=== PATIENT | female | born 1945 | race Caucasian/White ===

== ENCOUNTER → 2020-03-01 10:33 | Outpatient (ROUT) | payer OTHER, SELFPAY ==
[2020-03-04 12:12] LABS: COVID19 Sendout Not Detected (Not Detected)
== END ==
PROVIDERS: Visit Provider Internal Medicine
DX: Z11.59 Encounter for screening for other viral diseases (principal)
CPT/HCPCS: 87635

== ENCOUNTER → 2020-03-25 14:56 | Outpatient (CLI) | payer OTHER, SELFPAY ==
--- NOTE | 2020-03-25 | DI.RAD.S_ITS ---
PROCEDURE: XR FEMUR RT MIN 2V INDICATIONS: Other fracture of lower end of right femur TECHNIQUE: 4 views of the femur were acquired. COMPARISON: None. FINDINGS: Bones: No acute fractures or dislocations. No suspicious bony lesions. Note is made of extensive fracture fixation procedures with a left total hip arthroplasty, a large lateral fixation plate crossing from the subtrochanteric level inferiorly to the lateral femoral condyle, and also a medullary dino from below involving the distal femur. No evidence of device loosening or disruption. No definite osteomyelitis is found. No comparison images. Soft tissues: No suspicious soft tissue calcifications or masses. IMPRESSION: Extensive prior fracture fixation at the right femur, no comparison images are available for review and therefore the study is appreciably limited. This current study shows normal alignment and no evidence of fracture fixation device disruption. Dictated by: Romaine Peters M.D. on 03/25/2020 at 16:18 Approved by: Romaine Peters M.D. on 03/25/2020 at 16:20
== END ==
PROVIDERS: Referring Provider Registered Nurse; Visit Provider Registered Nurse
DX: S72.491D Other fracture of lower end of right femur, subsequent encounter for closed fracture with routine healing (principal); X58.XXXD Exposure to other specified factors, subsequent encounter
CPT/HCPCS: 73552

== ENCOUNTER → 2020-03-27 12:08 | Outpatient (ROUT) | payer OTHER, SELFPAY ==
[2020-03-29 18:39] LABS: COVID19 Sendout Not Detected (Not Detected)
== END ==
PROVIDERS: Visit Provider Internal Medicine
DX: Z11.59 Encounter for screening for other viral diseases (principal)
CPT/HCPCS: 87635

== ENCOUNTER → 2020-04-03 08:43 | Outpatient (ROUT) | payer OTHER, SELFPAY ==
[2020-04-03 09:07] LABS: Add Manual Diff / Slide Review NO; Basophils Absolute Auto 0 /uL (0-100); Basophils Percent Auto 0.4 % (0-2); Eosinophils Absolute Auto 200 /uL (0-450); Eosinophils Percent Auto 3.5 % (2-4); Hematocrit 31.4 % (36-46); Hemoglobin 10.1 g/dL (12.0-16.0); Lymphocytes Absolute Auto 1100 /uL (1100-4500); Lymphocytes Percent Auto 17.1 % (25-40); Mean Corpuscular HGB Conc 32.1 % (30-36); Mean Corpuscular Hemoglobin 28.5 PG (26-34); Mean Corpuscular Volume 88.9 fL (80-100); Monocytes Absolute Auto 700 /uL (0-900); Monocytes Percent Auto 10.5 % (3-14); Neutrophils Absolute Auto 4400 /uL (1500-7000); Neutrophils Percent Auto 68.5 % (50-75); Platelet Count 295 X10^3/uL (150-400); Red Blood Cell Count 3.53 X10^6/uL (4.0-5.2); Red Cell Distribution Width 16.7 % (11.6-14.8); White Blood Cell Count 6.5 X10^3/uL (4.5-11.0)
[2020-04-03 09:12] LABS: Alanine Aminotransferase 10 IU/L (<35); Albumin 3.4 g/dL (3.5-5.0); Albumin Globulin Ratio 1.4 (1.0-2.8); Alkaline Phosphatase 90 U/L (38-126); Aspartate Aminotransferase 22 IU/L (14-36); BUN Creatinine Ratio 23.2 (6-22); Bilirubin Total 0.7 mg/dL (0.2-1.3); Blood Urea Nitrogen 16 mg/dL (7-17); Calcium 9.5 mg/dL (8.4-10.2); Carbon Dioxide 29 mmol/L (22-32); Chloride 101 mmol/L (98-107); Cholesterol 134 mg/dL (140-199); Estimated Glomerular Filt Rate > 60.0 mL/min (>60); Globulin 2.4 g/dL (1.7-4.1); Glucose 82 mg/dL (80-110); HDL Cholesterol 56 mg/dL (40-60); HEMOLYSIS < 15 (0-50); LDL Cholesterol Calculated 52 mg/dL (<100); Magnesium 2.1 mg/dL (1.6-2.3); Potassium 4.8 mmol/L (3.4-5.1); Sodium 135 mmol/L (137-145); Total Protein 5.8 g/dL (6.3-8.2); Triglycerides 130 mg/dL (35-150)
[2020-04-03 09:42] LABS: Thyroid Stimulating Hormone 2.47 uIU/mL (0.47-4.68)
[2020-04-03 10:03] LABS: Vitamin B12 240 pg/mL (239-931)
== END ==
PROVIDERS: Visit Provider Nurse Practitioner Family
DX: Z98.890 Other specified postprocedural states (principal); R41.89 Other symptoms and signs involving cognitive functions and awareness; R73.9 Hyperglycemia, unspecified
CPT/HCPCS: 80053; 80061; 82607; 83036; 83735; 84443; 85025

== ENCOUNTER → 2020-04-13 06:51 | Outpatient (ROUT) | payer OTHER, SELFPAY ==
[2020-04-13 07:46] LABS: BUN Creatinine Ratio 26.4 (6-22); Blood Urea Nitrogen 19 mg/dL (7-17); Calcium 9.3 mg/dL (8.4-10.2); Carbon Dioxide 29 mmol/L (22-32); Chloride 102 mmol/L (98-107); Estimated Glomerular Filt Rate > 60.0 mL/min (>60); Glucose 94 mg/dL (80-110); HEMOLYSIS < 15 (0-50); Sodium 136 mmol/L (137-145)
== END ==
PROVIDERS: Visit Provider Registered Nurse
DX: R60.9 Edema, unspecified (principal); Z79.899 Other long term (current) drug therapy
CPT/HCPCS: 36415; 80048

== ENCOUNTER → 2020-05-08 08:09 | Outpatient (ROUT) | payer OTHER, SELFPAY ==
[2020-05-08 09:09] LABS: BUN Creatinine Ratio 21.4 (6-22); Blood Urea Nitrogen 18 mg/dL (7-17); Calcium 9.7 mg/dL (8.4-10.2); Carbon Dioxide 32 mmol/L (22-32); Chloride 96 mmol/L (98-107); Estimated Glomerular Filt Rate > 60.0 mL/min (>60); Glucose 85 mg/dL (80-110); HEMOLYSIS < 15 (0-50); Potassium 4.5 mmol/L (3.4-5.1); Sodium 136 mmol/L (137-145)
== END ==
PROVIDERS: PCP Nurse Practitioner Family; Visit Provider Nurse Practitioner Family
DX: R60.9 Edema, unspecified (principal)
CPT/HCPCS: 36415; 80048

== ENCOUNTER → 2020-07-10 08:30 | Outpatient (ROUT) | payer MEDICARE, SELFPAY ==
[2020-07-10 08:57] LABS: Add Manual Diff / Slide Review NO; Basophils Absolute Auto 0 /uL (0-100); Basophils Percent Auto 0.5 % (0-2); Eosinophils Absolute Auto 200 /uL (0-450); Eosinophils Percent Auto 4.2 % (2-4); Hematocrit 27.4 % (36-46); Lymphocytes Absolute Auto 1000 /uL (1100-4500); Mean Corpuscular HGB Conc 32.9 % (30-36); Mean Corpuscular Hemoglobin 29.9 PG (26-34); Mean Corpuscular Volume 90.9 fL (80-100); Monocytes Absolute Auto 700 /uL (0-900); Monocytes Percent Auto 13.6 % (3-14); Neutrophils Absolute Auto 3500 /uL (1500-7000); Neutrophils Percent Auto 63.7 % (50-75); Platelet Count 286 X10^3/uL (150-400); Red Blood Cell Count 3.01 X10^6/uL (4.0-5.2); Red Cell Distribution Width 14.6 % (11.6-14.8); White Blood Cell Count 5.5 X10^3/uL (4.5-11.0)
[2020-07-10 09:20] LABS: BUN Creatinine Ratio 28.4 (6-22); Blood Urea Nitrogen 21 mg/dL (7-17); Calcium 9.2 mg/dL (8.4-10.2); Carbon Dioxide 30 mmol/L (22-32); Chloride 101 mmol/L (98-107); Estimated Glomerular Filt Rate > 60.0 mL/min (>60); Glucose 84 mg/dL (80-110); HEMOLYSIS < 15 (0-50); Potassium 4.1 mmol/L (3.4-5.1); Sodium 135 mmol/L (137-145)
[2020-07-10 09:51] LABS: Thyroid Stimulating Hormone 2.91 uIU/mL (0.47-4.68)
[2020-07-10 10:08] LABS: Vitamin B12 380 pg/mL (239-931)
== END ==
PROVIDERS: PCP Nurse Practitioner Family; Visit Provider Nurse Practitioner Family
DX: R60.9 Edema, unspecified (principal); F32.9 Major depressive disorder, single episode, unspecified; Z79.899 Other long term (current) drug therapy
CPT/HCPCS: 36415; 80048; 82607; 84443; 85025

== ENCOUNTER → 2020-07-14 12:41 | Outpatient (ROUT) | payer MEDICARE, SELFPAY ==
[2020-07-14 13:49] LABS: HEMOLYSIS < 15 (0-50); Iron 80 ug/dL (37-170)
[2020-07-14 14:00] LABS: Percent Iron Saturation 22 % (15-50); Total Iron Binding Capacity 366 ug/dL (265-497); Transferrin 283 mg/dL (206-381)
[2020-07-14 15:53] LABS: Ferritin 31 ng/mL (11-264)
[2020-07-14 16:24] LABS: Folate > 20.0 ng/mL (2.76-20.0)
== END ==
PROVIDERS: PCP Nurse Practitioner Family; Visit Provider Nurse Practitioner Family
DX: D64.9 Anemia, unspecified (principal)
CPT/HCPCS: 36415; 82728; 82746; 83540; 83550

== ENCOUNTER → 2020-08-12 13:24 | Outpatient (CLI) | payer MEDICARE, SELFPAY ==
[2020-08-12 14:58] LABS: Add Manual Diff / Slide Review NO; Basophils Absolute Auto 0 /uL (0-100); Basophils Percent Auto 0.4 % (0-2); Eosinophils Absolute Auto 200 /uL (0-450); Eosinophils Percent Auto 3.3 % (2-4); Hematocrit 31.9 % (36-46); Hemoglobin 10.4 g/dL (12.0-16.0); Lymphocytes Absolute Auto 1100 /uL (1100-4500); Lymphocytes Percent Auto 19.5 % (25-40); Mean Corpuscular HGB Conc 32.6 % (30-36); Mean Corpuscular Hemoglobin 29.6 PG (26-34); Mean Corpuscular Volume 90.9 fL (80-100); Monocytes Absolute Auto 600 /uL (0-900); Monocytes Percent Auto 10.6 % (3-14); Neutrophils Absolute Auto 3800 /uL (1500-7000); Neutrophils Percent Auto 66.2 % (50-75); Platelet Count 287 X10^3/uL (150-400); Red Blood Cell Count 3.51 X10^6/uL (4.0-5.2); Red Cell Distribution Width 14.5 % (11.6-14.8); White Blood Cell Count 5.8 X10^3/uL (4.5-11.0)
[2020-08-12 15:54] LABS: BUN Creatinine Ratio 25.3 (6-22); Blood Urea Nitrogen 21 mg/dL (7-17); Calcium 9.4 mg/dL (8.4-10.2); Carbon Dioxide 31 mmol/L (22-32); Chloride 96 mmol/L (98-107); Estimated Glomerular Filt Rate > 60.0 mL/min (>60); Glucose 103 mg/dL (80-110); HEMOLYSIS < 15 (0-50); Potassium 4.7 mmol/L (3.4-5.1); Sodium 134 mmol/L (137-145)
== END ==
PROVIDERS: PCP Nurse Practitioner Family; Referring Provider Nurse Practitioner Family; Visit Provider Nurse Practitioner Family
DX: D64.9 Anemia, unspecified (principal); R60.9 Edema, unspecified
CPT/HCPCS: 36415; 80048; 85025

== ENCOUNTER → 2020-08-26 08:27 | Outpatient (ROUT) | payer MEDICARE, SELFPAY ==
[2020-08-26 09:24] LABS: BUN Creatinine Ratio 24.7 (6-22); Blood Urea Nitrogen 23 mg/dL (7-17); Calcium 9.2 mg/dL (8.4-10.2); Carbon Dioxide 34 mmol/L (22-32); Chloride 98 mmol/L (98-107); Estimated Glomerular Filt Rate 58.6 mL/min (>60); Glucose 76 mg/dL (80-110); HEMOLYSIS < 15 (0-50); Potassium 4.2 mmol/L (3.4-5.1); Sodium 133 mmol/L (137-145)
== END ==
PROVIDERS: PCP Nurse Practitioner Family; Visit Provider Nurse Practitioner Family
DX: R60.9 Edema, unspecified (principal)
CPT/HCPCS: 36415; 80048

== ENCOUNTER → 2020-09-30 07:29 | Outpatient (ROUT) | payer MEDICARE, SELFPAY ==
[2020-09-30 08:22] LABS: Add Manual Diff / Slide Review NO; Basophils Absolute Auto 0 /uL (0-100); Basophils Percent Auto 0.4 % (0-2); Eosinophils Absolute Auto 200 /uL (0-450); Eosinophils Percent Auto 4.4 % (2-4); Hematocrit 30.9 % (36-46); Hemoglobin 10.1 g/dL (12.0-16.0); Lymphocytes Absolute Auto 1000 /uL (1100-4500); Lymphocytes Percent Auto 18.1 % (25-40); Mean Corpuscular HGB Conc 32.7 % (30-36); Mean Corpuscular Volume 91.6 fL (80-100); Monocytes Absolute Auto 800 /uL (0-900); Monocytes Percent Auto 13.4 % (3-14); Neutrophils Absolute Auto 3600 /uL (1500-7000); Neutrophils Percent Auto 63.7 % (50-75); Platelet Count 255 X10^3/uL (150-400); Red Blood Cell Count 3.38 X10^6/uL (4.0-5.2); Red Cell Distribution Width 14.7 % (11.6-14.8); White Blood Cell Count 5.6 X10^3/uL (4.5-11.0)
[2020-09-30 08:51] LABS: BUN Creatinine Ratio 32.7 (6-22); Blood Urea Nitrogen 33 mg/dL (7-17); Calcium 9.1 mg/dL (8.4-10.2); Carbon Dioxide 31 mmol/L (22-32); Chloride 98 mmol/L (98-107); Estimated Glomerular Filt Rate 53.3 mL/min (>60); Glucose 87 mg/dL (80-110); HEMOLYSIS < 15 (0-50); Potassium 4.1 mmol/L (3.4-5.1); Sodium 134 mmol/L (137-145)
== END ==
PROVIDERS: PCP Nurse Practitioner Family; Visit Provider Nurse Practitioner Family
DX: R05 Cough (principal); R60.9 Edema, unspecified; Z79.899 Other long term (current) drug therapy
CPT/HCPCS: 36415; 80048; 85025

== ENCOUNTER → 2020-10-21 07:23 | Outpatient (ROUT) | payer MEDICARE, SELFPAY ==
[2020-10-21 08:38] LABS: BUN Creatinine Ratio 28.3 (6-22); Blood Urea Nitrogen 32 mg/dL (7-17); Calcium 9.5 mg/dL (8.4-10.2); Carbon Dioxide 30 mmol/L (22-32); Chloride 99 mmol/L (98-107); Estimated Glomerular Filt Rate 46.8 mL/min (>60); Glucose 91 mg/dL (80-110); HEMOLYSIS < 15 (0-50); Sodium 135 mmol/L (137-145)
== END ==
PROVIDERS: PCP Nurse Practitioner Family; Visit Provider Nurse Practitioner Family
DX: R60.9 Edema, unspecified (principal); Z79.899 Other long term (current) drug therapy
CPT/HCPCS: 36415; 80048

== ENCOUNTER → 2020-10-26 15:53 | Outpatient (CLI) | payer MEDICARE, SELFPAY ==
--- NOTE | 2020-10-26 15:54 | DI.ECHO.S_ITS ---
[facility]+ [facility] +---------+ : : [address] : [place] : : : : [id number] : : : : Phone: [phone]+ Echocardiogram Report + + :Name: FLORENTIN DILLON Study Date: 10/26/2020 Height: 62 in : :[facility] ReadingLocation: Weight: 265 lb : : Gender: Female BSA: 2.2 m2 : :: 1945 Age: 75 yrs BP: 121/77 mmHg: :Reason For Study: LE SWELLING AND A-FIB : :Ordering Physician: CAS- : :JAGDEEP LUGO Performed By: Monisha De Santiago : :Referring: JAGDEEP ASTUDILLO : + + Interpretation Summary Patient scanned supine in wheelchair due to severe pain when putting weight on feet. The study quality was technically difficult. The left ventricle is normal in size and wall thickness. The ejection fraction is estimated to be 60-65%. The right ventricle is normal in size and function. All the valves were not well visualized however no significant gross abnormalities seen. The IVC is of normal diameter and collapses greater than 50% with a sniff. This suggests a low right atrial pressure of 3 mm Hg. Procedure: A two-dimensional transthoracic echocardiogram with color flow and Doppler was performed. The study quality was technically difficult. There is no prior echocardiogram noted for this patient. The patient was in sinus rhythm with heart rates between 70-86 bpm during the exam. Left Ventricle: The left ventricle is normal in size and wall thickness. There is no thrombus. The ejection fraction is estimated to be 60-65%. There are no obvious focal wall motion abnormalities noted but poor endocardial definition reduces the sensitivity for the detection of such. Diastolic parameters suggest a relaxation abnormality of the left ventricle, consistent with probable normal filling pressures. Right Ventricle: The right ventricle is normal in size and function. Atria: The left atrium is borderline dilated. Right atrial size is normal. There is no Doppler evidence for an interatrial shunt. Mitral Valve: The mitral valve leaflets appear mildly thickened, but open well. There is mild mitral annular calcification. There is trace mitral regurgitation. Aortic Valve: There is mild aortic valve sclerosis. The aortic valve is not well visualized. The aortic valve is mildly calcified. There is no hemodynamically significant valvular aortic stenosis. No aortic regurgitation is present. Tricuspid Valve: The tricuspid valve is not well visualized, but is grossly normal. There is trace tricuspid regurgitation. The right ventricular systolic pressure is estimated to be at least 29 mmHg based on an estimated right atrial pressure of 3 mm Hg. Pulmonic Valve: The pulmonic valve is not well visualized. Great Vessels: The aortic root is normal size. The ascending aorta could not be visualized. The IVC is of normal diameter and collapses greater than 50% with a sniff. This suggests a low right atrial pressure of 3 mm Hg. Pericardium/ Pleura There is no pericardial effusion. There is no pleural effusion. MMode/2D Measurements & Calculations LVIDd: 5.0 cm LVOT diam: 2.0 cm LVIDs: 3.7 cm Ao root diam: 3.4 cm FS: 26.6 % EPSS: 0.88 cm IVSd: 1.0 cm LVPWd: 0.88 cm LV peoples. diameter/BSA (cm/m^2): 2.3 LV sys. diameter/BSA (cm/m^2): 1.7 LA A2 area: 21.5 cm2 RA long axis: 5.2 cm LA A4 area: 18.2 cm2 RA area: 18.8 cm2 LA length (vol): 4.6 cm RA vol: 58.6 ml LA vol: 71.6 ml RA : 27.2 ml/m2 LA vol index: 33.2 ml/m2 IVC diam: 1.4 cm RVD1 (basal): 3.6 cm TAPSE: 2.4 cm Doppler Measurements & Calculations Ao V2 max: 184.7 cm/sec LVOT Max Hammad: 103.9 cm/sec Ao V2 mean: 136.2 cm/sec LV V1 max P.3 mmHg Ao max P.6 mmHg LV V1 VTI: 22.8 cm Ao mean P.3 mmHg ANGEL(I,D): 1.7 cm2 Ao V2 VTI: 40.5 cm ANGEL(V,D): 1.7 cm2 sev ratio: 0.56 ANGEL indexed to BSA (cm^2/m^2): 0.81 MV E max hammad: 65.9 cm/sec TR max hammad: 254.0 cm/sec MV A max hammad: 77.0 cm/sec TR max P.8 mmHg MV E/A: 0.86 Med Peak E' Hammad: 6.1 cm/sec E/E' med: 10.8 Lat Peak E' Hammad: 10.0 cm/sec E/E' lat: 6.6 E/e' average: 8.7 MV dec time: 0.19 sec SV(LVOT): 70.4 ml Reading Physician:06:05 PM
== END ==
PROVIDERS: PCP Nurse Practitioner Family; Referring Provider Nurse Practitioner Family; Visit Provider Nurse Practitioner Family
DX: I48.91 Unspecified atrial fibrillation (principal); M79.89 Other specified soft tissue disorders
CPT/HCPCS: 93306

== ENCOUNTER → 2020-11-11 07:37 | Outpatient (ROUT) | payer MEDICARE, SELFPAY ==
[2020-11-11 08:23] LABS: Blood Urea Nitrogen 25 mg/dL (7-17); Calcium 9.7 mg/dL (8.4-10.2); Carbon Dioxide 32 mmol/L (22-32); Chloride 96 mmol/L (98-107); Estimated Glomerular Filt Rate 51.5 mL/min (>60); Glucose 80 mg/dL (80-110); HEMOLYSIS < 15 (0-50); Potassium 3.7 mmol/L (3.4-5.1); Sodium 134 mmol/L (137-145)
== END ==
PROVIDERS: PCP Nurse Practitioner Family; Visit Provider Nurse Practitioner Family
DX: N17.9 Acute kidney failure, unspecified (principal)
CPT/HCPCS: 36415; 80048

== ENCOUNTER → 2020-12-02 08:05 | Outpatient (ROUT) | payer MEDICARE, SELFPAY ==
[2020-12-02 08:58] LABS: BUN Creatinine Ratio 25.9 (6-22); Blood Urea Nitrogen 22 mg/dL (9-20); Calcium 9.9 mg/dL (8.4-10.2); Carbon Dioxide 29 mmol/L (22-32); Chloride 97 mmol/L (98-107); Estimated Glomerular Filt Rate > 60.0 mL/min (>60); Glucose 96 mg/dL (80-110); HEMOLYSIS < 15 (0-50); Potassium 3.5 mmol/L (3.4-5.1); Sodium 137 mmol/L (137-145)
== END ==
PROVIDERS: Visit Provider Nurse Practitioner Family
DX: R60.9 Edema, unspecified (principal); Z79.899 Other long term (current) drug therapy
CPT/HCPCS: 36415; 80048

== ENCOUNTER → 2020-12-09 07:34 | Outpatient (ROUT) | payer MEDICARE, SELFPAY ==
[2020-12-09 08:51] LABS: Add Manual Diff / Slide Review NO; Basophils Absolute Auto 0 /uL (0-100); Basophils Percent Auto 0.5 % (0-2); Eosinophils Absolute Auto 200 /uL (0-450); Eosinophils Percent Auto 3.3 % (2-4); Hematocrit 30.3 % (36-46); Hemoglobin 10.2 g/dL (12.0-16.0); Lymphocytes Absolute Auto 800 /uL (1100-4500); Lymphocytes Percent Auto 14.5 % (25-40); Mean Corpuscular HGB Conc 33.6 % (30-36); Mean Corpuscular Hemoglobin 30.9 PG (26-34); Mean Corpuscular Volume 92.1 fL (80-100); Monocytes Absolute Auto 700 /uL (0-900); Monocytes Percent Auto 13.6 % (3-14); Neutrophils Absolute Auto 3600 /uL (1500-7000); Neutrophils Percent Auto 68.1 % (50-75); Platelet Count 298 X10^3/uL (150-400); Red Cell Distribution Width 13.7 % (11.6-14.8); White Blood Cell Count 5.3 X10^3/uL (4.5-11.0)
[2020-12-09 09:06] LABS: Alanine Aminotransferase 13 IU/L (<35); Albumin 3.7 g/dL (3.5-5.0); Albumin Globulin Ratio 1.4 (1.0-2.8); Alkaline Phosphatase 57 U/L (38-126); Aspartate Aminotransferase 20 IU/L (14-36); BUN Creatinine Ratio 24.7 (6-22); Bilirubin Total 0.2 mg/dL (0.2-1.3); Blood Urea Nitrogen 22 mg/dL (7-17); Calcium 9.7 mg/dL (8.4-10.2); Carbon Dioxide 30 mmol/L (22-32); Chloride 100 mmol/L (98-107); Estimated Glomerular Filt Rate > 60.0 mL/min (>60); Globulin 2.6 g/dL (1.7-4.1); Glucose 105 mg/dL (80-110); HEMOLYSIS < 15 (0-50); Magnesium 2.1 mg/dL (1.6-2.3); Potassium 3.6 mmol/L (3.4-5.1); Sodium 138 mmol/L (137-145); Total Protein 6.3 g/dL (6.3-8.2)
[2020-12-09 09:11] LABS: Erythrocyte Sedimentation Rate 45 MM/HR (0-20)
[2020-12-11 23:21] LABS: CCP Antibodies IgG/IgA 2 units (0-19)
== END ==
PROVIDERS: PCP Nurse Practitioner Family; Visit Provider Nurse Practitioner Family
DX: R25.2 Cramp and spasm (principal); R52 Pain, unspecified; N18.9 Chronic kidney disease, unspecified
CPT/HCPCS: 36415; 80053; 83735; 85025; 85651; 86140; 86200

== ENCOUNTER → 2020-12-16 07:49 | Outpatient (ROUT) | payer MEDICARE, SELFPAY ==
[2020-12-16 09:38] LABS: Cortisol AM (Before 10AM) 16.2 ug/dL (4.46-22.7)
[2020-12-16 10:03] LABS: Thyroid Stimulating Hormone 3.67 uIU/mL (0.47-4.68)
[2020-12-18 00:07] LABS: Aldolase 4.4 U/L (3.3-10.3)
== END ==
PROVIDERS: PCP Nurse Practitioner Family; Visit Provider Internal Medicine
DX: R63.5 Abnormal weight gain (principal); Z72.9 Problem related to lifestyle, unspecified
CPT/HCPCS: 36415; 82085; 82533; 84443

== ENCOUNTER 2020-12-16 22:51 | Emergency (ER) | payer MEDICARE, SELFPAY ==
[2020-12-16 23:13] VITALS: BP 137/89; PULSE 93; RESP 20; TEMP 36.7; O2SAT 96
--- NOTE | 2020-12-17 00:48 | ED.EXTPRO ---
HPI - Extremity Problem General Chief complaint: Extremity Problem,Nontraumatic Stated complaint: bilateral lower leg pain Time Seen by Provider: 12/17/20 00:47 Source: patient Mode of arrival: Ambulatory History of Present Illness HPI Narrative: Patient is a 75-year-old female who has chronic ongoing bilateral lower leg pain. She has chronic lymphedema and has severe arthritis. She says her pain has progressively gotten worse over time and now she has actually severe anxiety every time the thought of moving happened. She was started on 0.5 mg of lorazepam about 9 days ago. She says is not really helping. She says if she does not move she does not have severe pain. She currently is not having severe pain she feels of her anxiety was taken care of the it would help her pain. She denies any fever or chills MD Complaint: extremity pain and extremity swelling Related Data Allergies Allergy/AdvReac Type Severity Reaction Status Date / Time codeine Allergy Verified 12/17/20 01:17 diphenhydramine Allergy Verified 12/17/20 01:16 [From Benadryl Allergy] Penicillins Allergy Verified 12/17/20 01:17 Review of Systems Review of Systems Narrative: GENERAL: Denies chills,fever HEENT: Denies throat pain RESPIRATORY: Denies dyspnea, cough, wheezing CARDIOVASCULAR: Denies chest pain, palpitations GASTROINTESTINAL: Denies nausea, vomiting MUSCULOSKELETAL: See HPI SKIN: No rash, no laceration, no pruritus NEUROLOGIC: Denies weakness, dizziness, headache, numbness PSYCH: Anxious 8 point review of systems is negative except for those stated above and HPI Patient History Medical History Arthritis Lymphedema Exam Initial Vital Signs Initial Vital Signs: Vital Signs Temperature 98.0 F 12/16/20 23:13 Pulse Rate 93 H 12/16/20 23:13 Respiratory Rate 20 12/16/20 23:13 Blood Pressure 137/89 12/16/20 23:13 Pulse Oximetry 96 12/16/20 23:13 GENERAL: Pleasant 75-year-old female sitting in wheelchair CARDIOVASCULAR: peripheral pulses in tact, cap refill <2 sec RESPIRATORY: No respiratory distress, speaks in full sentences without difficulty EXTREMITIES: Lower extremities are bilateral lymphedema no erythema need are nontender NEUROLOGICAL: Cranial nerves II through XII grossly intact. Normal gait and speech. SKIN: Warm, dry, no petechiae, no rashes or lesions. Course Orders Ordered: Discontinued Medications Lorazepam (Lorazepam 0.5 Mg Tablet) 1 mg PO NOW ONE Stop: 12/17/20 01:04 Last Admin: 12/17/20 01:15 Dose: 1 mg Documented by: LACEY Vital Signs Vital signs: Vital Signs - 8 hr 12/16/20 23:13 12/17/20 01:30 Temperature 98.0 F Pulse Rate 93 H 88 Respiratory Rate 20 20 Blood Pressure 137/89 130/80 Pulse Oximetry 96 97 MDM - Extremity (Nontraumatic) MDM Narrative Medical decision making narrative: Patient is having acute on chronic pain ongoing anxiety. She has chronic lymphedema and chronic osteoarthritis pain seems to be controlled when she is not moving or doing anything however when she starts the pain gets quite severe in she is quite anxious about it. I discussed with her if she needs something for pain in the emergency department or more something for anxiety to help her cope with the pain. At this time she is requesting something for anxiety. Records reveal that she has been getting 0.5 mg of lorazepam which she states is not working will try 1 mg this evening to see if it helps. She does need to follow up with primary care provider in regards to chronic ongoing pain management Discharge Plan Departure Patient Disposition: Home Clinical Impression: Lymphedema, Chronic pain, Anxiety Instructions: DI for Anxiety -- Adult Activity Restrictions/Additional Instructions: *You have been diagnosed with chronic pain and anxiety *What to do: I believe we are having some anxiety about her chronic pain. Unfortunately please discuss medications and options with her primary care provider you may also need to revisit orthopedics *Continue to take medications as directed You were given Ativan/lorazepam 1 mg instead of 0.5 mg this evening if this is helpful please talk to your primary care provider *Follow up with your primary care provider in 2-3 days *Return to ER if you should have fever chills worsening pain worsening anxiety or any new, worsening or concerning symptoms Referrals: Inés Whitley ARNP [Primary Care Provider] -
[2020-12-17] MEDS: LORazepam 0.5 MG TABLET 1 MG PO (01:15)
[2020-12-17 01:30] VITALS: BP 130/80; PULSE 88; RESP 20; O2SAT 97
== END 2020-12-17 01:40 | disposition home or self-care (01) ==
PROVIDERS: Emergency Provider Emergency Medicine; PCP Nurse Practitioner Family
DX: I89.0 Lymphedema, not elsewhere classified (principal); G89.29 Other chronic pain; F41.9 Anxiety disorder, unspecified
CPT/HCPCS: 99283

== ENCOUNTER → 2021-01-23 11:30 | Outpatient (ROUT) | payer MEDICARE, SELFPAY ==
[2021-01-23 11:35] LABS: RBC Urine None Seen (0-5/HPF)
[2021-01-23 11:49] LABS: Bilirubin Urine UA NEGATIVE (NEGATIVE); Color Urine UA YELLOW; Glucose Urine UA NEGATIVE (Negative); Ketones Urine UA NEGATIVE (NEGATIVE); Leukocyte Esterase Urine UA 2+ (NEGATIVE); Nitrite Urine UA POSITIVE (Negative); Occult Blood Urine UA NEGATIVE (Negative); Protein Urine UA NEGATIVE (Negative); Urobilinogen Urine UA 0.2 E.U./dL (0.2)
[2021-01-23 11:50] LABS: Appearance Urine UA CLOUDY
[2021-01-23 12:00] LABS: Amorphous Sediment Urine 2+; Bacteria Urine Many (>30); Squamous Epithelial Cell Urine 5-10 /HPF (0-5/HPF); WBC Urine 10-30/HPF (0-5/HPF)
[2021-01-23 12:01] LABS: Mucus Urine 2+ (Negative)
== END ==
PROVIDERS: PCP Nurse Practitioner Family; Visit Provider Nurse Practitioner Family
DX: R35.0 Frequency of micturition (principal)
CPT/HCPCS: 81001; 87077; 87086; 87186

== ENCOUNTER → 2021-03-10 15:41 | Outpatient (ROUT) | payer MEDICARE, SELFPAY ==
[2021-03-10 15:43] LABS: RBC Urine None Seen (0-5/HPF); WBC Urine None Seen (0-5/HPF)
[2021-03-10 15:47] LABS: Appearance Urine UA CLEAR; Bilirubin Urine UA NEGATIVE (NEGATIVE); Color Urine UA YELLOW; Glucose Urine UA NEGATIVE (Negative); Ketones Urine UA NEGATIVE (NEGATIVE); Leukocyte Esterase Urine UA TRACE (NEGATIVE); Nitrite Urine UA NEGATIVE (Negative); Occult Blood Urine UA NEGATIVE (Negative); Protein Urine UA NEGATIVE (Negative)
[2021-03-10 16:02] LABS: pH Urine UA 6.5 (4.5-8.0)
[2021-03-10 16:05] LABS: Bacteria Urine Many (>30); Culture Indicated Urine Specimen Cultured; Squamous Epithelial Cell Urine 0-1 /HPF (0-5/HPF)
== END ==
PROVIDERS: PCP Nurse Practitioner Family; Visit Provider Nurse Practitioner Family
DX: R30.0 Dysuria (principal)
CPT/HCPCS: 81001; 87077; 87086

== ENCOUNTER → 2021-03-31 08:42 | Outpatient (ROUT) | payer MEDICARE, SELFPAY ==
[2021-03-31 09:32] LABS: Add Manual Diff / Slide Review NO; Basophils Absolute Auto 0 /uL (0-100); Basophils Percent Auto 0.2 % (0-2); Eosinophils Absolute Auto 100 /uL (0-450); Eosinophils Percent Auto 1.9 % (2-4); Hematocrit 31.8 % (36-46); Hemoglobin 10.3 g/dL (12.0-16.0); Lymphocytes Absolute Auto 1500 /uL (1100-4500); Lymphocytes Percent Auto 24.1 % (25-40); Mean Corpuscular HGB Conc 32.6 % (30-36); Mean Corpuscular Hemoglobin 29.5 PG (26-34); Mean Corpuscular Volume 90.5 fL (80-100); Monocytes Absolute Auto 800 /uL (0-900); Neutrophils Absolute Auto 3700 /uL (1500-7000); Neutrophils Percent Auto 60.8 % (50-75); Platelet Count 279 X10^3/uL (150-400); Red Blood Cell Count 3.51 X10^6/uL (4.0-5.2); Red Cell Distribution Width 15.6 % (11.6-14.8); White Blood Cell Count 6.1 X10^3/uL (4.5-11.0)
[2021-03-31 09:59] LABS: Alanine Aminotransferase 12 IU/L (<35); Albumin 3.7 g/dL (3.5-5.0); Albumin Globulin Ratio 1.3 (1.0-2.8); Alkaline Phosphatase 69 U/L (38-126); Aspartate Aminotransferase 21 IU/L (14-36); Blood Urea Nitrogen 13 mg/dL (7-17); Calcium 9.6 mg/dL (8.4-10.2); Carbon Dioxide 31 mmol/L (22-32); Chloride 100 mmol/L (98-107); Estimated Glomerular Filt Rate > 60.0 mL/min (>60); Globulin 2.8 g/dL (1.7-4.1); Glucose 91 mg/dL (80-110); HEMOLYSIS < 15 (0-50); Potassium 3.5 mmol/L (3.4-5.1); Sodium 139 mmol/L (137-145); Total Protein 6.5 g/dL (6.3-8.2)
[2021-03-31 10:08] LABS: NT-proBNP (BNP-Adult 18+) 197 pg/mL (<450)
[2021-03-31 10:47] LABS: Vitamin B12 738 pg/mL (239-931)
== END ==
PROVIDERS: PCP Nurse Practitioner Family; Visit Provider Nurse Practitioner Family
DX: F32.9 Major depressive disorder, single episode, unspecified (principal); R60.9 Edema, unspecified
CPT/HCPCS: 36415; 80053; 82607; 83880; 85025

== ENCOUNTER 2021-04-02 14:07 | Observation (INO) | payer MEDICARE, SELFPAY ==
[2021-04-02 14:18] VITALS: BP 120/56; PULSE 81; RESP 18; TEMP 37.4; O2SAT 96; BMI 50.1
--- NOTE | 2021-04-02 14:22 | DI.CT.S_ITS ---
PROCEDURE: CT HEAD/BRAIN WO CON INDICATIONS: altered mental status, word finding problems. unknown onset TECHNIQUE: Noncontrast 4.5 mm thick angled axial sections acquired from the foramen magnum to the vertex, with coronal and sagittal reformats. For radiation dose reduction, the following was used: automated exposure control, adjustment of mA and/or kV according to patient size. COMPARISON: None. FINDINGS: Image quality: Excellent. CSF spaces: Basal cisterns are patent. No extra-axial fluid collections. The ventricles are symmetric in size and shape. Brain: No intracranial bleeds or masses. There is cerebral volume loss for age, with resultant ventricular and sulcal prominence. There are periventricular and deep white matter chronic small vessel ischemic changes. There is intracranial internal carotid artery atherosclerosis. Skull and face: Calvarium and visualized facial bones appear intact, without suspicious lesions. Sinuses: Visualized sinuses and mastoids are clear. IMPRESSION: 1. Age related volume loss and small vessel ischemic change. 2. No evidence acute stroke, hemorrhage, or mass. Dictated by: Franklin Mckeon M.D. on 04/02/2021 at 14:54 Approved by: Franklin Mckeon M.D. on 04/02/2021 at 14:55
--- NOTE | 2021-04-02 14:23 | DI.CT.S_ITS ---
PROCEDURE: CT ANGIO HEAD AND NECK INDICATIONS: stroke TECHNIQUE: After the administration of intravenous contrast, 1 mm thick sections acquired from the aortic arch through the [place]. Post-contrast 4.5 mm thick sections then re-acquired from the foramen magnum to the vertex. 3-dimensional dcjvpmk-iocxkigly-cazmikdojl (MIP) and/or volume rendering reformats were acquired of the central intracranial vasculature and neck separately. COMPARISON: [facility], CT, CT HEAD/BRAIN WO CON, 04/02/2021, 14:29. FINDINGS: Image quality: Excellent. BRAIN: CSF spaces: Ventricles are normal in size and shape. Basal cisterns are patent. No extra-axial fluid collections. Brain: No midline shift. No intracranial bleeds or masses. [place]-white matter interface appears intact. Age-related volume loss and small vessel ischemic change. Skull and face: Calvarium and facial bones appear intact, without suspicious lesions. Orbits appear normal. Sinuses: Sinuses and mastoids are clear. HEAD CT ANGIOGRAPHY: Anterior circulation: Intracranial internal carotid arteries are normal in size and flow. The flow within the paired anterior cerebral arteries is normal and symmetric. The flow within the middle cerebral arteries is normal and symmetric. The anterior communicating artery is seen. No aneurysms are seen. Posterior circulation: The distal right vertebral artery is dominant. The distal left vertebral artery is diminutive, the V4 segment. They join to form a normal appearing basilar artery. Flow within the posterior cerebral arteries is normal and symmetric. No aneurysms are seen. NECK CT ANGIOGRAPHY: Carotid system: The great vessels demonstrate a conventional anatomy as they arise from the aortic arch. The origins of the common carotid arteries appear patent. The common carotid arteries demonstrate normal caliber and courses. The bifurcation regions are both widely patent. Right internal carotid artery is widely patent. Mild proximal left internal carotid artery disease, without flow-limiting stenosis.. Posterior circulation: The origins of the vertebral arteries both appear widely patent. The more superior extracranial portions of both vertebral arteries also demonstrate normal courses and calibers. They join to form a normal appearing basilar artery. Soft tissues: Visualized neck soft tissues demonstrate no suspicious abnormalities. Bones: No suspicious bony lesions. Visualized cervical spine appears normally aligned. IMPRESSION: 1. Age-related volume loss and small vessel ischemic change. 2. No evidence acute stroke, hemorrhage, or mass. 3. Diminutive distal left vertebral artery, likely variant anatomy. CTA head otherwise unremarkable without stenosis, aneurysm, occlusion, or focal filling defect. 4. Mild proximal left internal carotid artery disease. Otherwise unremarkable CTA neck. Comment: Findings were discussed with Dr. Singh on 04/02/2021 at 1507 hours Any quantitative measurements of stenosis were performed using NASCET criteria. Dictated by: Franklin Mckeon M.D. on 04/02/2021 at 15:00 Approved by: Franklin Mckeon M.D. on 04/02/2021 at 15:08
[2021-04-02 14:33] LABS: Add Manual Diff / Slide Review NO; Basophils Absolute Auto 100 /uL (0-100); Basophils Percent Auto 0.7 % (0-2); Eosinophils Absolute Auto 200 /uL (0-450); Eosinophils Percent Auto 2.5 % (2-4); Hematocrit 31.4 % (36-46); Hemoglobin 10.1 g/dL (12.0-16.0); Lymphocytes Absolute Auto 1000 /uL (1100-4500); Lymphocytes Percent Auto 13.4 % (25-40); Mean Corpuscular HGB Conc 32.3 % (30-36); Mean Corpuscular Hemoglobin 29.3 PG (26-34); Mean Corpuscular Volume 90.9 fL (80-100); Monocytes Absolute Auto 800 /uL (0-900); Monocytes Percent Auto 11.2 % (3-14); Neutrophils Absolute Auto 5300 /uL (1500-7000); Neutrophils Percent Auto 72.2 % (50-75); Platelet Count 268 X10^3/uL (150-400); Red Blood Cell Count 3.45 X10^6/uL (4.0-5.2); Red Cell Distribution Width 15.2 % (11.6-14.8); White Blood Cell Count 7.4 X10^3/uL (4.5-11.0)
[2021-04-02 14:44] LABS: INR 1.7 (0.9-1.3); Prothrombin Time 18.9 SECONDS (10.1-12.7)
[2021-04-02 14:47] LABS: PTT Partial Thromboplastin Tim 43 SECONDS (26.4-36.2)
[2021-04-02 14:49] LABS: BUN Creatinine Ratio 22.1 (6-22); Blood Urea Nitrogen 17 mg/dL (7-17); Calcium 9.3 mg/dL (8.4-10.2); Carbon Dioxide 30 mmol/L (22-32); Chloride 98 mmol/L (98-107); Creatine Kinase 58 U/L (30-135); Estimated Glomerular Filt Rate > 60.0 mL/min (>60); Glucose 116 mg/dL (80-110); Potassium 4.7 mmol/L (3.4-5.1); Sodium 136 mmol/L (137-145)
[2021-04-02 14:50] LABS: HEMOLYSIS 119 (0-50)
[2021-04-02 15:01] LABS: Troponin I < 0.012 ng/mL (0.01-0.034)
--- NOTE | 2021-04-02 15:06 | ED.NEUROSD ---
HPI - Neuro Symptoms/Deficit General Chief Complaint: Neuro Symptoms/Deficit Stated Complaint: Aletred mental status Time Seen by Provider: 04/02/21 14:12 Source: patient and EMS Mode of arrival: Family Vehicle Limitations: altered mental status History of Present Illness HPI Narrative: 75-year-old female comes emergency department with altered mental status patient was sent from [facility]. I spoke with Inés Bhagat. Unknown onset patient's speech is dysarthric today. They are unable to ascertain if it was acute onset this morning or if she woke up with these symptoms but there is a marked change. Patient is on Eliquis for atrial fibrillation, she has a history of hypertension, morbid obesity, osteoarthritis with known major depressive disorder and patient is typically immobile or wheelchair bound and unable to ambulate safely. Patient cannot give me an exact timeline she thinks her symptoms started in the last 1-2 days. She denies any headache. She denies any vision changes. She is able to speak but does have some difficulty and is able to express that she is having some expressive aphasia. She denies any chest pain or new shortness of breath she denies any new numbness, tingling of her extremities. On exam she appreciates her right leg seems weaker. She has difficulty tell me of her upper extremities are weak and she has quite a bit of pain chronically in her shoulders and has difficulty with the NIH exam. Patient but denies any diarrhea, constipation or new GI issues. She denies any new urinary issues. She does note that her extremities have been more swollen they are probably a little bit better and she notes that they have been red for a while. She does have a small wound on the left hodges which has been treated and they are currently watching. On Anticoagulants: Yes Related Data Home Medications Medication Instructions Recorded Confirmed albuterol sulfate 90 mcg/actuation 2 inh INHALATION Q4HR PRN 04/02/21 04/02/21 aerosol inhaler apixaban 5 mg tablet (Eliquis) 5 mg PO BID 04/02/21 04/02/21 bisacodyl 10 mg rectal suppository 10 mg [place] DAILY 04/02/21 04/02/21 bisacodyl 5 mg tablet 10 mg PO DAILY PRN 04/02/21 04/02/21 cholecalciferol (vitamin D3) 25 25 mcg PO DAILY 04/02/21 04/02/21 mcg (1,000 unit) tablet (Vitamin D3) citalopram 20 mg tablet 20 mg PO DAILY 04/02/21 04/02/21 cyanocobalamin (vitamin B-12) 1,000 mcg PO DAILY 04/02/21 04/02/21 1,000 mcg tablet (Vitamin B-12) diclofenac sodium 1 % topical gel 4 g TOPICAL BID 04/02/21 04/02/21 fexofenadine 60 mg tablet 60 mg PO BID PRN 04/02/21 04/02/21 fluticasone furoate 200 1 inh INHALATION DAILY 04/02/21 04/02/21 mcg/actuation blister powder for inhalation (Arnuity Ellipta) furosemide 80 mg tablet 80 mg PO DAILY 04/02/21 04/02/21 hydrocodone 5 mg-acetaminophen 325 1 tab PO Q4H PRN 04/02/21 04/02/21 mg tablet hydrocodone 5 mg-acetaminophen 325 2 tab PO BEDTIME 04/02/21 04/02/21 mg tablet hydrocortisone 1 % topical cream 1 applic TOPICAL Q6H PRN 04/02/21 04/02/21 lorazepam 0.5 mg tablet 0.5 - 1 mg Q6H PRN 04/02/21 04/02/21 magnesium hydroxide 400 mg/5 mL 400 mg PO DAILY PRN 04/02/21 04/02/21 oral suspension (Milk of Magnesia) magnesium oxide 400 mg PO BID 04/02/21 04/02/21 melatonin 3 mg tablet 6 mg PO BEDTIME 04/02/21 04/02/21 metoprolol succinate 25 mg 25 mg PO DAILY 04/02/21 04/02/21 tablet,extended release 24 hr montelukast 10 mg tablet 10 mg PO BEDTIME 04/02/21 04/02/21 nystatin 100,000 unit/gram topical 1 applic TOPICAL Q6H PRN 04/02/21 04/02/21 powder omeprazole 40 mg capsule,delayed 40 mg PO DAILY 04/02/21 04/02/21 release polyethylene glycol 3350 17 gram 17 g PO DAILY PRN 04/02/21 04/02/21 oral powder packet potassium chloride 20 mEq 20 meq PO DAILY 04/02/21 04/02/21 tablet,extended release(part/cryst) vit no.95-ferrous 1 tab PO DAILY 04/02/21 04/02/21 fumarate 28 mg-folic acid 800 mcg tablet () sennosides 8.6 mg tablet (senna) 8.6 mg PO DAILY PRN 04/02/21 04/02/21 Allergies Allergy/AdvReac Type Severity Reaction Status Date / Time codeine Allergy Verified 04/02/21 14:18 diphenhydramine Allergy Verified 04/02/21 14:18 [From Benadryl Allergy] Penicillins Allergy Verified 04/02/21 14:18 Review of Systems Review of Systems ROS Unobtainable: All systems reviewed & are unremarkable except as noted in HPI and below Hematologic/Lymphatic On Anticoagulants: Yes Patient History Medical History Arthritis Asthma Atrial fibrillation Essential hypertension Frequent falls GERD (gastroesophageal reflux disease) Insomnia Iron deficiency anemia Lymphedema Major depressive disorder, recurrent episode with anxious distress Morbid obesity with BMI of 45.0-49.9, adult Osteoarthritis Unstable gait Social History Smoking Status: Former smoker Smoking Status: Former smoker alcohol intake frequency: 0-2 drinks per day Substance Use Type: does not use Exam Narrative Exam Narrative: GEN: Female with a BMI of 49, alert and oriented x 3, patient appears to be in mild distress. HEENT: Atraumatic, pupils are equal round reactive to light, extraocular movements are intact, nares are clear, TMs are clear with no fluid, there is no conjunctival pallor. Throat is clear without any exudates, erythema, tonsillar enlargement or uvular deviation, HEART: Regular rate and rhythm without murmur, clicks, rubs. LUNGS:Lungs clear to auscultation, no wheezes, rales, crackles, chest moves symmetrically, no tachypnea or accessory muscle use. ABD:bowel sounds normal, soft, non-tender, no guarding, rebound, rigidity, no masses noted, no hepatosplenomegaly :No CVA tenderness MSCL: Non-tender, no muscle atrophy, patient has quite a bit difficulty with bilateral upper extremities being straight causes significant pain in both shoulders. She has not had recent trauma and states this is chronic. She does not have a obvious weakness with push, pull or pastry wrapper bilaterally. She is able to perform straight leg raise with bilateral lower extremities and there does appear to be some weakness on the right with mild drift in comparison to the left. Patient has bilateral lower extremity edema. She has warmth and erythema of both lower extremities with a superficial abrasion over the left anterior hodges approximately 2 cm in size. NEURO:CN 2-12 intact, sensation normal, reflexes 2/4 upper and lower extremities. Unable to perform full NIH exam secondary to patient's chronic medical debility. Patient does have expressive aphasia on exam and some mild dysarthria. Visual lynn appear to be intact. Initial Vital Signs Initial Vital Signs: Vital Signs Temperature 99.3 F 04/02/21 14:18 Pulse Rate 81 04/02/21 14:18 Respiratory Rate 18 04/02/21 14:18 Blood Pressure 120/56 L 04/02/21 14:18 Pulse Oximetry 96 04/02/21 14:18 Course Orders Ordered: ED Orders 04/02/21 14:22 CT head/brain wo con Stat Basic Metabolic Panel Stat Complete Blood Count AUTO DIFF Stat NT-proBNP (BNP-Adult 18+) Stat Partial Thromboplastin Time Stat Procalcitonin Stat Prothrombin Time INR Stat Troponin & CK Cardiac Panel Stat 04/02/21 14:23 CT angio head and neck Stat 04/02/21 15:11 Urine Drug Screen, Rapid Stat 04/02/21 15:55 COVID19 - 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 (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/PCR) Stat 04/02/21 16:09 EKG-12 Lead Stat Acetaminophen (Acetaminophen 325 Mg Tablet) 650 mg PO Q6HR PRN PRN Reason: Fever/Mild Pain (1-3) Last Admin: 04/02/21 21:56 Dose: 650 mg Documented by: WILFRED Hydrocodone Bitart/Acetaminophen (Hydrocodone/Acet 5/325 Tablet) 1 tab PO Q4H PRN PRN Reason: Pain (Scale Score 1-3) Hydrocodone Bitart/Acetaminophen (Hydrocodone/Acet 5/325 Tablet) 2 tab PO BEDTIME WARD Last Admin: 04/02/21 21:00 Dose: 2 tab Documented by: CTRANGUS Al Hydrox/Mg Hydrox/Simethicone (Mag Hydrox/Alum/Simeth 30 Ml Udc) 30 ml PO Q6HR PRN PRN Reason: Dyspepsia Last Admin: 04/02/21 21:01 Dose: 30 ml Documented by: CTRANGUS Albuterol (Albuterol Hfa Mdi 60 Puff/8 Gm Inhaler) 2 puff INH Q4HR PRN PRN Reason: Shortness Of Breath Apixaban (Apixaban 5 Mg Tablet) 5 mg PO BID [facility] Last Admin: 04/02/21 20:59 Dose: 5 mg Documented by: SUKHI Aspirin (Aspirin Ec 325 Mg Tablet) 325 mg PO DAILY [facility] Atorvastatin Calcium (Atorvastatin 20 Mg Tablet) 80 mg PO BEDTIME [facility] Last Admin: 04/02/21 20:59 Dose: 80 mg Documented by: SUKHI Citalopram Hydrobromide (Citalopram 10 Mg Tablet) 20 mg PO DAILY [facility] Diclofenac Sodium (Diclofenac 1% Gel 100 Gm) 4 applic TOP BID [facility] Last Admin: 04/02/21 21:13 Dose: Not Given Documented by: SUKHI Furosemide (Furosemide 40 Mg Tablet) 80 mg PO DAILY [facility] Sodium Chloride (Normal Saline 0.9%) 1,000 mls @ 150 mls/hr IV CONT [facility] Last Infusion: 04/02/21 18:17 Dose: 0 mls/hr Documented by: Admin: 04/02/21 15:31 Dose: 150 mls/hr Documented by: LEYDA Lorazepam (Lorazepam 0.5 Mg Tablet) 1 mg PO Q6H PRN PRN Reason: Anxiety Magnesium Hydroxide (Magnesium Hydroxide 30 Ml Udc) 30 ml PO DAILY PRN PRN Reason: Constipation Magnesium Hydroxide (Magnesium Hydroxide 30 Ml Udc) 30 ml PO DAILY PRN PRN Reason: Constipation Magnesium Oxide (Magnesium Oxide 400 Mg Tablet) 400 mg PO BID [facility] Last Admin: 04/02/21 21:12 Dose: 400 mg Documented by: SUKHI Melatonin (Melatonin 3 Mg Tablet) 6 mg PO BEDTIME [facility] Last Admin: 04/02/21 21:00 Dose: 6 mg Documented by: SUKHI Metoprolol Succinate (Metoprolol Er 25 Mg Tablet) 25 mg PO DAILY [facility] Naloxone HCl (Naloxone 0.4 Mg/Ml Vial) 0.2 mg IV Q2MIN PRN PRN Reason: Opiate Reversal Nystatin (Nystatin Powder 15gm) 1 applic TOP Q6H PRN PRN Reason: Rash Ondansetron HCl (Ondansetron 4 Mg/2 Ml Inj) 4 mg IV Q8HR PRN PRN Reason: Nausea And Vomiting Last Admin: 04/02/21 21:01 Dose: 4 mg Documented by: SUKHI Pantoprazole Sodium (Pantoprazole Dr 40 Mg Tablet) 40 mg PO 0600 WARD Potassium Chloride (Potassium Chloride 20 Meq Tab) 20 meq PO DAILY [facility]ARD Sennosides (Sennosides 8.6 Mg Tablet) 17.2 mg PO BEDTIME WARD Last Admin: 04/02/21 21:00 Dose: 17.2 mg Documented by: SUKHI Discontinued Medications Aspirin (Aspirin 81 Mg Chew Tab) 324 mg PO NOW ONE Stop: 04/02/21 16:18 Last Admin: 04/02/21 16:35 Dose: 324 mg Documented by: LEYDA Consultations Consultation #1: Dr. Delgado accepts for admission. After discussion head CT and CT angiography do not show acute changes. Patient is far outside the window for intervention. She is on Eliquis daily for atrial fibrillation and after discussion was felt appropriate to come as if she is positive for stroke and has failed on Eliquis will need to have her medications changed. We had did discuss that patient had body habitus will preclude her from being able to obtain an MRI. Patient does not have any acute labs that would cause her symptoms today. Patient is covid negative. Vital Signs Vital signs: Vital Signs - 8 hr 04/02/21 14:18 04/02/21 16:01 04/02/21 16:30 Temperature 99.3 F Pulse Rate 81 80 75 Respiratory Rate 18 Blood Pressure 120/56 L 141/79 H Pulse Oximetry 96 94 93 04/02/21 16:31 Temperature Pulse Rate 79 Respiratory Rate Blood Pressure 131/60 Pulse Oximetry 95 MDM - Neuro Symptoms/Deficit Lab Data Result diagrams: 04/02/21 14:22 04/02/21 14:22 Labs: Lab Results 04/02/21 04/02/21 04/02/21 Range/Units 14:22 14:22 14:22 WBC 7.4 (4.5-11.0) X10^3/uL RBC 3.45 L (4.0-5.2) X10^6/uL Hgb 10.1 L (12.0-16.0) g/dL Hct 31.4 L (36-46) % MCV 90.9 (80-100) fL MCH 29.3 (26-34) PG MCHC 32.3 (30-36) % RDW 15.2 H (11.6-14.8) % Plt Count 268 (150-400) X10^3/uL Neut % (Auto) 72.2 (50-75) % Lymph % (Auto) 13.4 L (25-40) % [place] % (Auto) 11.2 (3-14) % Eos % (Auto) 2.5 (2-4) % Baso % (Auto) 0.7 (0-2) % Neut # (Auto) 5300 (3828-2317) /uL Lymph # (Auto) 1000 L (7271-4997) /uL [place] # (Auto) 800 (0-900) /uL Eos # (Auto) 200 (0-450) /uL Baso # (Auto) 100 (0-100) /uL PT 18.9 H (10.1-12.7) SECONDS INR 1.7 H (0.9-1.3) APTT 43 H (26.4-36.2) SECONDS Sodium (137-145) mmol/L Potassium (3.4-5.1) mmol/L Chloride (98-107) mmol/L Carbon Dioxide (22-32) mmol/L BUN (7-17) mg/dL Creatinine (0.52-1.04) mg/dL Estimated GFR (>60) mL/min BUN/Creatinine Ratio (6-22) Glucose (80-110) mg/dL Calcium (8.4-10.2) mg/dL Magnesium (1.6-2.3) mg/dL Total Creatine Kinase 58 (30-135) U/L CK-MB (CK-2) TNP CK-MB (CK-2) Rel Index TNP Troponin I < 0.012 (0.01-0.034) ng/mL NT-Pro-B Natriuret Pep (<450) pg/mL Procalcitonin (<0.5) ng/mL TSH (0.47-4.68) uIU/mL U Opiates 300ng/mL cut (Negative) Ur Oxycodone Screen (Negative) Urine Methadone Screen (Negative) Ur Barbiturates Screen (Negative) U Tricyclic Antidepress (Negative) Ur Phencyclidine Scrn (Negative) Ur Amphetamines Screen (Negative) U Methamphetamines Scrn (Negative) Ur MDMA Scrn (Ecstasy) (Negative) U Benzodiazepines Scrn (Negative) Urine Cocaine Screen (Negative) U Marijuana (THC) Screen (Negative) SARS-CoV-2 (PCR) (Negative) 04/02/21 04/02/21 04/02/21 Range/Units 14:22 14:22 14:22 WBC (4.5-11.0) X10^3/uL RBC (4.0-5.2) X10^6/uL Hgb (12.0-16.0) g/dL Hct (36-46) % MCV (80-100) fL MCH (26-34) PG MCHC (30-36) % RDW (11.6-14.8) % Plt Count (150-400) X10^3/uL Neut % (Auto) (50-75) % Lymph % (Auto) (25-40) % [place] % (Auto) (3-14) % Eos % (Auto) (2-4) % Baso % (Auto) (0-2) % Neut # (Auto) (0876-6126) /uL Lymph # (Auto) (0371-9645) /uL [place] # (Auto) (0-900) /uL Eos # (Auto) (0-450) /uL Baso # (Auto) (0-100) /uL PT (10.1-12.7) SECONDS INR (0.9-1.3) APTT (26.4-36.2) SECONDS Sodium 136 L (137-145) mmol/L Potassium 4.7 D (3.4-5.1) mmol/L Chloride 98 (98-107) mmol/L Carbon Dioxide 30 (22-32) mmol/L BUN 17 (7-17) mg/dL Creatinine 0.77 (0.52-1.04) mg/dL Estimated GFR > 60.0 (>60) mL/min BUN/Creatinine Ratio 22.1 H (6-22) Glucose 116 H (80-110) mg/dL Calcium 9.3 (8.4-10.2) mg/dL Magnesium 2.2 (1.6-2.3) mg/dL Total Creatine Kinase (30-135) U/L CK-MB (CK-2) CK-MB (CK-2) Rel Index Troponin I (0.01-0.034) ng/mL NT-Pro-B Natriuret Pep 236 (<450) pg/mL Procalcitonin 0.05 (<0.5) ng/mL TSH (0.47-4.68) uIU/mL U Opiates 300ng/mL cut (Negative) Ur Oxycodone Screen (Negative) Urine Methadone Screen (Negative) Ur Barbiturates Screen (Negative) U Tricyclic Antidepress (Negative) Ur Phencyclidine Scrn (Negative) Ur Amphetamines Screen (Negative) U Methamphetamines Scrn (Negative) Ur MDMA Scrn (Ecstasy) (Negative) U Benzodiazepines Scrn (Negative) Urine Cocaine Screen (Negative) U Marijuana (THC) Screen (Negative) SARS-CoV-2 (PCR) (Negative) 04/02/21 04/02/21 04/02/21 Range/Units 14:22 15:11 15:55 WBC (4.5-11.0) X10^3/uL RBC (4.0-5.2) X10^6/uL Hgb (12.0-16.0) g/dL Hct (36-46) % MCV (80-100) fL MCH (26-34) PG MCHC (30-36) % RDW (11.6-14.8) % Plt Count (150-400) X10^3/uL Neut % (Auto) (50-75) % Lymph % (Auto) (25-40) % [place] % (Auto) (3-14) % Eos % (Auto) (2-4) % Baso % (Auto) (0-2) % Neut # (Auto) (1238-3732) /uL Lymph # (Auto) (1264-0523) /uL [place] # (Auto) (0-900) /uL Eos # (Auto) (0-450) /uL Baso # (Auto) (0-100) /uL PT (10.1-12.7) SECONDS INR (0.9-1.3) APTT (26.4-36.2) SECONDS Sodium (137-145) mmol/L Potassium (3.4-5.1) mmol/L Chloride (98-107) mmol/L Carbon Dioxide (22-32) mmol/L BUN (7-17) mg/dL Creatinine (0.52-1.04) mg/dL Estimated GFR (>60) mL/min BUN/Creatinine Ratio (6-22) Glucose (80-110) mg/dL Calcium (8.4-10.2) mg/dL Magnesium (1.6-2.3) mg/dL Total Creatine Kinase (30-135) U/L CK-MB (CK-2) CK-MB (CK-2) Rel Index Troponin I (0.01-0.034) ng/mL NT-Pro-B Natriuret Pep (<450) pg/mL Procalcitonin (<0.5) ng/mL TSH 2.11 (0.47-4.68) uIU/mL U Opiates 300ng/mL cut Positive H (Negative) Ur Oxycodone Screen Negative (Negative) Urine Methadone Screen Negative (Negative) Ur Barbiturates Screen Negative (Negative) U Tricyclic Antidepress Negative (Negative) Ur Phencyclidine Scrn Negative (Negative) Ur Amphetamines Screen Negative (Negative) U Methamphetamines Scrn Negative (Negative) Ur MDMA Scrn (Ecstasy) Negative (Negative) U Benzodiazepines Scrn Positive H (Negative) Urine Cocaine Screen Negative (Negative) U Marijuana (THC) Screen Negative (Negative) SARS-CoV-2 (PCR) Negative (Negative) Urine Dip Bedside Urine Glucose Negative Bedside Urine Bilirubin - Negative Bedside Urine Ketone - Negative Urine Specific [place] 1.015 Bedside Urine Occult Blood - Negative Bedside Urine pH 7 Bedside Urine Protein - Negative Bedside Urine Urobilinogen - Negative Bedside Urine Nitrite - Negative Bedside Urine Leukocytes - Negative Esterase Imaging Data CT scan - head: Radiologist's Impression: Elba Hicks Amanda 75 F [address] [id number] Scan ReportSigned Patient: Elba iHcks LMR#: [id number]: 4Acct:[id number]/Sex: 75 / FDate of Service: 04/02/21Loc: EDAccession Number: [id number] Procedure: CT head/brain wo con Ordering Provider: Celi Singh D.O. PROCEDURE: CT HEAD/BRAIN WO CON INDICATIONS: altered mental status, word finding problems. unknown onset TECHNIQUE: Noncontrast 4.5 mm thick angled axial sections acquired from the foramen magnum to the vertex, with coronal and sagittal reformats. For radiation dose reduction, the following was used: automated exposure control, adjustment of mA and/or kV according to patient size. COMPARISON: None. FINDINGS: Image quality: Excellent. CSF spaces: Basal cisterns are patent. No extra-axial fluid collections. The ventricles are symmetric in size and shape. Brain: No intracranial bleeds or masses. There is cerebral volume loss for age, with resultant ventricular and sulcal prominence. There are periventricular and deep white matter chronic small vessel ischemic changes. There is intracranial internal carotid artery atherosclerosis. Skull and face: Calvarium and visualized facial bones appear intact, without suspicious lesions. Sinuses: Visualized sinuses and mastoids are clear. IMPRESSION: 1. Age related volume loss and small vessel ischemic change. 2. No evidence acute stroke, hemorrhage, or mass. Dictated by: Franklin Mckeon M.D. on 04/02/2021 at 14:54 Approved by: Franklin Mckeon M.D. on 04/02/2021 at 14:55 CTA - brain/neck: Radiologist's Impression: [address] [id number] Scan ReportSigned Patient: Elba Hicks LMR#: [id number]: 4Acct:[id number]/Sex: 75 / FDate of Service: 04/02/21Loc: EDAccession Number: [id number] Procedure: CT angio head and neck Ordering Provider: Celi Singh D.O. PROCEDURE: CT ANGIO HEAD AND NECK INDICATIONS: stroke TECHNIQUE: After the administration of intravenous contrast, 1 mm thick sections acquired from the aortic arch through the [place]. Post-contrast 4.5 mm thick sections then re-acquired from the foramen magnum to the vertex. 3-dimensional nplnhff-gfgplqtjd-pwqsuzpuon (MIP) and/or volume rendering reformats were acquired of the central intracranial vasculature and neck separately. COMPARISON: [facility], CT, CT HEAD/BRAIN WO CON, 04/02/2021, 14:29. FINDINGS: Image quality: Excellent. BRAIN: CSF spaces: Ventricles are normal in size and shape. Basal cisterns are patent. No extra-axial fluid collections. Brain: No midline shift. No intracranial bleeds or masses. [place]-white matter interface appears intact. Age-related volume loss and small vessel ischemic change. Skull and face: Calvarium and facial bones appear intact, without suspicious lesions. Orbits appear normal. Sinuses: Sinuses and mastoids are clear. HEAD CT ANGIOGRAPHY: Anterior circulation: Intracranial internal carotid arteries are normal in size and flow. The flow within the paired anterior cerebral arteries is normal and symmetric. The flow within the middle cerebral arteries is normal and symmetric. The anterior communicating artery is seen. No aneurysms are seen. Posterior circulation: The distal right vertebral artery is dominant. The distal left vertebral artery is diminutive, the V4 segment. They join to form a normal appearing basilar artery. Flow within the posterior cerebral arteries is normal and symmetric. No aneurysms are seen. NECK CT ANGIOGRAPHY: Carotid system: The great vessels demonstrate a conventional anatomy as they arise from the aortic arch. The origins of the common carotid arteries appear patent. The common carotid arteries demonstrate normal caliber and courses. The bifurcation regions are both widely patent. Right internal carotid artery is widely patent. Mild proximal left internal carotid artery disease, without flow-limiting stenosis.. Posterior circulation: The origins of the vertebral arteries both appear widely patent. The more superior extracranial portions of both vertebral arteries also demonstrate normal courses and calibers. They join to form a normal appearing basilar artery. Soft tissues: Visualized neck soft tissues demonstrate no suspicious abnormalities. Bones: No suspicious bony lesions. Visualized cervical spine appears normally aligned. IMPRESSION: 1. Age-related volume loss and small vessel ischemic change. 2. No evidence acute stroke, hemorrhage, or mass. 3. Diminutive distal left vertebral artery, likely variant anatomy. CTA head otherwise unremarkable without stenosis, aneurysm, occlusion, or focal filling defect. 4. Mild proximal left internal carotid artery disease. Otherwise unremarkable CTA neck. Comment: Findings were discussed with Dr. Singh on 04/02/2021 at 1507 hours Any quantitative measurements of stenosis were performed using NASCET criteria. Dictated by: Franklin Mckeon M.D. on 04/02/2021 at 15:00 Approved by: Franklin Mckeon M.D. on 04/02/2021 at 15:08 ECG Data Attestation: I personally reviewed and interpreted this ECG as follows: Interpretation: Sinus rhythm, first-degree AV block. Rate 80 1p are 228, QRS [address]TC [address] No acute [address] changes. MDM Narrative Medical decision making narrative: This is a 75-year-old female with stroke-like symptoms that her approximately 1-2 days all in timeline. Patient does have some expressive aphasia. She does seem to have some right lower extremity weakness. Unable to fully evaluate her with NIH scale secondary to debility from her chronic medical issues. CT and CT angiography are negative for acute change. Patient is far outside the window for tPA or even code IR. There is no clear cause is from a laboratory perspective. COVID is negative. We did attempt to get MRI but patient's habitus did not allow for this. I spoke with our hospitalist who accepts for observation, telemetry, risk factor modification and to evaluate if patient needs to have her anticoagulation changed if she has failed on Eliquis. Stroke Core Measures Exclusion Criteria TPA in CVA: Symptom Onset >3 or 4.5 Hours (1-2 days.) Discharge Plan Departure Patient Disposition: Admitted as Observation Clinical Impression: Cerebrovascular accident Admit Date/Time: 04/02/21 17:10 Admit Provider: Minerva Delgado
[2021-04-02] MEDS: SODIUM CHLORIDE 0.9% 1,000 ML 150 ML IV (15:31)
[2021-04-02 15:34] LABS: UR Morphine/Opiate cutoff 300 Positive (Negative); Ur Creatinine Normal (Normal); Ur Specific Gravity Normal (Normal); Urine Amphetamines Negative (Negative); Urine Barbiturates Negative (Negative); Urine Benzodiazepines Positive (Negative); Urine Cocaine Negative (Negative); Urine MDMA Negative (Negative); Urine Methadone Negative (Negative); Urine Methamphetamines Negative (Negative); Urine Oxycodone Negative (Negative); Urine Phencyclidine Negative (Negative); Urine Tetrahydrocannabinol Negative (Negative); Urine Tricyclic Antidepressant Negative (Negative); Urine pH Normal (Normal)
[2021-04-02 16:01] VITALS: BP 141/79; PULSE 80; O2SAT 94
[2021-04-02 16:06] LABS: NT-proBNP (BNP-Adult 18+) 236 pg/mL (<450)
[2021-04-02 16:14] LABS: Procalcitonin 0.05 ng/mL (<0.5)
[2021-04-02 16:30] VITALS: PULSE 75; O2SAT 93
[2021-04-02 16:31] VITALS: BP 131/60; PULSE 79; O2SAT 95
[2021-04-02] MEDS: ASPIRIN 81 MG CHEW TAB 324 MG PO (16:35)
[2021-04-02 16:57] LABS: COVID19 - ADMIT (NP swab/PCR) Negative (Negative)
--- NOTE | 2021-04-02 18:12 | PC.NURSE ---
unable to get an [facility] on pt.. aware.
[2021-04-02 19:03] VITALS: BP 132/69; PULSE 78; RESP 16; TEMP 36.9; O2SAT 98
[2021-04-02 19:49] LABS: Magnesium 2.2 mg/dL (1.6-2.3)
--- NOTE | 2021-04-02 20:05 | P.HP_ITS ---
History of Present Illness History of Present Illness Date Patient Seen: 04/02/21 Time Patient Seen: 19:13 Chief complaint: Aletred mental status Narrative: Patient is a 75-year-old female Elba Hicks who resides at [facility], and was brought in today via EMS for mental status change, speech difficulties and word-finding that the patient notes started a few days ago. She also experienced increased difficulty and weakness while transferring from her bed to wheelchair, the patient has a skin wound on the left lower leg that she notes developed approximately 1 week ago but is not related to her admit today. The patient reports that she had a nontraumatic slide off the side of her bed onto the floor approximately 1 week ago but did not hit her head or have loss of consciousness. She has suffered from several UTIs over the past several months. The patient is morbidly obese and has profound osteoarthritis in knees and shoulders and hips and is predominantly bed-bound or in a wheelchair. During admit interview patient continues to struggle with word finding, appears slightly dazed with an inability to complete a full thought/full sentence. NIH:1 (best language). Patient did struggle to complete the physical testing of the NIH, she advised that she is physically at her normal baseline, this is supported by her weight and lack of physical activity. Patient denies chest pain, shortness of breath, numbness, weakness, tingling, difficulty swallowing, headache, changes in vision, changes in bowel or bladder, denies urinary symptoms, hematuria, melena, fever, body aches, chills, abdominal pain, nausea, vomiting, diarrhea, recent illness, injury, or trauma. Patient has a history of atrial fibrillation and is on Eliquis, hypertension, asthma, insomnia, major depressive disorder, iron deficiency anemia, abnormal an unstable gait/mobility with frequent falls, lymphedema, hypomagnesia, GERD, morbid obesity, and osteoarthritis. Patient's vitals upon admit slightly febrile temp 99.3?, BP 131/60, HR 79, RR 16, O2 saturation 95% on room air. Patient's CBC demonstrated her chronic iron deficiency anemia HGB stable at 10.1, HCT 31.4. Patient's chemistries were predominantly unremarkable with a sodium of 136, glucose 116, troponin, proBNP, and procalcitonin all within normal limits. NIH score on admit:1. Head neck CTA and head CT were both negative for stroke. Unable to perform MR due to patient's BMI of 49.2. Patient admitted for TIA versus stroke rule out. Patient History Medical History Arthritis Asthma Atrial fibrillation Essential hypertension Frequent falls GERD (gastroesophageal reflux disease) Insomnia Iron deficiency anemia Lymphedema Major depressive disorder, recurrent episode with anxious distress Morbid obesity with BMI of 45.0-49.9, adult Osteoarthritis Unstable gait Surgical History History of adjustable gastric banding History of bilateral hip replacements History of gastric bypass Family & Social History Family History Mother Stroke Dementia Father Autoimmune disease Safety & Behavioral: Feels Safe in Current Yes, patient resides at [facility], patient is predominantly bedbound or wheelchair, and requires assistance with transfers. Environment Been Physically Hurt or No Threatened By a Person Tobacco & Substance use: Smoking Status Former smoker alcohol intake frequency 0-2 drinks per day Substance Use Type does not use Meds Home Medications and Allergies Home Medications Medication Instructions Recorded Confirmed Type albuterol sulfate 90 mcg/actuation 2 inh INHALATION Q4HR PRN 04/02/21 04/02/21 History aerosol inhaler apixaban 5 mg tablet (Eliquis) 5 mg PO BID 04/02/21 04/02/21 History bisacodyl 10 mg rectal suppository 10 mg ND DAILY 04/02/21 04/02/21 History bisacodyl 5 mg tablet 10 mg PO DAILY PRN 04/02/21 04/02/21 History cholecalciferol (vitamin D3) 25 25 mcg PO DAILY 04/02/21 04/02/21 History mcg (1,000 unit) tablet (Vitamin D3) citalopram 20 mg tablet 20 mg PO DAILY 04/02/21 04/02/21 History cyanocobalamin (vitamin B-12) 1,000 mcg PO DAILY 04/02/21 04/02/21 History 1,000 mcg tablet (Vitamin B-12) diclofenac sodium 1 % topical gel 4 g TOPICAL BID 04/02/21 04/02/21 History fexofenadine 60 mg tablet 60 mg PO BID PRN 04/02/21 04/02/21 History fluticasone furoate 200 1 inh INHALATION DAILY 04/02/21 04/02/21 History mcg/actuation blister powder for inhalation (Arnuity Ellipta) furosemide 80 mg tablet 80 mg PO DAILY 04/02/21 04/02/21 History hydrocodone 5 mg-acetaminophen 325 1 tab PO Q4H PRN 04/02/21 04/02/21 History mg tablet hydrocodone 5 mg-acetaminophen 325 2 tab PO BEDTIME 04/02/21 04/02/21 History mg tablet hydrocortisone 1 % topical cream 1 applic TOPICAL Q6H PRN 04/02/21 04/02/21 History lorazepam 0.5 mg tablet 0.5 - 1 mg Q6H PRN 04/02/21 04/02/21 History magnesium hydroxide 400 mg/5 mL 400 mg PO DAILY PRN 04/02/21 04/02/21 History oral suspension (Milk of Magnesia) magnesium oxide 400 mg PO BID 04/02/21 04/02/21 History melatonin 3 mg tablet 6 mg PO BEDTIME 04/02/21 04/02/21 History metoprolol succinate 25 mg 25 mg PO DAILY 04/02/21 04/02/21 History tablet,extended release 24 hr montelukast 10 mg tablet 10 mg PO BEDTIME 04/02/21 04/02/21 History nystatin 100,000 unit/gram topical 1 applic TOPICAL Q6H PRN 04/02/21 04/02/21 History powder omeprazole 40 mg capsule,delayed 40 mg PO DAILY 04/02/21 04/02/21 History release polyethylene glycol 3350 17 gram 17 g PO DAILY PRN 04/02/21 04/02/21 History oral powder packet potassium chloride 20 mEq 20 meq PO DAILY 04/02/21 04/02/21 History tablet,extended release(part/cryst) vit no.95-ferrous 1 tab PO DAILY 04/02/21 04/02/21 History fumarate 28 mg-folic acid 800 mcg tablet () sennosides 8.6 mg tablet (senna) 8.6 mg PO DAILY PRN 04/02/21 04/02/21 History Allergies Allergy/AdvReac Type Severity Reaction Status Date / Time codeine Allergy Verified 04/02/21 14:18 diphenhydramine Allergy Verified 04/02/21 14:18 [From Benadryl Allergy] Penicillins Allergy Verified 04/02/21 14:18 Review of Systems Review of Systems Narrative: All 12 point systems reviewed with the patient and are negative except otherwise documented. Exam Vital Signs (past 8 hours): - 04/02/21 14:18 04/02/21 16:01 04/02/21 16:30 Temperature 99.3 F Pulse Rate 81 80 75 Respiratory Rate 18 Blood Pressure 120/56 L 141/79 H Pulse Oximetry 96 94 93 04/02/21 16:31 04/02/21 19:03 Temperature 98.4 F Pulse Rate 79 78 Respiratory Rate 16 Blood Pressure 131/60 132/69 Pulse Oximetry 95 98 Oxygen Delivery Method Room Air Oxygen Flow Rate 0 Narrative Exam Narrative: General: Patient is a opal morbidly obese female, well-developed, well-nourished in no distress at this time. HEENT: Normocephalic, atraumatic, extraocular muscles intact, oral pharynx is clear and mucous membranes are moist. Neck is supple and symmetric, trachea is midline, no adenopathy, no thyroid enlargement, nontender, no masses palpated. Negative for JVD Chest: Normal AP diameter and contour without kyphoscoliosis, no nasal flaring, retractions, or tachypneic labored Lungs: Auscultation of all lung lynn are clear without adventitious sounds, wheezes, rhonchi, or rales. Cardio: S1 & S2 with regular rate and rhythm without rubs, or gallops, no carotid bruit, no cardiac pulsations present, +3 systolic whooshing murmur heard over right 2nd/3rd intercostal. Abdomen: Soft nontender. Bowel sounds are present in all 4 quadrants without guarding or rebound, no CVA tenderness. Musculoskeletal: Muscle strength and tone are equal below normal, but are base line for the patient, no deformity, crepitus, effusions, cyanosis, or clubbing present. Positive nonpitting equal bilateral edema to lower extremities. Decreased range of motion due to weight and muscle weakness (baseline) intact radial and pedal pulses are normal. Skin: Warm dry and intact, noted superficial skin tear with minimal bloody drainage to the left lower anterior calf, without erythema or tenderness. Neuro: Alert and orientated x3, strength is +5/5 in all extremities, sensation to touch intact, no gross deficits noted of cranial nerves. Psych: Patient has a well-kept appearance, appropriate affect, mental status attitude thought context and judgment are appropriate for age. Objective Labs Result Diagrams: 04/02/21 14:22 04/02/21 14:22 Labs: Laboratory Results - last 24 hr 04/02/21 04/02/21 04/02/21 14:22 14:22 14:22 WBC 7.4 RBC 3.45 L Hgb 10.1 L Hct 31.4 L MCV 90.9 MCH 29.3 MCHC 32.3 RDW 15.2 H Plt Count 268 Neut % (Auto) 72.2 Lymph % (Auto) 13.4 L [place] % (Auto) 11.2 Eos % (Auto) 2.5 Baso % (Auto) 0.7 Neut # (Auto) 5300 Lymph # (Auto) 1000 L [place] # (Auto) 800 Eos # (Auto) 200 Baso # (Auto) 100 PT 18.9 H INR 1.7 H APTT 43 H Sodium Potassium Chloride Carbon Dioxide BUN Creatinine Estimated GFR BUN/Creatinine Ratio Glucose Calcium Magnesium Total Creatine Kinase 58 CK-MB (CK-2) TNP CK-MB (CK-2) Rel Index TNP Troponin I < 0.012 NT-Pro-B Natriuret Pep Procalcitonin U Opiates 300ng/mL cut Ur Oxycodone Screen Urine Methadone Screen Ur Barbiturates Screen U Tricyclic Antidepress Ur Phencyclidine Scrn Ur Amphetamines Screen U Methamphetamines Scrn Ur MDMA Scrn (Ecstasy) U Benzodiazepines Scrn Urine Cocaine Screen U Marijuana (THC) Screen SARS-CoV-2 (PCR) 04/02/21 04/02/21 04/02/21 14:22 14:22 14:22 WBC RBC Hgb Hct MCV MCH MCHC RDW Plt Count Neut % (Auto) Lymph % (Auto) [place] % (Auto) Eos % (Auto) Baso % (Auto) Neut # (Auto) Lymph # (Auto) [place] # (Auto) Eos # (Auto) Baso # (Auto) PT INR APTT Sodium 136 L Potassium 4.7 D Chloride 98 Carbon Dioxide 30 BUN 17 Creatinine 0.77 Estimated GFR > 60.0 BUN/Creatinine Ratio 22.1 H Glucose 116 H Calcium 9.3 Magnesium 2.2 Total Creatine Kinase CK-MB (CK-2) CK-MB (CK-2) Rel Index Troponin I NT-Pro-B Natriuret Pep 236 Procalcitonin 0.05 U Opiates 300ng/mL cut Ur Oxycodone Screen Urine Methadone Screen Ur Barbiturates Screen U Tricyclic Antidepress Ur Phencyclidine Scrn Ur Amphetamines Screen U Methamphetamines Scrn Ur MDMA Scrn (Ecstasy) U Benzodiazepines Scrn Urine Cocaine Screen U Marijuana (THC) Screen SARS-CoV-2 (PCR) 04/02/21 04/02/21 15:11 15:55 WBC RBC Hgb Hct MCV MCH MCHC RDW Plt Count Neut % (Auto) Lymph % (Auto) [place] % (Auto) Eos % (Auto) Baso % (Auto) Neut # (Auto) Lymph # (Auto) [place] # (Auto) Eos # (Auto) Baso # (Auto) PT INR APTT Sodium Potassium Chloride Carbon Dioxide BUN Creatinine Estimated GFR BUN/Creatinine Ratio Glucose Calcium Magnesium Total Creatine Kinase CK-MB (CK-2) CK-MB (CK-2) Rel Index Troponin I NT-Pro-B Natriuret Pep Procalcitonin U Opiates 300ng/mL cut Positive H Ur Oxycodone Screen Negative Urine Methadone Screen Negative Ur Barbiturates Screen Negative U Tricyclic Antidepress Negative Ur Phencyclidine Scrn Negative Ur Amphetamines Screen Negative U Methamphetamines Scrn Negative Ur MDMA Scrn (Ecstasy) Negative U Benzodiazepines Scrn Positive H Urine Cocaine Screen Negative U Marijuana (THC) Screen Negative SARS-CoV-2 (PCR) Negative Assessment & Plan Assessment & Plan narrative: Patient is a 75-year-old female Elba Hicks has been admitted for neurological deficit (altered mental status,word finding difficulties) TIA versus stroke rule out. She has a history of atrial fibrillation and is on Eliquis, hypertension, asthma, insomnia, major depressive disorder, iron deficiency anemia, abnormal an unstable gait/mobility with frequent falls, lymphedema, hypomagnesia, GERD, morbid obesity, and osteoarthritis. 1. Neurological deficit, (altered mental status, word finding difficulties), TIA versus stroke rule out, acute, present on admission -troponin, proBNP, and procalcitonin all within normal limits. NIH score on admit:1. Head neck CTA and head CT were both negative for stroke. Unable to perform MR due to patient's BMI of 49.2. temp 99.3?, BP 131/60, HR 79, RR 16, O2 saturation 95% on room air. EKG: Sinus rhythm, ventricular rate 81 with first-degree AV block. -I found the patient to be more mildly cognitively confused than neurological deficit, and she demonstrated no slurred speech. She has a low-grade fever and recent history of frequent UTIs. While I cannot entirely rule out stroke without an MR, more likely TIA. Head CT was negative. Possible encephalopathy due to UTI? Confounding factor may also be the amount of Crystal the patient takes on a daily basis for her chronic pain. I am holding her Crystal at this time. Monitor patient overnight. U/A ordered, PT evaluation tomorrow. Patient unable to complete MR due to weight incompatibility. -differential diagnosis TIA, ischemic stroke, intracranial hemorrhage, subdural hematoma, epidural hematoma, seizure, brain tumor, migraine, vertigo, hypoglycemia, Mireya Easton syndrome, multiple sclerosis, aortic dissection. -Vital signs q.4 hours, neuro checks q.2 hours for 1st 24 hours then q.4 hours, notify provider for temp greater than 38 C, , heart rate >100 -treat systolic blood pressure>220 or diastolic blood pressure> 120 -activity bed rest until initial physical therapy assessment is performed, then mobilize YVETTE as guided by Physical therapy, strict fall precautions. -supplemental O2 to maintain> 94%, check capillary blood glucose q.6 hours. -Diet NPO until swallow evaluation is done, then heart healthy if cleared -fluids: -Medications: Aspirin 325 mg p.o. q.day within 48 hours, patient already on eliquis, atorvastatin 80 mg q.day. -labs CBC, BNP, PT/PTT/INR, proBNP, TSH, troponins,Lipid panel -ordered straight cath as patient is incontinent, UA with culture 2. Atrial fibrillation, with chronic Eliquis use, essential hypertension, chronic, present on admission -telemed, continue patient's Eliquis, metoprolol 3. Asthma, chronic, present on admission -continue patient's albuterol 4. Major depressive disorder with anxiety, chronic, present on admission -patient denies suicidal ideation, continue patient's Ativan and citalopram 5. Osteoarthritis of the hips, knees, shoulders, chronic, present on admission -Continue Crystal after 24 hr evaluation (r/o oversedation), Voltaren 6. Bilateral lower extremity lymphedema, acute on chronic, present on admission -SCDs continue patient's Lasix, magnesium, potassium 7. GERD, chronic, present on admission -Continue patient's omeprazole 8. Insomnia, chronic, present on admission -Continue patient's melatonin at bedtime 9. Morbid obesity as evidence by BMI 49.2 kg, acute on chronic, present on admission -consideration will be given for dietary counseling Code status: Limited code no intubation, CPR, or cardioversion Surrogate decision maker: Todd WATSON PCR: Negative DVT/VTE prophylaxis: SCDs only, patient on Eliquis Estimated length of stay: Less than 2 midnights I have utilized all available immediate resources to obtain, update, or review the patient's current medications. I confirmed that the patient's advanced care plan is present, Code status is documented and/or surrogate decision maker is listed in the patient's medical record. Scores GCS Gilman coma scale eye opening: Spontaneous Jessi coma scale verbal response: Orientated Gilman coma scale motor response: Obey commands Gilman coma scale total score: 15 NIHSS Level of Conciousness: Alert, keenly responsive Ask month/age: Answers both questions correctly. Open/close eyes, close hand: Performs both tasks correctly Best gaze horizontal: Normal Visual lynn: No visual loss Facial palsy: Normal symetrical movement Left arm drift: No drift for full 10 sec Right arm drift: No drift for full 10 sec Left leg drift: No drift for full 5 sec (pt unable to lift legs off bed,she does make an effort, this is her base line.) Right leg drift: No drift for full 5 sec (see above note) Limb ataxia: Absent Sensory on face/arms/legs: Normal, no sensory loss Best language: Mild to moderate, slurs some words Dysarthria: Normal Extinction or inattention: No abnormality Total NIH Stroke scale score: 1 SOFA PaO2/FIO2: >=400 mmHg Platelets: >= 150 Bilirubin: < 1.2 mg/dL Hypotension: MAP >= 70 mmHg Gilman Coma Scale: 15 Renal: < 1.2 mg/dL SOFA Score: 0 Wells' Criteria for PE Clinical signs and symptoms of DVT: No PE is #1 Dx or equally likely: No Heart rate > 100: No Immobilization at least 3 days or surg in previous 4 weeks: Yes History of PE or DVT: No Hemoptysis: No Malignancy w/Treatment within 6 months or palliative: No Wells' PE Score total: 1.5 Quality Stroke Symptom Onset Unknown: Yes MIPS - Admit I confirm the patient?s Advance Care Plan is present, Code status is documented, Surrogate decision maker is in patient?s record [If Yes, STOP here]: Yes
[2021-04-02 20:19] LABS: Thyroid Stimulating Hormone 2.11 uIU/mL (0.47-4.68)
[2021-04-02] MEDS: APIXABAN 5 MG TABLET PO (20:59)
[2021-04-02] MEDS: ATORVASTATIN 20 MG TABLET 80 MG PO (20:59)
[2021-04-02] MEDS: SENNOSIDES 8.6 MG TABLET 17.2 MG PO (21:00)
[2021-04-02] MEDS: MELATONIN 3 MG TABLET 6 MG PO (21:00)
[2021-04-02] MEDS: HYDROCODONE/ACET 5/325 TABLET 2 TAB PO (21:00)
[2021-04-02] MEDS: ONDANSETRON 4 MG/2 ML INJ IV (21:01)
[2021-04-02] MEDS: MAG HYDROX/ALUM/SIMETH 30 ML UDC PO (21:01)
[2021-04-02] MEDS: MAGNESIUM OXIDE 400 MG TABLET PO (21:12)
[2021-04-02 21:37] VITALS: BMI 49.1
[2021-04-02] MEDS: ACETAMINOPHEN 325 MG TABLET 650 MG PO (21:56)
--- NOTE | 2021-04-02 22:54 | PC.ADMIT ---
[address] Admission Note: Patient arrived to floor at approximately 1845. A&O, VSS, patient back to cognitive baseline. NIH 2, telemetry placed. No neuro changes through out shift. Swallow screen done and passed and eating without issue. Patient was given written information regarding hospital policies, unit procedures and contact persons. Will continue to monitor. Patient's smoking status: Former smoker. Vital Signs - 8 hr 04/02/21 16:01 04/02/21 16:30 04/02/21 16:31 Temperature Pulse Rate 80 75 79 Respiratory Rate Blood Pressure 141/79 H 131/60 Pulse Oximetry 94 93 95 04/02/21 19:03 Temperature 98.4 F Pulse Rate 78 Respiratory Rate 16 Blood Pressure 132/69 Pulse Oximetry 98
[2021-04-02 23:03] VITALS: BP 112/62; PULSE 77; RESP 16; TEMP 36.6
[2021-04-02 23:58] LABS: Bacteria Urine None Seen; RBC Urine None Seen (0-5/HPF); WBC Urine None Seen (0-5/HPF)
[2021-04-02 23:59] LABS: Appearance Urine UA CLEAR; Bilirubin Urine UA NEGATIVE (NEGATIVE); Color Urine UA YELLOW; Glucose Urine UA NEGATIVE (Negative); Ketones Urine UA NEGATIVE (NEGATIVE); Leukocyte Esterase Urine UA NEGATIVE (NEGATIVE); Nitrite Urine UA NEGATIVE (Negative); Occult Blood Urine UA NEGATIVE (Negative); Protein Urine UA NEGATIVE (Negative); Urobilinogen Urine UA 0.2 E.U./dL (0.2)
[2021-04-03] VITALS (8 sets, daily range): BP systolic 125–135; BP diastolic 75–83; PULSE 77–85; RESP 16; TEMP 36.4; O2SAT 94–96
[2021-04-03 00:39] LABS: Culture Indicated Urine Cult Not Indicated
[2021-04-03] MEDS: LORazepam 0.5 MG TABLET 1 MG PO (00:47)
[2021-04-03] MEDS: ACETAMINOPHEN 325 MG TABLET 650 MG PO (01:53)
--- NOTE | 2021-04-03 02:53 | PC.NURSE ---
Pt. requested to off her back. Sitting at the edge of her bed, chair alarm activated. Been C/O pain medicated with 1mg. of Lorazepam Po & 650 mg. of Tylenol PO. Reported she takes Vicodin every 4 hrs. PRN for her pain. LUC Hunt notified order received to administer 1 tab. Vicodin x1 now. Awaiting for night pharmacy to verify the order.
[2021-04-03] MEDS: HYDROCODONE/ACET 10/325 TABLET 1 TAB PO (03:02)
[2021-04-03] MEDS: PANTOPRAZOLE DR 40 MG TABLET PO (05:58)
[2021-04-03 06:19] LABS: Add Manual Diff / Slide Review NO; Basophils Absolute Auto 100 /uL (0-100); Basophils Percent Auto 1.1 % (0-2); Eosinophils Absolute Auto 200 /uL (0-450); Hemoglobin 9.1 g/dL (12.0-16.0); Lymphocytes Absolute Auto 900 /uL (1100-4500); Mean Corpuscular HGB Conc 32.6 % (30-36); Mean Corpuscular Hemoglobin 29.7 PG (26-34); Mean Corpuscular Volume 91.3 fL (80-100); Monocytes Absolute Auto 600 /uL (0-900); Monocytes Percent Auto 10.3 % (3-14); Neutrophils Absolute Auto 4300 /uL (1500-7000); Neutrophils Percent Auto 70.6 % (50-75); Platelet Count 232 X10^3/uL (150-400); Red Blood Cell Count 3.06 X10^6/uL (4.0-5.2); Red Cell Distribution Width 15.1 % (11.6-14.8); White Blood Cell Count 6.1 X10^3/uL (4.5-11.0)
[2021-04-03 06:21] LABS: INR 1.7 (0.9-1.3)
[2021-04-03 06:24] LABS: PTT Partial Thromboplastin Tim 44 SECONDS (26.4-36.2)
[2021-04-03 06:25] LABS: BUN Creatinine Ratio 18.4 (6-22); Blood Urea Nitrogen 16 mg/dL (7-17); Calcium 8.8 mg/dL (8.4-10.2); Carbon Dioxide 34 mmol/L (22-32); Chloride 99 mmol/L (98-107); Cholesterol 105 mg/dL (140-199); Estimated Glomerular Filt Rate > 60.0 mL/min (>60); Glucose 91 mg/dL (80-110); HDL Cholesterol 37 mg/dL (40-60); HEMOLYSIS < 15 (0-50); LDL Cholesterol Calculated 50 mg/dL (<100); Potassium 3.7 mmol/L (3.4-5.1); Sodium 136 mmol/L (137-145); Triglycerides 91 mg/dL (35-150)
[2021-04-03 06:37] LABS: NT-proBNP (BNP-Adult 18+) 385 pg/mL (<450); Troponin I < 0.012 ng/mL (0.01-0.034)
--- NOTE | 2021-04-03 07:08 | DI.ECHO.S_ITS ---
[facility]---------+ [facility] +---------+ : : [address] [place] [address] : : : : [id number] : : : : Phone: [phone]+ Echocardiogram Report + + :Name: FLORENTIN DILLON Study Date: 04/03/2021 Height: 62 in : :[facility] ReadingLocation: Weight: 268 lb : : Gender: Female BSA: 2.2 m2 : :: 1945 Age: 75 yrs BP: 135/83 mmHg: :Reason For Study: STROKE : :Ordering Physician: KARLIE, : :DWIGHT Performed By: Raffaele Chavez : :Referring: DWIGHT ZIEGLER : + + Interpretation Summary The left ventricle is normal in size and wall thickness. Left ventricular systolic function is normal. The ejection fraction is estimated to be 60-65%. There are no focal wall motion abnormalities. Diastolic parameters suggest probable normal left ventricular diastolic function and normal filling pressures. The right ventricle is normal in size and function. The right ventricular systolic pressure is estimated to be at least 44 mmHg based on an estimated right atrial pressure of 8 mm Hg. Both atria are normal in size. There is mild aortic regurgitation. There is no other significant valvular heart disease. The aortic root is normal size. No cardiac source for embolic stroke. No signifincant changes since prior study. Procedure: A two-dimensional transthoracic echocardiogram with color flow and Doppler was performed. The study quality was technically adequate. Comparison is made with the echocardiogram of 10/26/2020. The patient was in sinus rhythm with heart rates between 70-76 bpm during the exam. Left Ventricle: The left ventricle is normal in size and wall thickness. Left ventricular systolic function is normal. The ejection fraction is estimated to be 60-65%. There are no focal wall motion abnormalities. Diastolic parameters suggest probable normal left ventricular diastolic function and normal filling pressures. Right Ventricle: The right ventricle is normal in size and function. Atria: Both atria are normal in size. There is no Doppler evidence for an interatrial shunt. Mitral Valve: The mitral valve is normal in structure and function. There is trace mitral regurgitation. Aortic Valve: The aortic valve is grossly normal. There is no hemodynamically significant valvular aortic stenosis. The calculated aortic valve area is 2.3 cm2. There is mild aortic regurgitation. Tricuspid Valve: The tricuspid valve is normal in structure and function. There is mild tricuspid regurgitation. The right ventricular systolic pressure is estimated to be at least 44 mmHg based on an estimated right atrial pressure of 8 mm Hg. Pulmonic Valve: The pulmonic valve is not well visualized. There is no other significant valvular heart disease. Great Vessels: The aortic root is normal size. The ascending aorta could not be visualized. The IVC is dilated (diameter is greater than 2.1 cm) yet it collapses greater than 50% with a sniff. This suggests a right atrial pressure of 8 mm Hg. Pericardium/ Pleura There is no pericardial effusion. There is no pleural effusion. MMode/2D Measurements & Calculations LVIDd: 4.5 cm LVOT diam: 2.2 cm LVIDs: 3.3 cm Ao root diam: 3.3 cm FS: 28.1 % IVSd: 1.0 cm LVPWd: 1.1 cm LV peoples. diameter/BSA (cm/m^2): 2.1 LV sys. diameter/BSA (cm/m^2): 1.5 LA A2 area: 15.5 cm2 RA long axis: 5.4 cm LA A4 area: 17.8 cm2 RA area: 15.8 cm2 LA length (vol): 5.3 cm RA vol: 39.2 ml LA vol: 44.2 ml RA : 18.1 ml/m2 LA vol index: 20.4 ml/m2 IVC diam: 2.6 cm TAPSE: 3.1 cm Doppler Measurements & Calculations Ao V2 max: 244.8 cm/sec LVOT Max Hammad: 155.0 cm/sec Ao V2 mean: 171.4 cm/sec LV V1 max P.6 mmHg Ao max P.0 mmHg LV V1 VTI: 32.6 cm Ao mean P.4 mmHg ANGEL(I,D): 2.2 cm2 Ao V2 VTI: 56.1 cm ANGEL(V,D): 2.4 cm2 sev ratio: 0.58 ANGEL indexed to BSA (cm^2/m^2): 1.0 MV E max hammad: 97.8 cm/sec TR max hammad: 298.4 cm/sec MV A max hammad: 104.0 cm/sec TR max P.6 mmHg MV E/A: 0.94 Med Peak E' Hammad: 6.1 cm/sec E/E' med: 15.9 Lat Peak E' Hammad: 13.0 cm/sec E/E' lat: 7.5 E/e' average: 11.7 MV dec time: 0.28 sec SV(LVOT): 123.6 ml Reading Physician:02:36 PM
--- NOTE | 2021-04-03 08:58 | CM.DANOTE ---
Addendum entered by Natalie Flores R.N. 04/03/21 12:10: Discussed patient during team rounds, and stated that patient may most likely discharge today. Patient is unable to have MRI, due to her weight. Speech therapist, Marjorie, came in and indicated, she has improved since ER with her word finding. No swallowing issues. Patient will be going back on new medication, Xarelto. Updated Maria Eugenia, facility nurse at [facility]. Sent her over via fax, signed med sheets, pending DC Summary. Arranged tack picker for 1300 today. Updated white board, and nurse, Kelsi, is updated, and gave her Maria Eugenia's number for report. Dr. Delgado was able to get in touch with patient's USER EXPERIENCE DESIGNER, Inés Klein, for updates. Patient did have echo today which is pending. Original Note: DCP: Case received, EMR reviewed and met with patient. Introduced self and role. Was able to obtain information from patient in regards to her baseline activity at her facility prior to her hospitalization. DCP assessment completed with information currently available. Patient is a 75 year old female who admitted yesterday afternoon to the care of the hospitalist team. PCP: Inés CALLE. Payer: [facility] Medicare. Patient came to the hospital via ambulance from [facility], secondary to having some altered mental status. According to USER EXPERIENCE DESIGNER, she was having some expressive aphasia. Patient is here for a CVA work up, TIA, but is unable to undergo an MRI. Met with patient in her room. She was laying in bed, alert. She confirmed that she does reside at [facility], and is mostly in her wheel-chair. She lives upstairs in [facility]. They bring her meals, she does not go down to the dining room. She has assist with toileting, showers, as well. Confirmed that she has a son named Todd who resides in [place]. P: DCP to continue to follow. Patient should be able to return to [facility] when stable, will need to contact facility to see if an assessment is necessary before they can accept her back. Natalie Flores RN/Garment Liner
[2021-04-03] MEDS: CITALOPRAM 10 MG TABLET 20 MG PO (09:16)
[2021-04-03] MEDS: APIXABAN 5 MG TABLET PO (09:16)
[2021-04-03] MEDS: MAGNESIUM OXIDE 400 MG TABLET PO (09:16)
[2021-04-03] MEDS: ASPIRIN EC 325 MG TABLET PO (09:16)
[2021-04-03] MEDS: FUROSEMIDE 40 MG TABLET 80 MG PO (09:17)
[2021-04-03] MEDS: POTASSIUM CHLORIDE 20 MEQ TAB PO (09:17)
[2021-04-03] MEDS: SODIUM CHLORIDE 0.9% FLUSH 10 ML IV (09:18)
[2021-04-03] MEDS: METOPROLOL ER 25 MG TABLET PO (09:18)
[2021-04-03] MEDS: DICLOFENAC 1% GEL 100 GM 4 APPLIC TOP (10:00)
--- NOTE | 2021-04-03 10:45 | PT.IIE ---
Medical History (Last Reviewed 04/02/21 @ 20:14 by Mendy Hunt, [facility]) Arthritis Asthma Atrial fibrillation Essential hypertension Frequent falls GERD (gastroesophageal reflux disease) Insomnia Iron deficiency anemia Lymphedema Major depressive disorder, recurrent episode with anxious distress Morbid obesity with BMI of 45.0-49.9, adult Osteoarthritis Unstable gait Physical Therapy Inpatient Evaluation/Re-Eval M1 PT/OT-IP Prior Functional Status Start: 04/03/21 09:00 Freq: NEEDED Status: Active Protocol: Document 04/03/21 10:45 AW (Rec: 04/03/21 11:22 AW [id number]) Medical Review Prior Functional Status Medical History Reviewed Yes Communication Pt is an effective verbal communicator. Mobility and Gait Pt is non-ambulatory at baseline. She uses a manual wheelchair which she occasionally propels herself with arms or legs. She is able to transfer using FWW and 1-2 person assist. She states she has been working with PT over the past 1.5 months to improve her strength and transfers. Pt has BLE pain which is worst in her left knee. Activities of Daily Living and IADL's Pt receives assist with all ADL's from facility staff. At night, she uses a bedpan. During the day, she can transfer w/c <> toilet with grab bars and assist. Prior Functional Level (Other details) Pt slid from her bed to the floor last week but denies other falls in the past one year. Social History Household Members none Living Arrangements Skilled Nurse Facility Number of Stairs To Enter/Railing? Pt lives on 2nd floor and has elevator access. Home Environment Standard Height Toilet, Elevator Home Equipment Front Wheel Walker,Manual Wheelchair,Raised Toilet Seat w/Armrests,Test Preparation Tutor,Lift Recliner,Bed Rails,Grab Bars Near Toilet,Grab Bars In Shower Additional Social History Comment Pt has an adjustable bed. She lives at [facility] where she has been for ~1 year. Her son, Todd, lives in [place]. M2 PT-IP Current Condition Start: 04/03/21 09:00 Freq: NEEDED Status: Active Protocol: Document 04/03/21 10:45 AW (Rec: 04/03/21 11:22 AW [id number]) Physical Therapy Current Condition Current Condition Evaluation Date 04/03/21 Treatment Diagnosis AMS, generalized weakness; impaired mobility Onset Date 04/02/21 M3 PT-IP Subjective Start: 04/03/21 09:00 Freq: NEEDED Status: Active Protocol: Document 04/03/21 10:45 AW (Rec: 04/03/21 11:22 AW [id number]) Subjective Physical Therapy Visit Type Type Initial Evaluation Visit Start Time 10:20 Visit Stop Time 10:45 Total Visit Minutes 25 Notes Received PT orders and reviewed chart. As this PT was finishing evaluation, OT advised that the PT order would be cancelled. Physical Therapy Visit Comments Patient Comments Pt is willing to participate with PT Patient Goals Improve strength and transfers . Therapy Pain Assessment Pain When Pain Assessed During Mobility Pain Present Pain Present Pain Reported Location B LE Scale Used not quantified Description With Movement Pain Management Techniques Re-positioning M4 PT-IP Mobility and Gait Start: 04/03/21 09:00 Freq: NEEDED Status: Active Protocol: Document 04/03/21 10:45 AW (Rec: 04/03/21 11:22 AW [id number]) PT-Bed Mobility Assessment Rolling Type of Rolling Roll to Right,Roll to Left Level of Assist Minimal Assistance,2 Person Assistance Supine to Sit Supine to Sit Maximum Assistance,1 Person Assistance,Head of Bed Elevated,Bedrails Sit to Supine Sit to Supine Moderate Assistance,2 Person Assistance Scooting Scooting Up and Down in Bed Dependent PT-Transfer Assessment Comments Mobility Comments Pt was lying in bed as PT arrived. BP 135/83 HR 81. She agreed to sit up EOB. With HOB elevated, pt required max A x 1-2 for supine to sit with most assist to mobilize her BLE. Pt grimaced in pain with movement and needed cues to focus on her breathing as RR increased. In sitting, pt was able to support herself with BUE on the bed. She sat ~5 minutes before stating she needed to go to the bathroom. She refused BSC. Mod A x 2 for sit to supine and dependent to scoot to HOB. Pt rolled bilaterally min A x 2. She was left on bedpan with call light in reach. Gait Assessment Comments Gait Comments Pt is not ambulatory at baseline. Stair Climbing Assessment Comments Stair Climbing Comments Not assessed. PT-Balance Assessment Sitting Balance and Reactions Static Sitting Balance Ability Fair Dynamic Sitting Balance Ability Fair M5 PT-IP Objective Assessments Start: 04/03/21 09:00 Freq: NEEDED Status: Active Protocol: Document 04/03/21 10:45 AW (Rec: 04/03/21 11:22 AW [id number]) Orientation Orientation/Cognition Level of Alertness Alert Orientation Name,Day of Week,Place, Situation Language Function Ability No Deficits Noted Safety Awareness Understands Safety Issues Memory Description No Deficits Noted Comments Speech was clear and content was appropriate. Gross Range of Motion Upper Extremity ROM Assessment Within Functional Limits Lower Extremity ROM Assessment Bilaterally Impaired Strength Upper Extremity Strength Assessment Bilaterally Impaired Lower Extremity Strength Assessment Bilaterally Impaired Hip 2+/5 Knee 3-/5 Ankle 4-/5 Sensation Assessment Sensation Gross Sensation Right LE Impaired,Left LE Impaired Light Touch Impaired M6 PT-IP Treatment Start: 04/03/21 09:00 Freq: NEEDED Status: Active Protocol: Document 04/03/21 10:45 AW (Rec: 04/03/21 11:22 AW [id number]) Physical Therapy Treatment Education Education Provided Safety M7 PT-IP Assessment and Plan Start: 04/03/21 09:00 Freq: NEEDED Status: Active Protocol: Document 04/03/21 10:45 AW (Rec: 04/03/21 11:22 AW [id number]) PT Summary Assessment and Plan Potential Rehabilitation Potential Fair Status of Condition at Evaluation Evolving Summary Impairments Pain,ROM,Strength,Balance, Sensation,Bed Mobility, Transfers,Gait Assessment Summary Elba is a 75 yo resident of [facility]. She is non-ambulatory at baseline and uses a manual wheelchair for limited mobility. She is able to transfer with FWW and 1-2 person assist. On evaluation, pt presents with profoundly weak BLE and requires mod-max assist for bed mobility. She refused further mobility assessment on this date. Pt is working with PT at [facility] and is motivated to improve her strength and transfers. She will be safe to discharge back to [facility] once medically stable. Goals Bed Mobility Goal Minimal Assistance Transfer Goal Moderate Assistance,Front Wheeled Walker Other Goals - Pt will sit EOB for 10 minutes to improve endurance and sitting balance. Days to Meet Goals 10 Treatment Plan Physical Therapy Treatment Plan Bed Mobility Training,Transfer Training,Therapeutic Exercise ,Balance Retraining,Discharge Planning,Hot or Cold Pack, Neuromuscular Re-ed Other Recommendations and Next Treatment bed mob, transfers, sitting Focus tolerance Recommendations To Nursing Amount of Assist Needed Mechanical Lift Discharge Recommendations PT Discharge Recommendations Home with Assistance Transportation Needs at Discharge Wheelchair/Cabulance
[2021-04-03] MEDS: HYDROCODONE/ACET 10/325 TABLET 2 TAB PO (12:04)
--- NOTE | 2021-04-03 12:34 | ST.IPSLE ---
Visit Care Team Role Provider Type LUC Bruce Primary Care Provider Non-Staff Specialty: Medical Address: [address] [place] [address], [id number] Email: Celi Singh DO Emergency Provider Physician Referring Provider Specialty: Emergency Medicine Address: [address] [place] [address], [facility] Email: [email or web address] Minerva Delgado MD Admit Provider Physician Attending Provider Specialty: Internal Medicine Address: [address] [place] [address], [facility] Email: [email or web address] Past Medical History (Last Reviewed 04/02/21 @ 20:14 by Mendy Hunt [facility]) Arthritis (Medical) Asthma (Medical) Atrial fibrillation (Medical) Essential hypertension (Medical) Frequent falls (Medical) GERD (gastroesophageal reflux disease) (Medical) History of adjustable gastric banding (Medical) History of bilateral hip replacements (Medical) History of gastric bypass (Medical) Insomnia (Medical) Iron deficiency anemia (Medical) Lymphedema (Medical) Major depressive disorder, recurrent episode with anxious distress (Medical) Morbid obesity with BMI of 45.0-49.9, adult (Medical) Osteoarthritis (Medical) Unstable gait (Medical) Speech-Language Pathology Speech/Language Eval TURN OUT Adult Cognitive Linguistic Eval Start: 04/03/21 12:19 Freq: Status: Active Protocol: Document 04/03/21 12:20 LNK (Rec: 04/03/21 12:34 LNK [id number]) Adult Cognitive Linguistic Evaluation Session Time Visit Start Time 10:55 Visit Stop Time 11:30 Total Visit Minutes [address] Delgado Setting Assessment Location Acute Care Visit Type Note Type Initial evaluation Patient Information Identification Type Name,Wristband Medical History PER H&P: Patient is a 75-year -old female Elba Hicks who resides at [facility], and was brought in today via EMS for mental status change, speech difficulties and word-finding that the patient notes started a few days ago. She also experienced increased difficulty and weakness while transferring from her bed to wheelchair, the patient has a skin wound on the left lower leg that she notes developed approximately 1 week ago but is not related to her admit today. Unable to rule out stroke without an MR, more likely TIA. Head CT was negative. Possible encephalopathy due to UTI? Confounding factor may also be the amount of [place] the patient takes on a daily basis for her chronic pain. I am holding her [place] at this time . Monitor patient overnight. U /A ordered, PT evaluation tomorrow. Patient unable to complete MR due to weight incompatibility. Subjective Patient Report Pt in bed. Agreeable to have assessment Assessment Oral Motor Examination Completed No: Informal observation indicated structures and function to be WFL Informal Assessment Receptive Language Normal Yes Expressive Language Normal Yes: Word finding problems noted before current event/ hospitalization. Pragmatic Language Normal Yes Speech Normal Yes Cognition Normal Yes Formal Assessment Results Pt was able to name pictures presented 5/6. With a phonemic cue, was able to name the 6th picture. She accurately described the cookie theft picture and was able to read 5 /5 sentences presented. No dysarthria observed. In conversation, pt had difficulty with word finding x1. She stated that the word finding was happening prior to this hospitalization/event for some time now. She indicated she would be receptive to ST services at [facility] if it was available. Findings/Results Language Function Within normal limits Cognitive Function Within normal limits Plan of Care Patient/Caregiver Education Described results of evaluation,Patient expressed understanding of evaluation Discharge Recommendations [facility] facility
--- NOTE | 2021-04-03 13:39 | PC.NURSE ---
Pt received lying in bed. She is A&OX3, pleasant. VSS, afebrile. C/O chronic pain to shoulders and Below knees, due to osteoarthritis. She declines to sit up in the chair this a.m. Calling for bed meyer to urinate this a.m. x3. Medicated with PRN tylenol with minimal effect crying out with knee pain with repositioning. Patient with good po intake. Echo completed at bedside. ST performed eval. Pt expresses that she wants to go back to [facility].MD clearing patient for discharge this a.m. Recieved order for hydrocodone 2 tabs per patient request for transport to /. 2 person, mod assist to wheel chair. Report hernandez dto Dimple Soliman and patient returned to [facility] at approximately 1320 this afternoon.
--- NOTE | 2021-04-03 17:54 | P.DS_ITS ---
History of Present Illness History of Present Illness Chief complaint: Aletred mental status Narrative: Patient is a 75-year-old female Elba Hicks who resides at [facility], and was brought in today via EMS for mental status change, speech difficulties and word-finding that the patient notes started a few days ago. She also experienced increased difficulty and weakness while transferring from her bed to wheelchair, the patient has a skin wound on the left lower leg that she notes developed approximately 1 week ago but is not related to her admit today. The patient reports that she had a nontraumatic slide off the side of her bed onto the floor approximately 1 week ago but did not hit her head or have loss of consciousness. She has suffered from several UTIs over the past several months. The patient is morbidly obese and has profound osteoarthritis in knees and shoulders and hips and is predominantly bed-bound or in a wheelchair. During admit interview patient continues to struggle with word finding, appears slightly dazed with an inability to complete a full thought/full sentence. NIH:1 (best language). Patient did struggle to complete the physical testing of the NIH, she advised that she is physically at her normal baseline, this is supported by her weight and lack of physical activity. Patient denies chest pain, shortness of breath, numbness, weakness, tingling, d ifficulty swallowing, headache, changes in vision, changes in bowel or bladder, denies urinary symptoms, hematuria, melena, fever, body aches, chills, abdominal pain, nausea, vomiting, diarrhea, recent illness, injury, or trauma. Patient has a history of atrial fibrillation and is on Eliquis, hypertension, asthma, insomnia, major depressive disorder, iron deficiency anemia, abnormal an unstable gait/mobility with frequent falls, lymphedema, hypomagnesia, GERD, morbid obesity, and osteoarthritis. Patient's vitals upon admit slightly febrile temp 99.3?, BP 131/60, HR 79, RR 16, O2 saturation 95% on room air. Patient's CBC demonstrated her chronic iron deficiency anemia HGB stable at 10.1, HCT 31.4. Patient's chemistries were predominantly unremarkable with a sodium of 136, glucose 116, troponin, proBNP, and procalcitonin all within normal limits. NIH score on admit:1. Head neck CTA and head CT were both negative for stroke. Unable to perform MR due to patient's BMI of 49.2. Patient admitted for TIA versus stroke rule out. Discharge Providers Provider Date of admission: 04/02/21 17:10 Discharge Date: 04/03/21 Primary care physician: LUC Bruce Consults: 04/02/21 19:09 Consult to Dietitian, Adult Routine Comment: Reason For Exam: Morbid obesity Consult to Occupational Therapy Evaluate & Treat Comment: poss TIA Physician Instructions: Evaluate and treat Consult to Physical Therapy Evaluate & Treat Comment: Poss TIA Physician Instructions: Evaluate and Treat 04/02/21 19:10 Consult to Discharge Planning Routine Comment: 04/02/21 23:40 Consult to Physical Therapy Evaluate & Treat Comment: assess mobility Physician Instructions: Evaluate and Treat 04/03/21 11:53 Consult to Speech Therapy Evaluate & Treat Comment: Physician Instructions: Evaluate and treat Discharge provider: Minerva Delgado MD Summary Hospital Course Discharge Diagnosis: Probable TIA Asthma, History of atrial fibrillation on Eliquis Morbid obesity GERD frequent fall Hospital Course: The patient was admitted to the hospital for evaluation of speech abnormalities, she was also found to have mental status change as well as word-finding difficulty. The patient this morning had no further word-finding difficulties. She was seen by myself and able to speak fluently without any dysarthria, aphasia or word-finding problems. She was seen in consultation by speech pathology who concurred that there were no acute speech abnormalities. Patient does recall the event from the night before. She had no further weakness. She [facility] As part of her workup of her speech abnormalities the patient had a head CT in the emergency room which was negative. She underwent a cardiac echo to rule embolic focus. The cardiac echo revealed the left ventricle was normal in size and thickness. Left ventricular systolic function was normal. Ejection fraction 60 65%. There was no focal wall motion abnormalities. There was suggesting of diastolic filling did defects. Both atria were normal in size. There was mild aortic regurgitation. No significant valvular heart disease. Patient was deemed appropriate for discharge. Patient was felt to be a failed Eliquis treatment. As she is on Eliquis for her atrial fibrillation and had a probable TIA her Eliquis was discontinued and the patient was started on Xarelto at 20 mg per day. This was discussed with her primary care provider who concurred with her treatment plan. The patient did not undergo MRI during the hospital stay as she exceeded the weight limit for our MRI. She was deemed to be appropriate for discharge and discharged back to [facility]. Status at Discharge Cognitive/behavioral status at discharge: at baseline, oriented Functional status at discharge: wheelchair bound Overall status at discharge: patient is back to baseline Exam Vital Signs (past 8 hours): - 04/03/21 10:00 04/03/21 10:23 04/03/21 12:00 Pulse Rate 85 Blood Pressure 133/75 Pulse Oximetry 94 94 Oxygen Delivery Method Room Air Oxygen Flow Rate 0 Narrative Exam Narrative: Pleasant female in no obvious distress Resp Other: Lungs clear to auscultation Cardio Other: Cardiac exam irregularly irregular normal S1-S2 GI Other: Abdomen obese and nontender Neuro Other: Neuro exam: Nonfocal, patient's speech was back to baseline Objective Labs Result Diagrams: 04/03/21 06:05 04/03/21 06:05 Labs: Laboratory Results - last 24 hr 04/02/21 04/02/21 04/02/21 14:22 14:22 23:45 WBC RBC Hgb Hct MCV MCH MCHC RDW Plt Count Neut % (Auto) Lymph % (Auto) [place] % (Auto) Eos % (Auto) Baso % (Auto) Neut # (Auto) Lymph # (Auto) [place] # (Auto) Eos # (Auto) Baso # (Auto) PT INR APTT Sodium Potassium Chloride Carbon Dioxide BUN Creatinine Estimated GFR BUN/Creatinine Ratio Glucose Calcium Magnesium 2.2 Troponin I NT-Pro-B Natriuret Pep Triglycerides Cholesterol LDL Cholesterol, Calc HDL Cholesterol TSH 2.11 Urine Color Yellow Urine Appearance Clear Urine pH 7.0 Ur Specific [place] 1.010 Urine Protein Negative Urine Glucose (UA) Negative Urine Ketones Negative Urine Occult Blood Negative Urine Nitrate Negative Urine Bilirubin Negative Urine Urobilinogen 0.2 Ur Leukocyte Esterase Negative Urine RBC None seen Urine WBC None seen Urine Bacteria None seen Ur Culture Indicated? Cult not indicated 04/03/21 04/03/21 04/03/21 06:05 06:05 06:05 WBC 6.1 RBC 3.06 L Hgb 9.1 L Hct 28.0 L MCV 91.3 MCH 29.7 MCHC 32.6 RDW 15.1 H Plt Count 232 Neut % (Auto) 70.6 Lymph % (Auto) 14.0 L [place] % (Auto) 10.3 Eos % (Auto) 4.0 Baso % (Auto) 1.1 Neut # (Auto) 4300 Lymph # (Auto) 900 L [place] # (Auto) 600 Eos # (Auto) 200 Baso # (Auto) 100 PT 19.0 H INR 1.7 H APTT 44 H Sodium 136 L Potassium 3.7 Chloride 99 Carbon Dioxide 34 H BUN 16 Creatinine 0.87 Estimated GFR > 60.0 BUN/Creatinine Ratio 18.4 Glucose 91 Calcium 8.8 Magnesium Troponin I < 0.012 NT-Pro-B Natriuret Pep 385 Triglycerides 91 Cholesterol 105 L LDL Cholesterol, Calc 50 HDL Cholesterol 37 L TSH Urine Color Urine Appearance Urine pH Ur Specific [place] Urine Protein Urine Glucose (UA) Urine Ketones Urine Occult Blood Urine Nitrate Urine Bilirubin Urine Urobilinogen Ur Leukocyte Esterase Urine RBC Urine WBC Urine Bacteria Ur Culture Indicated? [facility] Medical History Arthritis Asthma Atrial fibrillation Essential hypertension Frequent falls GERD (gastroesophageal reflux disease) Insomnia Iron deficiency anemia Lymphedema Major depressive disorder, recurrent episode with anxious distress Morbid obesity with BMI of 45.0-49.9, adult Osteoarthritis Unstable gait Surgical History History of adjustable gastric banding History of bilateral hip replacements History of gastric bypass Family History Mother Stroke Dementia Father Autoimmune disease Social History household members: none Smoking Status: Former smoker Discharge Assessment & Plan Assessment and Plan Assessment: 1. Probable TIA 2. Atrial fibrillation 3. Morbid obesity Plan of Treatment: Patient will be discharged back to [facility] [address] [facility]. She will be switch from Eliquis to Xarelto. Discharge Plan Discharge Plan Patient Disposition: Home Discharge orders & Medications Prescriptions: New Xarelto 20 mg tablet 20 mg PO DAILY Qty: 30 RF: 0 Continued hydrocodone-acetaminophen 5-325 mg tablet 2 tab PO BEDTIME RF: 0 melatonin 3 mg Tablet 6 mg PO BEDTIME RF: 0 citalopram 20 mg tablet 20 mg PO DAILY RF: 0 furosemide 80 mg tablet 80 mg PO DAILY RF: 0 montelukast 10 mg tablet 10 mg PO BEDTIME RF: 0 metoprolol succinate 25 mg tablet extended release 24 hr 25 mg PO DAILY RF: 0 diclofenac sodium 1 % gel 4 g TOPICAL BID RF: 0 Arnuity Ellipta 200 mcg/actuation blister with device 1 inh INHALATION DAILY RF: 0 magnesium oxide 400 mg magnesium Tablet 400 mg PO BID RF: 0 sennosides [senna] 8.6 mg Tablet 8.6 mg PO DAILY PRN (Reason: Constipation) RF: 0 polyethylene glycol 3350 17 gram Powder In Packet 17 g PO DAILY PRN (Reason: Constipation) RF: 0 fexofenadine 60 mg Tablet 60 mg PO BID PRN (Reason: unknown) RF: 0 hydrocodone-acetaminophen 5-325 mg Tablet 1 tab PO Q4H PRN (Reason: Pain (Scale Score 1-3)) RF: 0 cyanocobalamin (vitamin B-12) [Vitamin B-12] 1,000 mcg Tablet 1,000 mcg PO DAILY RF: 0 omeprazole 40 mg capsule,delayed release(DR/EC) 40 mg PO DAILY RF: 0 potassium chloride 20 mEq tablet,ER particles/crystals 20 meq PO DAILY RF: 0 lorazepam 0.5 mg tablet 0.5 - 1 mg Q6H PRN (Reason: Anxiety) RF: 0 magnesium hydroxide [Milk of Magnesia] 400 mg/5 mL Suspension 400 mg PO DAILY PRN (Reason: Constipation) RF: 0 hydrocortisone 1 % Cream 1 applic TOPICAL Q6H PRN (Reason: Rash) RF: 0 bisacodyl 10 mg Suppository 10 mg MN DAILY RF: 0 nystatin 100,000 unit/gram powder 1 applic TOPICAL Q6H PRN (Reason: Rash) RF: 0 albuterol sulfate 90 mcg/actuation HFA aerosol inhaler 2 inh INHALATION Q4HR PRN (Reason: Shortness Of Breath) RF: 0 bisacodyl 5 mg Tablet 10 mg PO DAILY PRN (Reason: Constipation) RF: 0 cholecalciferol (vitamin D3) [Vitamin D3] 25 mcg (1,000 unit) Tablet 25 mcg PO DAILY RF: 0 PNV cmb#95-ferrous fumarate-FA [] 28 mg iron- 800 mcg Tablet 1 tab PO DAILY RF: 0 Discontinued Eliquis 5 mg tablet 5 mg PO BID RF: 0 Follow up/Referrals: Inés Whitley ARNP [Primary Care Provider] - Diet/Activity/Treatments Diet: Low-sodium and Low-cholesterol Activity: as tolerated Discharge Data Primary Care Provider: Inés Whitley Attending Provider: Minerva Delgado Stroke Symptom Onset Unknown: Yes
== END 2021-04-03 13:20 | disposition home or self-care (01) ==
LOC: ED 17:10 → AC 17:11
PROVIDERS: Nurse Practitioner Family; Admitting Provider Internal Medicine; Emergency Provider Emergency Medicine; PCP Nurse Practitioner Family; Referring Provider Emergency Medicine; Visit Provider Internal Medicine
DX: R41.82 Altered mental status, unspecified (principal); R47.01 Aphasia; R29.701 NIHSS score 1; I89.0 Lymphedema, not elsewhere classified; E66.01 Morbid (severe) obesity due to excess calories; Z91.81 History of falling; M19.90 Unspecified osteoarthritis, unspecified site; I48.91 Unspecified atrial fibrillation; Z79.01 Long term (current) use of anticoagulants; I10 Essential (primary) hypertension; F32.9 Major depressive disorder, single episode, unspecified; Z99.3 Dependence on wheelchair; Z68.42 Body mass index [BMI] 45.0-49.9, adult; J45.909 Unspecified asthma, uncomplicated; F41.9 Anxiety disorder, unspecified; K21.9 Gastro-esophageal reflux disease without esophagitis; G47.00 Insomnia, unspecified; Z20.822 Contact with and (suspected) exposure to COVID-19
CPT/HCPCS: 36415; 70450; 70496; 70498; 80048; 80061; 80305; 81001; 81003; 82550; 83735; 83880; 84145; 84443; 84484; 85025; 85610; 85730; 87635; 92523; 93005; 93306; 94762; 96361; 96374; 97162; 99285; C9803; G0378; A9270; J2405; Q9967

== ENCOUNTER → 2021-04-07 08:27 | Outpatient (ROUT) | payer MEDICARE, SELFPAY ==
[2021-04-02 21:37] VITALS: BMI 49.1
[2021-04-07 09:26] LABS: BUN Creatinine Ratio 24.7 (6-22); Blood Urea Nitrogen 22 mg/dL (7-17); Carbon Dioxide 34 mmol/L (22-32); Chloride 99 mmol/L (98-107); Estimated Glomerular Filt Rate > 60.0 mL/min (>60); Glucose 83 mg/dL (80-110); HEMOLYSIS < 15 (0-50); Potassium 3.6 mmol/L (3.4-5.1); Sodium 139 mmol/L (137-145)
== END ==
PROVIDERS: PCP Nurse Practitioner Family; Visit Provider Nurse Practitioner Family
DX: R60.9 Edema, unspecified (principal)
CPT/HCPCS: 36415; 80048

== ENCOUNTER → 2021-06-16 08:31 | Outpatient (ROUT) | payer MEDICARE, SELFPAY ==
[2021-06-16 09:24] LABS: Add Manual Diff / Slide Review NO; Basophils Absolute Auto 0 /uL (0-100); Basophils Percent Auto 0.4 % (0-2); Eosinophils Absolute Auto 100 /uL (0-450); Eosinophils Percent Auto 2.5 % (2-4); Hematocrit 28.6 % (36-46); Hemoglobin 9.3 g/dL (12.0-16.0); Lymphocytes Absolute Auto 1000 /uL (1100-4500); Lymphocytes Percent Auto 16.3 % (25-40); Mean Corpuscular HGB Conc 32.6 % (30-36); Mean Corpuscular Hemoglobin 29.8 PG (26-34); Mean Corpuscular Volume 91.3 fL (80-100); Monocytes Absolute Auto 700 /uL (0-900); Monocytes Percent Auto 11.6 % (3-14); Neutrophils Absolute Auto 4000 /uL (1500-7000); Neutrophils Percent Auto 69.2 % (50-75); Platelet Count 220 X10^3/uL (150-400); Red Blood Cell Count 3.13 X10^6/uL (4.0-5.2); Red Cell Distribution Width 14.9 % (11.6-14.8); White Blood Cell Count 5.8 X10^3/uL (4.5-11.0)
[2021-06-16 09:51] LABS: BUN Creatinine Ratio 21.1 (6-22); Blood Urea Nitrogen 20 mg/dL (7-17); Calcium 9.2 mg/dL (8.4-10.2); Carbon Dioxide 35 mmol/L (22-32); Chloride 100 mmol/L (98-107); Estimated Glomerular Filt Rate 57.2 mL/min (>60); Glucose 80 mg/dL (80-110); HEMOLYSIS < 15 (0-50); Potassium 3.7 mmol/L (3.4-5.1); Sodium 139 mmol/L (137-145)
== END ==
PROVIDERS: PCP Nurse Practitioner Family; Visit Provider Nurse Practitioner Family
DX: Z79.899 Other long term (current) drug therapy (principal); D64.9 Anemia, unspecified
CPT/HCPCS: 36415; 80048; 85025

== ENCOUNTER 2021-06-20 16:20 | Inpatient (IN) | payer MEDICARE, SELFPAY ==
[2021-06-20] VITALS (18 sets, daily range): BP systolic 106–197; BP diastolic 57–89; PULSE 72–92; RESP 18–28; TEMP 36.4–39.3; O2SAT 93–98; BMI 45.7
--- NOTE | 2021-06-20 16:51 | DI.RAD.S_ITS ---
PROCEDURE: XR PELVIS 1-2V INDICATIONS: ? pelvic pain, left hip, no trauma history TECHNIQUE: 2 view(s) of the pelvis acquired. COMPARISON: None. FINDINGS: Bones: No fractures or dislocations. Bilateral hip arthroplasties. Right femur ORIF. No suspicious bony lesions. Soft tissues: Visualized bowel gas pattern is normal. No suspicious soft tissue calcifications. Rectal temperature probe. IMPRESSION: Bilateral hip arthroplasties. No acute fractures identified. If clinically indicated CT bony pelvis could be performed for further evaluation. Dictated by: Satya Doan M.D. on 06/20/2021 at 17:53 Approved by: Satya Doan M.D. on 06/20/2021 at 17:55
--- NOTE | 2021-06-20 16:53 | DI.RAD.S_ITS ---
PROCEDURE: XR CHEST 1V INDICATIONS: fever TECHNIQUE: One view of the chest was acquired. COMPARISON: [facility], CT, CT ANGIO HEAD AND NECK, 04/02/2021, 14:29. FINDINGS: Surgical changes and devices: Clips in the left upper abdomen. Lungs and pleura: No consolidation. No pleural effusions or pneumothorax. Mediastinum: Mediastinal contours appear normal. Heart size is at the upper limits of normal. Bones and chest wall: No suspicious bony lesions. Overlying soft tissues appear unremarkable. IMPRESSION: No consolidation identified. Dictated by: Satya Doan M.D. on 06/20/2021 at 17:50 Approved by: Satya Doan M.D. on 06/20/2021 at 17:53
--- NOTE | 2021-06-20 16:53 | DI.CT.S_ITS ---
PROCEDURE: CT HEAD/BRAIN WO CON INDICATIONS: fever, ams TECHNIQUE: Noncontrast 4.5 mm thick angled axial sections acquired from the foramen magnum to the vertex, with coronal and sagittal reformats. For radiation dose reduction, the following was used: automated exposure control, adjustment of mA and/or kV according to patient size. COMPARISON: [facility], CT, CT HEAD/BRAIN WO CON, 04/02/2021, 14:29. FINDINGS: Image quality: Fair. CSF spaces: Basal cisterns are patent. No extra-axial fluid collections. Ventricles are normal in size and shape. Brain: No midline shift. No intracranial masses or hemorrhage. No area of hypodensity in a large vascular distribution to suggest acute infarction. Periventricular hypodensity consistent with chronic microvascular ischemic change. Age-related parenchymal loss. Skull and face: Calvarium and visualized facial bones are intact, without suspicious lesions. Hyperostosis frontalis. Sinuses: Visualized sinuses and mastoids are clear. IMPRESSION: No acute intracranial abnormality. Dictated by: Satya Doan M.D. on 06/20/2021 at 17:28 Approved by: Satya Doan M.D. on 06/20/2021 at 17:30
--- NOTE | 2021-06-20 16:56 | ED.AMS ---
HPI - Altered Mental Status General Chief Complaint: Altered Mental Status Stated Complaint: Altered mental status Time Seen by Provider: 06/20/21 16:25 Source: patient, EMS and old records reviewed Mode of arrival: EMS Limitations: altered mental status History of Present Illness HPI narrative: This is a 75-year-old female who comes to emergency department with complaint of altered mental status. Patient is having difficulty with speech and concern for possible stroke. Patient was here in March for possible stroke and suspected have a TIA with failure on Eliquis and changed to Xarelto. Per EMS they state that she also seemed to have quite foul odor to urine. She was last seen normal sometime before 10:00 a.m, but exact time frame is unclear. Patient is febrile here in the department. She answers yes no to some questions but has difficulty getting her words out. She does seem to be altered and does not clearly answer questions. She does have a history of morbid obesity, atrial fibrillation major depression, hypertension with prior CVA/TIA and is currently at [facility]. Related Data Home Medications Medication Instructions Recorded Confirmed albuterol sulfate 90 mcg/actuation 2 inh INHALATION Q4HR PRN 04/02/21 04/02/21 aerosol inhaler bisacodyl 10 mg rectal suppository 10 mg ME DAILY 04/02/21 04/02/21 bisacodyl 5 mg tablet 10 mg PO DAILY PRN 04/02/21 04/02/21 cholecalciferol (vitamin D3) 25 25 mcg PO DAILY 04/02/21 04/02/21 mcg (1,000 unit) tablet (Vitamin D3) citalopram 20 mg tablet 20 mg PO DAILY 04/02/21 04/02/21 cyanocobalamin (vitamin B-12) 1,000 mcg PO DAILY 04/02/21 04/02/21 1,000 mcg tablet (Vitamin B-12) diclofenac sodium 1 % topical gel 4 g TOPICAL BID 04/02/21 04/02/21 fexofenadine 60 mg tablet 60 mg PO BID PRN 04/02/21 04/02/21 fluticasone furoate 200 1 inh INHALATION DAILY 04/02/21 04/02/21 mcg/actuation blister powder for inhalation (Arnuity Ellipta) furosemide 80 mg tablet 80 mg PO DAILY 04/02/21 04/02/21 hydrocodone 5 mg-acetaminophen 325 1 tab PO Q4H PRN 04/02/21 04/02/21 mg tablet hydrocodone 5 mg-acetaminophen 325 2 tab PO BEDTIME 04/02/21 04/02/21 mg tablet hydrocortisone 1 % topical cream 1 applic TOPICAL Q6H PRN 04/02/21 04/02/21 lorazepam 0.5 mg tablet 0.5 - 1 mg Q6H PRN 04/02/21 04/02/21 magnesium hydroxide 400 mg/5 mL 400 mg PO DAILY PRN 04/02/21 04/02/21 oral suspension (Milk of Magnesia) magnesium oxide 400 mg PO BID 04/02/21 04/02/21 melatonin 3 mg tablet 6 mg PO BEDTIME 04/02/21 04/02/21 metoprolol succinate 25 mg 25 mg PO DAILY 04/02/21 04/02/21 tablet,extended release 24 hr montelukast 10 mg tablet 10 mg PO BEDTIME 04/02/21 04/02/21 nystatin 100,000 unit/gram topical 1 applic TOPICAL Q6H PRN 04/02/21 04/02/21 powder omeprazole 40 mg capsule,delayed 40 mg PO DAILY 04/02/21 04/02/21 release polyethylene glycol 3350 17 gram 17 g PO DAILY PRN 04/02/21 04/02/21 oral powder packet potassium chloride 20 mEq 20 meq PO DAILY 04/02/21 04/02/21 tablet,extended release(part/cryst) vit no.95-ferrous 1 tab PO DAILY 04/02/21 04/02/21 fumarate 28 mg-folic acid 800 mcg tablet () sennosides 8.6 mg tablet (senna) 8.6 mg PO DAILY PRN 04/02/21 04/02/21 Previous Rx's Medication Instructions Recorded rivaroxaban 20 mg tablet (Xarelto) 20 mg PO DAILY #30 tab 04/03/21 Allergies Allergy/AdvReac Type Severity Reaction Status Date / Time codeine Allergy Verified 04/02/21 14:18 diphenhydramine Allergy Verified 04/02/21 14:18 [From Benadryl Allergy] Penicillins Allergy Verified 04/02/21 14:18 Review of Systems Review of Systems ROS Unobtainable: All systems reviewed & are unremarkable except as noted in HPI and below Patient History Medical History Arthritis Asthma Atrial fibrillation Essential hypertension Frequent falls GERD (gastroesophageal reflux disease) Insomnia Iron deficiency anemia Lymphedema Major depressive disorder, recurrent episode with anxious distress Morbid obesity with BMI of 45.0-49.9, adult Osteoarthritis Unstable gait Surgical History History of adjustable gastric banding History of bilateral hip replacements History of gastric bypass Family History Mother Stroke Dementia Father Autoimmune disease Social History household members: none Smoking Status: Former smoker Smoking Status: Former smoker alcohol intake frequency: 0-2 drinks per day Substance Use Type: does not use Exam Narrative Exam Narrative: GEN: Obese female, patient appears confused, she is awake but does not open her eyes most of the time, patient appears to be in [id number] distress. Patient feels warm to touch. HEENT: Atraumatic, pupils are equal round reactive to light, extraocular movements are intact, nares are clear, TMs are clear with no fluid, there is no conjunctival pallor. Throat is clear without any exudates, erythema, tonsillar enlargement or uvular deviation HEART: Regular rate and rhythm without murmur, clicks, rubs. No carotid bruits, pulses are equal in upper and lower extremities LUNGS:Lungs clear to auscultation, no wheezes, rales, crackles, chest moves symmetrically ABD:bowel sounds normal, soft, non-tender, no guarding, rebound, rigidity, no masses noted, no hepatosplenomegaly :No CVA tenderness MSCL: Patient has tenderness in all 4 extremities and seems to be in discomfort particulars movement of the left hip. No reported trauma but patient does appear little shortened and slightly rotated. 2+ pulses bilateral lower extremities. No point bony tenderness on exam. NEURO:CN 2-12 intact, sensation normal, reflexes 2/4 upper and lower extremities. Patient unable to fully particpate in neuro exam. SKIN: No rash, erythema or skin changes. Initial Vital Signs Initial Vital Signs: Vital Signs Temperature 102.1 F H 06/20/21 16:20 Pulse Rate 89 06/20/21 16:20 Respiratory Rate 20 06/20/21 16:20 Blood Pressure 155/79 H 06/20/21 16:20 Pulse Oximetry 97 06/20/21 16:20 Scores GCS [place] coma scale eye opening: To sound [place] coma scale verbal response: Confused Jessi coma scale motor response: Localising [place] coma scale total score: 12 Course Orders Ordered: ED Orders 06/20/21 16:27 Complete Blood Count AUTO DIFF Stat Comprehensive Metabolic Panel Stat Ethanol (ETOH) Stat Lactate (Lactic Acid) Stat NT-proBNP (BNP-Adult 18+) Stat Procalcitonin Stat Prolactin Stat Thyroid Stimulating Hormone Stat Troponin & CK Cardiac Panel Stat 06/20/21 16:41 COVID19 - 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 (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/PCR) Stat COVID19 -Nasal swab/Pre-Proc Stat 06/20/21 16:51 XR pelvis 1-2V Stat 06/20/21 16:52 EKG-12 Lead Stat 06/20/21 16:53 CT head/brain wo con Stat XR chest 1V Stat 06/20/21 16:58 Urinalysis and Microscopic Stat Urine Culture Stat Urine Drug Screen, Rapid Stat 06/20/21 17:54 Blood Culture Stat Levofloxacin (Levaquin) 750 mg in 150 mls @ 100 mls/hr IV NOW ONE Stop: 06/20/21 19:04 Last Infusion: 06/20/21 17:49 Dose: 100 mls/hr Documented by: Infusion: 06/20/21 17:41 Dose: 0 mls/hr Documented by: Admin: 06/20/21 17:41 Dose: 100 mls/hr Documented by: OSMANI Discontinued Medications Acetaminophen (Acetaminophen 650 Mg Supp) 650 mg ME NOW ONE Stop: 06/20/21 17:32 Last Admin: 06/20/21 17:41 Dose: 650 mg Documented by: OSMANI Sodium Chloride (Normal Saline 0.9%) 1,000 mls @ 1,000 mls/hr IV BOLUS ONE Stop: 06/20/21 17:53 Last Infusion: 06/20/21 17:41 Dose: 0 mls/hr Documented by: Admin: 06/20/21 17:40 Dose: 1,000 mls/hr Documented by: OSMANI Consultations Consultation #1: Dr. Partida, accepts for admission. Patient has fever, altered mental status but does not appear to be acutely septic. She has had prior TIAs but does not have clear lateralizing changes today. Head CT was negative with no acute changes on other imaging. Patient was covered with Levaquin as she has penicillin allergy but unclear what that is exactly. We also have help patient's fluid as her BNP slightly elevated and she has not been hypotensive or tachycardic and does not meet septic criteria at this time. Vital Signs Vital signs: Vital Signs - 8 hr 06/20/21 16:20 06/20/21 16:29 06/20/21 16:30 Temperature 102.1 F H Pulse Rate 89 89 90 Respiratory Rate 20 18 24 Blood Pressure 155/79 H Pulse Oximetry 97 93 06/20/21 16:31 06/20/21 17:00 06/20/21 17:41 Temperature 102.1 F H Pulse Rate 92 H 90 Respiratory Rate 24 23 Blood Pressure 155/79 H Pulse Oximetry 93 95 MDM - Altered Mental Status Lab Data Result diagrams: 06/20/21 16:27 06/20/21 16:27 Labs: Lab Results 06/20/21 06/20/21 06/20/21 Range/Units 16:27 16:27 16:27 WBC 11.0 (4.5-11.0) X10^3/uL RBC 3.71 L (4.0-5.2) X10^6/uL Hgb 11.1 L (12.0-16.0) g/dL Hct 33.3 L (36-46) % MCV 89.9 (80-100) fL MCH 29.8 (26-34) PG MCHC 33.2 (30-36) % RDW 14.4 (11.6-14.8) % Plt Count 265 (150-400) X10^3/uL Neut % (Auto) 83.0 H (50-75) % Lymph % (Auto) 7.2 L (25-40) % Early % (Auto) 9.2 (3-14) % Eos % (Auto) 0.3 L (2-4) % Baso % (Auto) 0.3 (0-2) % Neut # (Auto) 9100 H (0536-4881) /uL Lymph # (Auto) 800 L (8584-7186) /uL Early # (Auto) 1000 H (0-900) /uL Eos # (Auto) 0 (0-450) /uL Baso # (Auto) 0 (0-100) /uL Sodium 141 (137-145) mmol/L Potassium 3.3 L (3.4-5.1) mmol/L Chloride 98 (98-107) mmol/L Carbon Dioxide 35 H (22-32) mmol/L BUN 14 (7-17) mg/dL Creatinine 0.92 (0.52-1.04) mg/dL Estimated GFR 59.4 L (>60) mL/min BUN/Creatinine Ratio 15.2 (6-22) Glucose 130 H (80-110) mg/dL Lactate (0.7-2.1) mmol/L Calcium 9.5 (8.4-10.2) mg/dL Total Bilirubin 0.9 (0.2-1.3) mg/dL AST 20 (14-36) IU/L ALT 12 (<35) IU/L Alkaline Phosphatase 70 (38-126) U/L Total Creatine Kinase 35 (30-135) U/L CK-MB (CK-2) TNP CK-MB (CK-2) Rel Index TNP Troponin I < 0.012 (0.01-0.034) ng/mL NT-Pro-B Natriuret Pep (<450) pg/mL Total Protein 6.8 (6.3-8.2) g/dL Albumin 3.8 (3.5-5.0) g/dL Globulin 3.0 (1.7-4.1) g/dL Albumin/Globulin Ratio 1.3 (1.0-2.8) Procalcitonin (<0.5) ng/mL TSH (0.47-4.68) uIU/mL Prolactin 6.0 (3.0-18.6) ng/mL Urine Color Urine Appearance Urine pH (4.5-8.0) Ur Specific [place] (1.000-1.035) Urine Protein (Negative) Urine Glucose (UA) (Negative) g/dL Urine Ketones (NEGATIVE) Urine Occult Blood (Negative) Urine Nitrate (Negative) Urine Bilirubin (NEGATIVE) Urine Urobilinogen (0.2) E.U./dL Ur Leukocyte Esterase (NEGATIVE) Urine RBC (0-5/HPF) Urine WBC (0-5/HPF) Ur Squamous Epith Cells (0-5/HPF) Urine Bacteria (None) Ur Culture Indicated? U Opiates 300ng/mL cut (Negative) Ur Oxycodone Screen (Negative) Urine Methadone Screen (Negative) Ur Barbiturates Screen (Negative) U Tricyclic Antidepress (Negative) Ur Phencyclidine Scrn (Negative) Ur Amphetamines Screen (Negative) U Methamphetamines Scrn (Negative) Ur MDMA Scrn (Ecstasy) (Negative) U Benzodiazepines Scrn (Negative) Urine Cocaine Screen (Negative) U Marijuana (THC) Screen (Negative) Ethyl Alcohol < 10 ( - 10) mg/dL SARS-CoV-2 (PCR) (Negative) 06/20/21 06/20/21 06/20/21 Range/Units 16:27 16:27 16:27 WBC (4.5-11.0) X10^3/uL RBC (4.0-5.2) X10^6/uL Hgb (12.0-16.0) g/dL Hct (36-46) % MCV (80-100) fL MCH (26-34) PG MCHC (30-36) % RDW (11.6-14.8) % Plt Count (150-400) X10^3/uL Neut % (Auto) (50-75) % Lymph % (Auto) (25-40) % Early % (Auto) (3-14) % Eos % (Auto) (2-4) % Baso % (Auto) (0-2) % Neut # (Auto) (8595-9283) /uL Lymph # (Auto) (5191-6096) /uL Early # (Auto) (0-900) /uL Eos # (Auto) (0-450) /uL Baso # (Auto) (0-100) /uL Sodium (137-145) mmol/L Potassium (3.4-5.1) mmol/L Chloride (98-107) mmol/L Carbon Dioxide (22-32) mmol/L BUN (7-17) mg/dL Creatinine (0.52-1.04) mg/dL Estimated GFR (>60) mL/min BUN/Creatinine Ratio (6-22) Glucose (80-110) mg/dL Lactate 1.3 (0.7-2.1) mmol/L Calcium (8.4-10.2) mg/dL Total Bilirubin (0.2-1.3) mg/dL AST (14-36) IU/L ALT (<35) IU/L Alkaline Phosphatase (38-126) U/L Total Creatine Kinase (30-135) U/L CK-MB (CK-2) CK-MB (CK-2) Rel Index Troponin I (0.01-0.034) ng/mL NT-Pro-B Natriuret Pep 877 H (<450) pg/mL Total Protein (6.3-8.2) g/dL Albumin (3.5-5.0) g/dL Globulin (1.7-4.1) g/dL Albumin/Globulin Ratio (1.0-2.8) Procalcitonin (<0.5) ng/mL TSH 0.629 (0.47-4.68) uIU/mL Prolactin (3.0-18.6) ng/mL Urine Color Urine Appearance Urine pH (4.5-8.0) Ur Specific [place] (1.000-1.035) Urine Protein (Negative) Urine Glucose (UA) (Negative) g/dL Urine Ketones (NEGATIVE) Urine Occult Blood (Negative) Urine Nitrate (Negative) Urine Bilirubin (NEGATIVE) Urine Urobilinogen (0.2) E.U./dL Ur Leukocyte Esterase (NEGATIVE) Urine RBC (0-5/HPF) Urine WBC (0-5/HPF) Ur Squamous Epith Cells (0-5/HPF) Urine Bacteria (None) Ur Culture Indicated? U Opiates 300ng/mL cut (Negative) Ur Oxycodone Screen (Negative) Urine Methadone Screen (Negative) Ur Barbiturates Screen (Negative) U Tricyclic Antidepress (Negative) Ur Phencyclidine Scrn (Negative) Ur Amphetamines Screen (Negative) U Methamphetamines Scrn (Negative) Ur MDMA Scrn (Ecstasy) (Negative) U Benzodiazepines Scrn (Negative) Urine Cocaine Screen (Negative) U Marijuana (THC) Screen (Negative) Ethyl Alcohol ( - 10) mg/dL SARS-CoV-2 (PCR) (Negative) 06/20/21 06/20/21 06/20/21 Range/Units 16:27 16:41 16:41 WBC (4.5-11.0) X10^3/uL RBC (4.0-5.2) X10^6/uL Hgb (12.0-16.0) g/dL Hct (36-46) % MCV (80-100) fL MCH (26-34) PG MCHC (30-36) % RDW (11.6-14.8) % Plt Count (150-400) X10^3/uL Neut % (Auto) (50-75) % Lymph % (Auto) (25-40) % Early % (Auto) (3-14) % Eos % (Auto) (2-4) % Baso % (Auto) (0-2) % Neut # (Auto) (7694-2004) /uL Lymph # (Auto) (8585-8568) /uL Early # (Auto) (0-900) /uL Eos # (Auto) (0-450) /uL Baso # (Auto) (0-100) /uL Sodium (137-145) mmol/L Potassium (3.4-5.1) mmol/L Chloride (98-107) mmol/L Carbon Dioxide (22-32) mmol/L BUN (7-17) mg/dL Creatinine (0.52-1.04) mg/dL Estimated GFR (>60) mL/min BUN/Creatinine Ratio (6-22) Glucose (80-110) mg/dL Lactate (0.7-2.1) mmol/L Calcium (8.4-10.2) mg/dL Total Bilirubin (0.2-1.3) mg/dL AST (14-36) IU/L ALT (<35) IU/L Alkaline Phosphatase (38-126) U/L Total Creatine Kinase (30-135) U/L CK-MB (CK-2) CK-MB (CK-2) Rel Index Troponin I (0.01-0.034) ng/mL NT-Pro-B Natriuret Pep (<450) pg/mL Total Protein (6.3-8.2) g/dL Albumin (3.5-5.0) g/dL Globulin (1.7-4.1) g/dL Albumin/Globulin Ratio (1.0-2.8) Procalcitonin 0.05 (<0.5) ng/mL TSH (0.47-4.68) uIU/mL Prolactin (3.0-18.6) ng/mL Urine Color Urine Appearance Urine pH (4.5-8.0) Ur Specific [place] (1.000-1.035) Urine Protein (Negative) Urine Glucose (UA) (Negative) g/dL Urine Ketones (NEGATIVE) Urine Occult Blood (Negative) Urine Nitrate (Negative) Urine Bilirubin (NEGATIVE) Urine Urobilinogen (0.2) E.U./dL Ur Leukocyte Esterase (NEGATIVE) Urine RBC (0-5/HPF) Urine WBC (0-5/HPF) Ur Squamous Epith Cells (0-5/HPF) Urine Bacteria (None) Ur Culture Indicated? U Opiates 300ng/mL cut (Negative) Ur Oxycodone Screen (Negative) Urine Methadone Screen (Negative) Ur Barbiturates Screen (Negative) U Tricyclic Antidepress (Negative) Ur Phencyclidine Scrn (Negative) Ur Amphetamines Screen (Negative) U Methamphetamines Scrn (Negative) Ur MDMA Scrn (Ecstasy) (Negative) U Benzodiazepines Scrn (Negative) Urine Cocaine Screen (Negative) U Marijuana (THC) Screen (Negative) Ethyl Alcohol ( - 10) mg/dL SARS-CoV-2 (PCR) Negative Negative (Negative) 06/20/21 06/20/21 Range/Units 16:58 16:58 WBC (4.5-11.0) X10^3/uL RBC (4.0-5.2) X10^6/uL Hgb (12.0-16.0) g/dL Hct (36-46) % MCV (80-100) fL MCH (26-34) PG MCHC (30-36) % RDW (11.6-14.8) % Plt Count (150-400) X10^3/uL Neut % (Auto) (50-75) % Lymph % (Auto) (25-40) % Early % (Auto) (3-14) % Eos % (Auto) (2-4) % Baso % (Auto) (0-2) % Neut # (Auto) (0557-9352) /uL Lymph # (Auto) (9987-6979) /uL Early # (Auto) (0-900) /uL Eos # (Auto) (0-450) /uL Baso # (Auto) (0-100) /uL Sodium (137-145) mmol/L Potassium (3.4-5.1) mmol/L Chloride (98-107) mmol/L Carbon Dioxide (22-32) mmol/L BUN (7-17) mg/dL Creatinine (0.52-1.04) mg/dL Estimated GFR (>60) mL/min BUN/Creatinine Ratio (6-22) Glucose (80-110) mg/dL Lactate (0.7-2.1) mmol/L Calcium (8.4-10.2) mg/dL Total Bilirubin (0.2-1.3) mg/dL AST (14-36) IU/L ALT (<35) IU/L Alkaline Phosphatase (38-126) U/L Total Creatine Kinase (30-135) U/L CK-MB (CK-2) CK-MB (CK-2) Rel Index Troponin I (0.01-0.034) ng/mL NT-Pro-B Natriuret Pep (<450) pg/mL Total Protein (6.3-8.2) g/dL Albumin (3.5-5.0) g/dL Globulin (1.7-4.1) g/dL Albumin/Globulin Ratio (1.0-2.8) Procalcitonin (<0.5) ng/mL TSH (0.47-4.68) uIU/mL Prolactin (3.0-18.6) ng/mL Urine Color Yellow Urine Appearance Cloudy Urine pH 7.0 (4.5-8.0) Ur Specific [place] 1.010 (1.000-1.035) Urine Protein Negative (Negative) Urine Glucose (UA) Negative (Negative) g/dL Urine Ketones Negative (NEGATIVE) Urine Occult Blood 2+ H (Negative) Urine Nitrate Negative (Negative) Urine Bilirubin Negative (NEGATIVE) Urine Urobilinogen 1.0 (0.2) E.U./dL Ur Leukocyte Esterase 3+ H (NEGATIVE) Urine RBC 5-10/hpf H (0-5/HPF) Urine WBC >100/hpf H (0-5/HPF) Ur Squamous Epith Cells 1-5 /hpf (0-5/HPF) Urine Bacteria Many (>30) H (None) Ur Culture Indicated? Specimen cultured U Opiates 300ng/mL cut Positive H (Negative) Ur Oxycodone Screen Negative (Negative) Urine Methadone Screen Negative (Negative) Ur Barbiturates Screen Negative (Negative) U Tricyclic Antidepress Negative (Negative) Ur Phencyclidine Scrn Negative (Negative) Ur Amphetamines Screen Negative (Negative) U Methamphetamines Scrn Negative (Negative) Ur MDMA Scrn (Ecstasy) Negative (Negative) U Benzodiazepines Scrn Negative (Negative) Urine Cocaine Screen Negative (Negative) U Marijuana (THC) Screen Negative (Negative) Ethyl Alcohol ( - 10) mg/dL SARS-CoV-2 (PCR) (Negative) Imaging Data CT scan - head: Radiologist's Impression: [address] [address] [address] Scan Report Signed Patient: Elba Hicks MR#: [id number] : 1945 Acct:[id number] Age/Sex: 75 / F Date of Service: 06/20/21 Loc: ED Accession Number: [id number] ?? Procedure: CT head/brain wo con Ordering Provider: Celi Singh D.O. PROCEDURE:? CT HEAD/BRAIN WO CON ? INDICATIONS:? fever, ams ? TECHNIQUE:? Noncontrast 4.5 mm thick angled axial sections acquired from the foramen magnum to the vertex, with coronal and sagittal reformats.? For radiation dose reduction, the following was used:? automated exposure control, adjustment of mA and/or kV according to patient size.? ? COMPARISON:? [facility], CT, CT HEAD/BRAIN WO CON, 04/02/2021, 14:29. ? FINDINGS:? Image quality:? Fair. ? CSF spaces:? Basal cisterns are patent.? No extra-axial fluid collections.? Ventricles are normal in size and shape.? ? Brain:? No midline shift.? No intracranial masses or hemorrhage.? No area of hypodensity in a large vascular distribution to suggest acute infarction. Periventricular hypodensity consistent with chronic microvascular ischemic change. Age-related parenchymal loss. ? Skull and face:? Calvarium and visualized facial bones are intact, without suspicious lesions.? Hyperostosis frontalis. ? Sinuses:? Visualized sinuses and mastoids are clear.? ? IMPRESSION:? No acute intracranial abnormality. ? ? Dictated by: Satya Doan M.D. on 06/20/2021 at 17:28 ? ? Approved by: Satya Doan M.D. on 06/20/2021 at 17:30?? Chest x-ray: Radiologist's Impression: Launch?[address] [address] XRay Report Signed Patient: Elba Hicks MR#: [id number] : 1945 Acct:[id number] Age/Sex: 75 / F Date of Service: 06/20/21 Loc: ED Accession Number: [id number] ?? Procedure: XR chest 1V Ordering Provider: Celi Singh D.O. PROCEDURE:? XR CHEST 1V ? INDICATIONS:? fever ? TECHNIQUE:? One view of the chest was acquired.? ? COMPARISON:? [facility], CT, CT ANGIO HEAD AND NECK, 04/02/2021, 14:29. ? FINDINGS:? ? Surgical changes and devices:? Clips in the left upper abdomen. ? Lungs and pleura:? No consolidation.? No pleural effusions or pneumothorax.? ? Mediastinum:? Mediastinal contours appear normal.? Heart size is at the upper limits of normal.? ? Bones and chest wall:? No suspicious bony lesions.? Overlying soft tissues appear unremarkable.? ? IMPRESSION:? No consolidation identified. ? ? Dictated by: Satya Doan M.D. on 06/20/2021 at 17:50 ? ? Approved by: Satya Doan M.D. on 06/20/2021 at 17:53 pelvic xray: Radiologist's Impression: Launch?[address] [address] XRay Report Signed Patient: Elba Hicks MR#: [id number] : 1945 Acct:[id number] Age/Sex: 75 / F Date of Service: 06/20/21 Loc: ED Accession Number: [id number] ?? Procedure: XR pelvis 1-2V Ordering Provider: Celi Singh D.O. PROCEDURE:? XR PELVIS 1-2V ? INDICATIONS:? ? pelvic pain, left hip, no trauma history ? TECHNIQUE:? 2 view(s) of the pelvis acquired.? ? COMPARISON:? None. ? FINDINGS:? ? Bones:? No fractures or dislocations.? Bilateral hip arthroplasties.? Right femur ORIF.? No suspicious bony lesions.? ? Soft tissues:? Visualized bowel gas pattern is normal.? No suspicious soft tissue calcifications.? Rectal temperature probe.? ? IMPRESSION:? Bilateral hip arthroplasties.? No acute fractures identified. ? ? If clinically indicated CT bony pelvis could be performed for further evaluation.? ? Dictated by: Satya Doan M.D. on 06/20/2021 at 17:53 ? ? Approved by: Satya Doan M.D. on 06/20/2021 at 17:55?? ECG Data Attestation: I personally reviewed and interpreted this ECG as follows: Prior ECG tracings: available for review Interpretation: Sinus agree first-degree AV block it is premature supraventricular complexes. Rate 80 7p are 210 QRS 88 QTC 435. No acute ST changes appreciated. Prior from 04/02/2021 appears similar. [facility] Narrative Medical decision making narrative: This is a 75-year-old female who comes in with what is described as acute mental alteration from her nursing facility. Unclear exact time frame but last reported normal as some time before 10:00 a.m. today. Patient does not have clear lateralizing change she has fever and urine that is suspicious for infection. Patient was started on Levaquin, fluids were held and she was not given 30 cc/kilos bolus as she appears to likely be fluid overloaded in BNP is elevated. Patient has not been tachycardic or hypotensive. Fever was treated with Tylenol. She is given Levaquin secondary to having a penicillin allergy without waited clarify the allergy specifically. She is anticoagulated and had her anticoagulant changed the last 2 months secondary to possible TIA on Eliquis. Patient is accepted by the hospitalist. Discharge Plan Departure Patient Disposition: Admitted As Inpatient Clinical Impression: Acute UTI, Altered mental status, Elevated brain natriuretic peptide (BNP) level Admit Date/Time: 06/20/21 18:11
[2021-06-20 17:09] LABS: Appearance Urine UA CLOUDY; Bilirubin Urine UA NEGATIVE (NEGATIVE); Color Urine UA YELLOW; Glucose Urine UA NEGATIVE (Negative); Ketones Urine UA NEGATIVE (NEGATIVE); Leukocyte Esterase Urine UA 3+ (NEGATIVE); Nitrite Urine UA NEGATIVE (Negative); Occult Blood Urine UA 2+ (Negative); Protein Urine UA NEGATIVE (Negative)
[2021-06-20 17:09] LABS: Add Manual Diff / Slide Review NO; Basophils Absolute Auto 0 /uL (0-100); Basophils Percent Auto 0.3 % (0-2); Eosinophils Absolute Auto 0 /uL (0-450); Eosinophils Percent Auto 0.3 % (2-4); Hematocrit 33.3 % (36-46); Hemoglobin 11.1 g/dL (12.0-16.0); Lymphocytes Absolute Auto 800 /uL (1100-4500); Lymphocytes Percent Auto 7.2 % (25-40); Mean Corpuscular HGB Conc 33.2 % (30-36); Mean Corpuscular Hemoglobin 29.8 PG (26-34); Mean Corpuscular Volume 89.9 fL (80-100); Monocytes Absolute Auto 1000 /uL (0-900); Monocytes Percent Auto 9.2 % (3-14); Neutrophils Absolute Auto 9100 /uL (1500-7000); Platelet Count 265 X10^3/uL (150-400); Red Blood Cell Count 3.71 X10^6/uL (4.0-5.2); Red Cell Distribution Width 14.4 % (11.6-14.8)
[2021-06-20 17:18] LABS: Alanine Aminotransferase 12 IU/L (<35); Albumin 3.8 g/dL (3.5-5.0); Albumin Globulin Ratio 1.3 (1.0-2.8); Alkaline Phosphatase 70 U/L (38-126); Aspartate Aminotransferase 20 IU/L (14-36); BUN Creatinine Ratio 15.2 (6-22); Bilirubin Total 0.9 mg/dL (0.2-1.3); Blood Urea Nitrogen 14 mg/dL (7-17); Calcium 9.5 mg/dL (8.4-10.2); Carbon Dioxide 35 mmol/L (22-32); Chloride 98 mmol/L (98-107); Creatine Kinase 35 U/L (30-135); Estimated Glomerular Filt Rate 59.4 mL/min (>60); Ethanol (ETOH) < 10 mg/dL; Glucose 130 mg/dL (80-110); HEMOLYSIS < 15 (0-50); Lactate (Lactic Acid) 1.3 mmol/L (0.7-2.1); Potassium 3.3 mmol/L (3.4-5.1); Sodium 141 mmol/L (137-145); Total Protein 6.8 g/dL (6.3-8.2)
[2021-06-20 17:19] LABS: UR Morphine/Opiate cutoff 300 Positive (Negative); Ur Creatinine Normal (Normal); Ur Specific Gravity Normal (Normal); Urine Amphetamines Negative (Negative); Urine Barbiturates Negative (Negative); Urine Benzodiazepines Negative (Negative); Urine Cocaine Negative (Negative); Urine MDMA Negative (Negative); Urine Methadone Negative (Negative); Urine Methamphetamines Negative (Negative); Urine Oxycodone Negative (Negative); Urine Phencyclidine Negative (Negative); Urine Tetrahydrocannabinol Negative (Negative); Urine Tricyclic Antidepressant Negative (Negative); Urine pH Normal (Normal)
[2021-06-20 17:22] LABS: Bacteria Urine Many (>30); Culture Indicated Urine Specimen Cultured; RBC Urine 5-10/HPF (0-5/HPF); Squamous Epithelial Cell Urine 1-5 /HPF (0-5/HPF); WBC Urine >100/HPF (0-5/HPF)
[2021-06-20 17:27] LABS: NT-proBNP (BNP-Adult 18+) 877 pg/mL (<450)
[2021-06-20 17:29] LABS: Troponin I < 0.012 ng/mL (0.01-0.034)
[2021-06-20 17:30] LABS: COVID19 -Nasal RAPID Negative (Negative)
[2021-06-20] MEDS: SODIUM CHLORIDE 0.9% 1,000 ML 1000 ML IV (17:40)
[2021-06-20] MEDS: ACETAMINOPHEN 650 MG SUPP PR (17:41)
[2021-06-20] MEDS: levoFLOXacin 750 MG/150 ML PIGGYBACK 100 MG IV (17:41)
[2021-06-20 17:48] LABS: Thyroid Stimulating Hormone 0.629 uIU/mL (0.47-4.68)
[2021-06-20 18:04] LABS: Procalcitonin 0.05 ng/mL (<0.5)
[2021-06-20 18:06] LABS: COVID19 - ADMIT (NP swab/PCR) Negative (Negative)
[2021-06-20 20:32] LABS: Magnesium 2.2 mg/dL (1.6-2.3)
[2021-06-20 20:45] LABS: Troponin I 0.014 ng/mL (0.01-0.034)
[2021-06-20] MEDS: LACTATED RINGERS 1,000 ML 1000 ML IV (20:50)
[2021-06-20 20:56] LABS: HCO3 VBG 37 mmol/L (23-28); Oxygen Saturation VBG 95 % (70-75); PCO2 VBG 44.3 mmHg (45-50); PO2 VBG 67 mmHg (35-45); Total CO2 VBG 38 mmol/L (24-29); pH VBG 7.53 (7.33-7.43)
[2021-06-20] MEDS: ACETAMINOPHEN 325 MG TABLET 650 MG PO (21:44)
--- NOTE | 2021-06-20 21:56 | PM.HP.1 ---
History of Present Illness History of Present Illness Date Patient Seen: 06/20/21 Time Patient Seen: 20:03 Chief complaint: Altered mental status Narrative: This is a 75-year-old female who comes to emergency department with complaint of altered mental status.? Patient is having difficulty with speech and concern for possible stroke.? Patient was here in March for possible stroke and suspected have a TIA with failure on Eliquis and changed to Xarelto.? Per EMS they state that she also seemed to have quite foul odor to urine.? She was last seen normal sometime before 10:00 a.m, but exact time frame is unclear.? Patient is febrile here in the department.? She answers yes no to some questions but has difficulty getting her words out.? She does seem to be altered and does not clearly answer questions.? She does have a history of morbid obesity, atrial fibrillation major depression, hypertension with prior CVA/TIA and is currently at [facility].? Upon admit to the floor are patient continues to be confused she can answered her name and date of is confused as to why she was recently hospitalized and cannot recall any of the events of today that brought her in, she is unable to accurately participate in HPI or ROS due to encephalopathy. Patient's initial admitting vitals, she is febrile, and tachypneic temp of 102.2?, BP 159/70, HR 86, R 24, 95% on room air. She is noted to have ARLENE and normally sleeps with a CPAP and desats into the 80s while she sleeping normally. Patient appears in no distress and verbalizes no pain or discomfort. Yoder placed in ED urine output appropriate. Patient does not have a white count, but does have neutrophils 9100 and mono# 1000, HGB 11.1, HCT 33.3. Patient has mild hypokalemia potassium 3.3, HC03 of 35, glucose 130, GFR 59.4, BNP slightly elevated 877, T a SAH, procalcitonin are both normal. Patient's urine is positive for opiates as prescribed. Urinalysis was positive for bacteria and sent for culture. At the time of admit patient does meet SIRS and sepsis criteria, with a sofa score: 3. Patient's head CT was negative for any intracranial acute processes, chest x-ray was negative for any consolidation, hip x-ray noted bilateral arthroplasties without fractures visualized. VBG is pH 7.526, pCO2 44.3, PO2 67, HC03 36.7, TCO2 38, O2 sat 95%. Patient admitted for encephalopathy likely secondary to UTI resulting in hypokalemia. Patient History Medical History Arthritis Asthma Atrial fibrillation Essential hypertension Frequent falls GERD (gastroesophageal reflux disease) Insomnia Iron deficiency anemia Lymphedema Major depressive disorder, recurrent episode with anxious distress Morbid obesity with BMI of 45.0-49.9, adult Osteoarthritis Unstable gait Surgical History History of adjustable gastric banding History of bilateral hip replacements History of gastric bypass Family & Social History Family History Mother Stroke Dementia Father Autoimmune disease Social History: household members none Prior Living Arrangements Assisted Living Tobacco & Substance use: Smoking Status Former smoker alcohol intake frequency 0-2 drinks per day Substance Use Type does not use Meds Home Medications and Allergies Home Medications Medication Instructions Recorded Confirmed Type albuterol sulfate 90 mcg/actuation 2 inh INHALATION Q4HR PRN 04/02/21 06/20/21 History aerosol inhaler bisacodyl 10 mg rectal suppository 10 mg MA DAILY 04/02/21 06/20/21 History bisacodyl 5 mg tablet 10 mg PO DAILY PRN 04/02/21 06/20/21 History cholecalciferol (vitamin D3) 25 25 mcg PO DAILY 04/02/21 06/20/21 History mcg (1,000 unit) tablet (Vitamin D3) citalopram 20 mg tablet 20 mg PO DAILY 04/02/21 06/20/21 History cyanocobalamin (vitamin B-12) 1,000 mcg PO DAILY 04/02/21 06/20/21 History 1,000 mcg tablet (Vitamin B-12) diclofenac sodium 1 % topical gel 4 g TOPICAL BID 04/02/21 06/20/21 History fexofenadine 60 mg tablet 60 mg PO BID PRN 04/02/21 06/20/21 History fluticasone furoate 200 1 inh INHALATION DAILY 04/02/21 06/20/21 History mcg/actuation blister powder for inhalation (Arnuity Ellipta) furosemide 80 mg tablet 80 mg PO DAILY 04/02/21 06/20/21 History hydrocodone 5 mg-acetaminophen 325 1 tab PO Q4H PRN 04/02/21 06/20/21 History mg tablet hydrocodone 5 mg-acetaminophen 325 2 tab PO BEDTIME 04/02/21 04/02/21 History mg tablet hydrocortisone 1 % topical cream 1 applic TOPICAL Q6H PRN 04/02/21 06/20/21 History lorazepam 0.5 mg tablet 0.5 - 1 mg Q6H PRN 04/02/21 06/20/21 History magnesium hydroxide 400 mg/5 mL 400 mg PO DAILY PRN 04/02/21 06/20/21 History oral suspension (Milk of Magnesia) magnesium oxide 400 mg PO BID 04/02/21 06/20/21 History melatonin 3 mg tablet 6 mg PO BEDTIME 04/02/21 06/20/21 History metoprolol succinate 25 mg 25 mg PO DAILY 04/02/21 06/20/21 History tablet,extended release 24 hr montelukast 10 mg tablet 10 mg PO BEDTIME 04/02/21 06/20/21 History nystatin 100,000 unit/gram topical 1 applic TOPICAL Q6H PRN 04/02/21 06/20/21 History powder omeprazole 40 mg capsule,delayed 40 mg PO DAILY 04/02/21 06/20/21 History release polyethylene glycol 3350 17 gram 17 g PO DAILY PRN 04/02/21 06/20/21 History oral powder packet potassium chloride 20 mEq 20 meq PO DAILY 04/02/21 06/20/21 History tablet,extended release(part/cryst) vit no.95-ferrous 1 tab PO DAILY 04/02/21 06/20/21 History fumarate 28 mg-folic acid 800 mcg tablet () sennosides 8.6 mg tablet (senna) 8.6 mg PO DAILY PRN 04/02/21 06/20/21 History rivaroxaban 20 mg tablet (Xarelto) 20 mg PO DAILY #30 tab 04/03/21 06/20/21 Rx hydrocodone bitartrate 20 mg 20 mg PO DAILY 06/20/21 06/20/21 History tablet,crush resist,extended rel. 24hr Allergies Allergy/AdvReac Type Severity Reaction Status Date / Time codeine Allergy Verified 04/02/21 14:18 diphenhydramine Allergy Verified 04/02/21 14:18 [From Benadryl Allergy] Penicillins Allergy Verified 04/02/21 14:18 Review of Systems Review of Systems Narrative: Patient in adequately able to participate in ROS due to encephalopathy. Exam Vital Signs (past 8 hours): - 06/20/21 16:20 06/20/21 16:29 06/20/21 16:30 Temperature 102.1 F H Pulse Rate 89 89 90 Respiratory Rate 20 18 24 Blood Pressure 155/79 H Pulse Oximetry 97 93 06/20/21 16:31 06/20/21 17:00 06/20/21 17:29 Temperature Pulse Rate 92 H 90 91 H Respiratory Rate 24 23 24 Blood Pressure 155/79 H 163/86 H Pulse Oximetry 93 95 94 06/20/21 17:30 06/20/21 17:41 06/20/21 18:00 Temperature 102.1 F H 102.7 F H Pulse Rate 90 88 Respiratory Rate 24 Blood Pressure 160/77 H Pulse Oximetry 94 06/20/21 18:01 06/20/21 18:30 06/20/21 18:31 Temperature 102.7 F H 102.2 F H 102.2 F H Pulse Rate 87 87 86 Respiratory Rate Blood Pressure 197/89 H 159/70 H Pulse Oximetry 95 95 06/20/21 19:20 06/20/21 19:30 06/20/21 20:01 Temperature 98.2 F Pulse Rate 89 Respiratory Rate 28 H Blood Pressure 116/57 L Pulse Oximetry 95 96 95 06/20/21 21:01 Temperature 100.1 F H Pulse Rate Respiratory Rate Blood Pressure Pulse Oximetry Oxygen Delivery Method Room Air Oxygen Flow Rate 1 Narrative Exam Narrative: General:? Patient is a morbidly obese female, well-developed, well-nourished in no distress at this time. HEENT:? Normocephalic, atraumatic, extraocular muscles intact, oral pharynx is clear and mucous membranes are moist.? Neck is supple and symmetric, trachea is midline, no adenopathy, no thyroid enlargement, nontender, no masses palpated.? Negative for JVD Chest:? Normal AP diameter and contour without kyphoscoliosis, no nasal flaring, retractions, or tachypneic labored Lungs:? Auscultation of all lung lynn are clear without adventitious sounds, wheezes, rhonchi, or rales. Cardio:? S1 & S2 with regular rate and rhythm without rubs, or gallops, no carotid bruit, no cardiac pulsations present, +3 systolic whooshing murmur heard over right 2nd/3rd intercostal. Abdomen:? Soft nontender.? Bowel sounds are present in all 4 quadrants without guarding or rebound, no CVA tenderness. Musculoskeletal:? Muscle strength and tone are equal below normal, but are base line for the patient, no deformity, crepitus, effusions, cyanosis, or clubbing present.? Positive nonpitting equal bilateral edema to lower extremities. Decreased range of motion due to weight and muscle weakness (baseline) intact radial and pedal pulses are normal. Skin:? Warm dry and intact, noted superficial skin tear with minimal bloody drainage to the left lower anterior calf, without erythema or tenderness.? Neuro:? Alert and orientated x1, strength is +5/5 in all extremities, sensation to touch intact, no gross deficits noted of cranial nerves. Psych:? Patient is confused other than person and date of , disorientated unable to complete sentences. Admitting RN noted that the patient was significantly unresponsive except for to painful stimuli upon admit, and that at least at this time she is awake and verbally responsive although answers are confused and muddled words. Objective Labs Result Diagrams: 06/20/21 16:27 06/20/21 16:27 Labs: Laboratory Results - last 24 hr 06/20/21 06/20/21 06/20/21 16:27 16:27 16:27 WBC 11.0 RBC 3.71 L Hgb 11.1 L Hct 33.3 L MCV 89.9 MCH 29.8 MCHC 33.2 RDW 14.4 Plt Count 265 Neut % (Auto) 83.0 H Lymph % (Auto) 7.2 L [place] % (Auto) 9.2 Eos % (Auto) 0.3 L Baso % (Auto) 0.3 Neut # (Auto) 9100 H Lymph # (Auto) 800 L [place] # (Auto) 1000 H Eos # (Auto) 0 Baso # (Auto) 0 VBG pH VBG pCO2 VBG pO2 VBG HCO3 VBG Total CO2 VBG O2 Saturation VBG Base Excess Sodium 141 Potassium 3.3 L Chloride 98 Carbon Dioxide 35 H BUN 14 Creatinine 0.92 Estimated GFR 59.4 L BUN/Creatinine Ratio 15.2 Glucose 130 H Lactate Calcium 9.5 Phosphorus Magnesium Total Bilirubin 0.9 AST 20 ALT 12 Alkaline Phosphatase 70 Total Creatine Kinase 35 CK-MB (CK-2) TNP CK-MB (CK-2) Rel Index TNP Troponin I < 0.012 NT-Pro-B Natriuret Pep Total Protein 6.8 Albumin 3.8 Globulin 3.0 Albumin/Globulin Ratio 1.3 Procalcitonin TSH Prolactin 6.0 Urine Color Urine Appearance Urine pH Ur Specific [place] Urine Protein Urine Glucose (UA) Urine Ketones Urine Occult Blood Urine Nitrate Urine Bilirubin Urine Urobilinogen Ur Leukocyte Esterase Urine RBC Urine WBC Ur Squamous Epith Cells Urine Bacteria Ur Culture Indicated? U Opiates 300ng/mL cut Ur Oxycodone Screen Urine Methadone Screen Ur Barbiturates Screen U Tricyclic Antidepress Ur Phencyclidine Scrn Ur Amphetamines Screen U Methamphetamines Scrn Ur MDMA Scrn (Ecstasy) U Benzodiazepines Scrn Urine Cocaine Screen U Marijuana (THC) Screen Ethyl Alcohol < 10 SARS-CoV-2 (PCR) 06/20/21 06/20/21 06/20/21 16:27 16:27 16:27 WBC RBC Hgb Hct MCV MCH MCHC RDW Plt Count Neut % (Auto) Lymph % (Auto) [place] % (Auto) Eos % (Auto) Baso % (Auto) Neut # (Auto) Lymph # (Auto) [place] # (Auto) Eos # (Auto) Baso # (Auto) VBG pH VBG pCO2 VBG pO2 VBG HCO3 VBG Total CO2 VBG O2 Saturation VBG Base Excess Sodium Potassium Chloride Carbon Dioxide BUN Creatinine Estimated GFR BUN/Creatinine Ratio Glucose Lactate 1.3 Calcium Phosphorus Magnesium Total Bilirubin AST ALT Alkaline Phosphatase Total Creatine Kinase CK-MB (CK-2) CK-MB (CK-2) Rel Index Troponin I NT-Pro-B Natriuret Pep 877 H Total Protein Albumin Globulin Albumin/Globulin Ratio Procalcitonin TSH 0.629 Prolactin Urine Color Urine Appearance Urine pH Ur Specific [place] Urine Protein Urine Glucose (UA) Urine Ketones Urine Occult Blood Urine Nitrate Urine Bilirubin Urine Urobilinogen Ur Leukocyte Esterase Urine RBC Urine WBC Ur Squamous Epith Cells Urine Bacteria Ur Culture Indicated? U Opiates 300ng/mL cut Ur Oxycodone Screen Urine Methadone Screen Ur Barbiturates Screen U Tricyclic Antidepress Ur Phencyclidine Scrn Ur Amphetamines Screen U Methamphetamines Scrn Ur MDMA Scrn (Ecstasy) U Benzodiazepines Scrn Urine Cocaine Screen U Marijuana (THC) Screen Ethyl Alcohol SARS-CoV-2 (PCR) 06/20/21 06/20/21 06/20/21 16:27 16:41 16:41 WBC RBC Hgb Hct MCV MCH MCHC RDW Plt Count Neut % (Auto) Lymph % (Auto) [place]roy[place] % (Auto) Eos % (Auto) Baso % (Auto) Neut # (Auto) Lymph # (Auto) [place] # (Auto) Eos # (Auto) Baso # (Auto) VBG pH VBG pCO2 VBG pO2 VBG HCO3 VBG Total CO2 VBG O2 Saturation VBG Base Excess Sodium Potassium Chloride Carbon Dioxide BUN Creatinine Estimated GFR BUN/Creatinine Ratio Glucose Lactate Calcium Phosphorus Magnesium Total Bilirubin AST ALT Alkaline Phosphatase Total Creatine Kinase CK-MB (CK-2) CK-MB (CK-2) Rel Index Troponin I NT-Pro-B Natriuret Pep Total Protein Albumin Globulin Albumin/Globulin Ratio Procalcitonin 0.05 TSH Prolactin Urine Color Urine Appearance Urine pH Ur Specific [place] Urine Protein Urine Glucose (UA) Urine Ketones Urine Occult Blood Urine Nitrate Urine Bilirubin Urine Urobilinogen Ur Leukocyte Esterase Urine RBC Urine WBC Ur Squamous Epith Cells Urine Bacteria Ur Culture Indicated? U Opiates 300ng/mL cut Ur Oxycodone Screen Urine Methadone Screen Ur Barbiturates Screen U Tricyclic Antidepress Ur Phencyclidine Scrn Ur Amphetamines Screen U Methamphetamines Scrn Ur MDMA Scrn (Ecstasy) U Benzodiazepines Scrn Urine Cocaine Screen U Marijuana (THC) Screen Ethyl Alcohol SARS-CoV-2 (PCR) Negative Negative 06/20/21 06/20/21 06/20/21 16:58 16:58 20:10 WBC RBC Hgb Hct MCV MCH MCHC RDW Plt Count Neut % (Auto) Lymph % (Auto) Arroyo % (Auto) Eos % (Auto) Baso % (Auto) Neut # (Auto) Lymph # (Auto) [place]royo # (Auto) Eos # (Auto) Baso # (Auto) VBG pH VBG pCO2 VBG pO2 VBG HCO3 VBG Total CO2 VBG O2 Saturation VBG Base Excess Sodium Potassium Chloride Carbon Dioxide BUN Creatinine Estimated GFR BUN/Creatinine Ratio Glucose Lactate Calcium Phosphorus 3.0 Magnesium 2.2 Total Bilirubin AST ALT Alkaline Phosphatase Total Creatine Kinase CK-MB (CK-2) CK-MB (CK-2) Rel Index Troponin I 0.014 NT-Pro-B Natriuret Pep Total Protein Albumin Globulin Albumin/Globulin Ratio Procalcitonin TSH Prolactin Urine Color Yellow Urine Appearance Cloudy Urine pH 7.0 Ur Specific [place] 1.010 Urine Protein Negative Urine Glucose (UA) Negative Urine Ketones Negative Urine Occult Blood 2+ H Urine Nitrate Negative Urine Bilirubin Negative Urine Urobilinogen 1.0 Ur Leukocyte Esterase 3+ H Urine RBC 5-10/hpf H Urine WBC >100/hpf H Ur Squamous Epith Cells 1-5 /hpf Urine Bacteria Many (>30) H Ur Culture Indicated? Specimen cultured U Opiates 300ng/mL cut Positive H Ur Oxycodone Screen Negative Urine Methadone Screen Negative Ur Barbiturates Screen Negative U Tricyclic Antidepress Negative Ur Phencyclidine Scrn Negative Ur Amphetamines Screen Negative U Methamphetamines Scrn Negative Ur MDMA Scrn (Ecstasy) Negative U Benzodiazepines Scrn Negative Urine Cocaine Screen Negative U Marijuana (THC) Screen Negative Ethyl Alcohol SARS-CoV-2 (PCR) 06/20/21 20:10 WBC RBC Hgb Hct MCV MCH MCHC RDW Plt Count Neut % (Auto) Lymph % (Auto) Arroyo % (Auto) Eos % (Auto) Baso % (Auto) Neut # (Auto) Lymph # (Auto) [place]royo # (Auto) Eos # (Auto) Baso # (Auto) VBG pH 7.53 H VBG pCO2 44.3 L VBG pO2 67 H VBG HCO3 37 H VBG Total CO2 38 H VBG O2 Saturation 95 H VBG Base Excess 14.0 H Sodium Potassium Chloride Carbon Dioxide BUN Creatinine Estimated GFR BUN/Creatinine Ratio Glucose Lactate Calcium Phosphorus Magnesium Total Bilirubin AST ALT Alkaline Phosphatase Total Creatine Kinase CK-MB (CK-2) CK-MB (CK-2) Rel Index Troponin I NT-Pro-B Natriuret Pep Total Protein Albumin Globulin Albumin/Globulin Ratio Procalcitonin TSH Prolactin Urine Color Urine Appearance Urine pH Ur Specific [place] Urine Protein Urine Glucose (UA) Urine Ketones Urine Occult Blood Urine Nitrate Urine Bilirubin Urine Urobilinogen Ur Leukocyte Esterase Urine RBC Urine WBC Ur Squamous Epith Cells Urine Bacteria Ur Culture Indicated? U Opiates 300ng/mL cut Ur Oxycodone Screen Urine Methadone Screen Ur Barbiturates Screen U Tricyclic Antidepress Ur Phencyclidine Scrn Ur Amphetamines Screen U Methamphetamines Scrn Ur MDMA Scrn (Ecstasy) U Benzodiazepines Scrn Urine Cocaine Screen U Marijuana (THC) Screen Ethyl Alcohol SARS-CoV-2 (PCR) Assessment & Plan Assessment & Plan narrative: Patient is a 75-year-old female Elba Hicks has been admitted for encephalopathy likely secondary to UTI with resulting hypokalemia. Has a history of atrial fibrillation and is on Eliquis, hypertension, asthma, insomnia, major depressive disorder, iron deficiency anemia, abnormal an unstable gait/mobility with frequent falls, lymphedema, hypomagnesia, GERD, morbid obesity, and osteoarthritis. ?? ? 1. Encephalopathy acute likely the result of urinary tract infection, acute, in the setting of frequent UTIs, resulting in hypokalemia, acute, present on admission -patient meets SIRS/sepsis criteria upon admit to the floor, sofa score 3 -ED began fluid rehydration after 200 cc that patient began to have pulmonary wheezing, fluids were stopped. Ordered 1000 cc bolus LR upon admit. Monitor for fluid overload. Minimal rehydration due to risk of fluid overload and respiratory complications. -patient received a dose of levofloxacin in ED due to documented PCN allergy. Had RN speak to [facility] allergy to penicillin unknown, only documented as moderate, will provide Rocephin 2 g followed by Rocephin 1 g Q 24 hours patient to be monitored for anaphylaxis, or sensitivity intolerability. -Yoder placed in ED strict I&Os, notify provider with urinary output less than 0.5 cc/kilogram 117 kg per hour. -holding patient's opiates while confused and disorientated -I found the patient to be more moderately cognitively confused over last admit, with NO obivous neurological deficit, and she demonstrated no slurred speech. She has a low-grade fever and recent history of frequent UTIs.?I am unable to rule out stroke without an MR, due to obesity Head CT continues to be negative.? Likely encephalopathy due to UTI, I do not believe this is a stroke. ? Confounding factor may also be the amount of [place] the patient takes on a daily basis for her chronic pain. I am holding her [place] at this time, due to confusion. Monitor patient overnight. U/A culture pending, PT evaluation tomorrow. -potassium 3.3-ordered 20 mEq K rider 2. Atrial fibrillation, with chronic Eliquis use, essential hypertension, chronic, present on admission -telemed, continue patient's Eliquis, metoprolol 3. Asthma, chronic, present on admission -continue patient's albuterol 4. Major depressive disorder with anxiety, chronic, present on admission -patient denies suicidal ideation, continue patient's Ativan and citalopram 5. Osteoarthritis of the hips, knees, shoulders, chronic, present on admission -Continue [place] after 24 hr evaluation (r/o oversedation), Voltaren 6. Bilateral lower extremity lymphedema, acute on chronic, present on admission -SCDs continue patient's Lasix, magnesium, potassium 7. GERD, chronic, present on admission -Continue patient's omeprazole 8. Insomnia, chronic, present on admission -Continue patient's melatonin at bedtime 9. Morbid obesity as evidence by BMI 45.7 kg, acute on chronic, present on admission -consideration will be given for dietary counseling Code status:? Limited code no intubation, CPR, or cardioversion Surrogate decision maker: Todd WATSON PCR:? Negative DVT/VTE prophylaxis:? SCDs only, patient on Eliquis Estimated length of stay:? Less than 2 midnights I have utilized all available immediate resources to obtain, update, or review the patient's current medications. I confirmed that the patient's advanced care plan is present, Code status is documented and/or surrogate decision maker is listed in the patient's medical record. Time Spent With Patient Critical Care time: I spent a total of [] minutes of critical care time on this patient's care today; this time is exclusive of procedural time.
[2021-06-20] MEDS: MELATONIN 3 MG TABLET 6 MG PO (22:35)
[2021-06-20] MEDS: LACTATED RINGERS 1,000 ML 40 ML IV (22:35)
[2021-06-20] MEDS: cefTRIAXone 2,000 MG in SODIUM CHLORIDE 0.9% 100 ML 200 ML IV (22:35)
[2021-06-20] MEDS: POTASSIUM CHLORIDE IN WATER 10 MEQ/100 ML PIGGYBACK 100 MEQ IV (23:55)
[2021-06-21] VITALS (24 sets, daily range): BP systolic 92–151; BP diastolic 52–85; PULSE 68–106; RESP 14–20; TEMP 36.4–37.6; O2SAT 93–99
[2021-06-21] MEDS: NITROGLYCERIN 0.4 MG SL TAB SL (00:19)
[2021-06-21] MEDS: POTASSIUM CHLORIDE IN WATER 10 MEQ/100 ML PIGGYBACK 100 MEQ IV ×3 (00:51→07:56)
[2021-06-21 01:01] LABS: Troponin I 0.017 ng/mL (0.01-0.034)
[2021-06-21] MEDS: ACETAMINOPHEN 325 MG TABLET 650 MG PO ×4 (03:18→23:29)
--- NOTE | 2021-06-21 03:50 | PC.NURSE ---
at strat od shift patient c/o Heart pain pt having difficulty expressing what type of pain, but answered yes to constant cramping pressure, EKG and troponin obtatined, Nitro X2 administered whicch resolved c/o pain. pt is emotional and frequently asks for help but unable to tell you what is needed. and repositining helps at times. mild temop 99.0 resolved with deep breaths and cooling measures. poole patent of cloudy rosanne UOP with particulate . Prt continued to c/o generalized discomfort and crying, medicated with tylenol 650 and ativan 0.5 mg po
[2021-06-21 06:05] LABS: Add Manual Diff / Slide Review NO; Basophils Absolute Auto 0 /uL (0-100); Basophils Percent Auto 0.1 % (0-2); Eosinophils Absolute Auto 0 /uL (0-450); Eosinophils Percent Auto 0.4 % (2-4); Hematocrit 28.6 % (36-46); Hemoglobin 9.4 g/dL (12.0-16.0); Lymphocytes Absolute Auto 1000 /uL (1100-4500); Lymphocytes Percent Auto 10.1 % (25-40); Mean Corpuscular Hemoglobin 29.7 PG (26-34); Monocytes Absolute Auto 1400 /uL (0-900); Monocytes Percent Auto 14.4 % (3-14); Neutrophils Absolute Auto 7200 /uL (1500-7000); Platelet Count 216 X10^3/uL (150-400); Red Blood Cell Count 3.18 X10^6/uL (4.0-5.2); Red Cell Distribution Width 14.3 % (11.6-14.8); White Blood Cell Count 9.6 X10^3/uL (4.5-11.0)
[2021-06-21 06:19] LABS: Alanine Aminotransferase 13 IU/L (<35); Albumin 3.3 g/dL (3.5-5.0); Albumin Globulin Ratio 1.3 (1.0-2.8); Alkaline Phosphatase 55 U/L (38-126); Aspartate Aminotransferase 25 IU/L (14-36); BUN Creatinine Ratio 15.6 (6-22); Bilirubin Total 0.8 mg/dL (0.2-1.3); Blood Urea Nitrogen 14 mg/dL (7-17); Calcium 8.8 mg/dL (8.4-10.2); Carbon Dioxide 35 mmol/L (22-32); Chloride 98 mmol/L (98-107); Estimated Glomerular Filt Rate > 60.0 mL/min (>60); Globulin 2.6 g/dL (1.7-4.1); Glucose 105 mg/dL (80-110); HEMOLYSIS < 15 (0-50); Potassium 2.9 mmol/L (3.4-5.1); Sodium 138 mmol/L (137-145); Total Protein 5.9 g/dL (6.3-8.2)
[2021-06-21 07:01] LABS: Troponin I 0.019 ng/mL (0.01-0.034)
[2021-06-21] MEDS: BUDESONIDE 0.5 MG/2 ML NEB INH (07:23)
[2021-06-21] MEDS: CITALOPRAM 10 MG TABLET 20 MG PO (08:46)
[2021-06-21] MEDS: METOPROLOL ER 25 MG TABLET PO (08:46)
[2021-06-21] MEDS: RIVAROXABAN 10 MG TABLET 20 MG PO (08:47)
[2021-06-21] MEDS: PANTOPRAZOLE DR 40 MG TABLET PO (08:47)
[2021-06-21] MEDS: POTASSIUM CHLORIDE 20 MEQ TAB 40 MEQ PO ×2 (08:51→12:20)
--- NOTE | 2021-06-21 09:03 | CM.DANOTE ---
Addendum entered by Natalie Flores R.N. 06/21/21 12:27: Called [facility] nurse. Called her on her cell phone, for attempted the nurse phone at the facility with no answer. Let her know that patient could be discharged tomorrow, and she would come over and evaluate. Spoke to nurseAnabela. who called back from [facility] as well, and updated her. Original Note: DCP: Case received, EMR reviewed and met with patient. Introduced self and role. Was able to obtain information regarding patient's baseline activity level at [facility]. DCP assessment completed with information currently available. Patient is a 75 year old female who admitted yesterday afternoon to the care of the hospitalist team. PCP: LUC Bruce. Payer: confirmed: [employer]. Patient came to the hospital via ambulance secondary to having altered mental status. Patient resides at [facility]. She holds current diagnosis of UTI, enchephalopathy, hypokalemia. Met with patient in her room. She was sitting up in bed getting ready to have breakfast. She had oxygen in place. She was alert, and able to tell this maintenance planner where she lives. She resides in [facility], upstairs apartment at [facility]. She stated, she is mostly in her wheelchair. She indicated that they deliver her meals, help her with showers and toileting at her baseline. Confirmed that she has a son named Todd Garcia who is her medical POA, and lives in [place]. She has given permission verbally, to give him information as needed. P: DCP to continue to follow. Patient should be able to return back to [facility] when she is medically stable. Natalie Flores RN/Grounds And Nursery Specialist Discharge Planning/Care Management CM Discharge Assessment Start: 06/21/21 09:02 Freq: Status: Active Protocol: Document 06/21/21 09:02 (Rec: 06/21/21 09:03 [id number]) Discharge Planning Assessment Assigned Rn Office Natalie Flores RN/Grounds And Nursery Specialist Advance Directives? Yes: needs to be scanned please Advance Directives on File No History Provided By Patient,Medical Record Prior Living Arrangements Assisted Living Household Members none Type of transporation used prior to Relies on Others admit Facility Name Admitted From: [facility] Independent with ADL's Yes Is patient alert and oriented? Yes Needs Assistance With Bathing,Grooming,Meal Prep, Toileting,Managing Medications ,Home Chores / Shopping Caregiver for Another No DME Already Rented / Owned Wheelchair Barriers to Discharge No Discharge Plan Assisted Living Facility Transportation Arrangement Facility Referrals Initiated None needed Whiteboard Updated in Patient Room with Yes name and ext. # of Rn Office Review Status In Process Next Review Type Continued Stay Review
[2021-06-21] MEDS: LORazepam 0.5 MG TABLET PO ×2 (10:10→16:46)
[2021-06-21] MEDS: DICLOFENAC 1% GEL 100 GM 1 APPLIC TOP (10:12)
[2021-06-21 10:31] LABS: Acinetobacter baumannii Not Detected (Not Detect); Enterobacteriaceae species Not Detected (Not Detect); Enterococcus species Not Detected (Not Detect); KPC (carbapenem-resist gene) Not Detected (Not Detect); Listeria monocytogenes Not Detected (Not Detect); Methicillin-resistant gene Not Detected (Not Detect); Staphylococcus species Not Detected (Not Detect); Streptococcus agalactiae (Gr B Not Detected (Not Detect); Streptococcus pneumonia Not Detected (Not Detect); Streptococcus pyogenes (Gr A) Not Detected (Not Detect); Streptococcus species Not Detected (Not Detect); Vancomycin-rest genes A/B Not Detected (Not Detect)
[2021-06-21 10:32] LABS: Candida albicans Not Detected (Not Detect); Candida glabrata Not Detected (Not Detect); Candida krusei Not Detected (Not Detect); Candida parapsilosis Not Detected (Not Detect); Candida tropicalis Not Detected (Not Detect); E. coli Not Detected (Not Detect); Enterobacter cloacae complex Not Detected (Not Detect); Haemophilus influenzae Not Detected (Not Detect); Neisseria meningitidis Not Detected (Not Detect); Proteus species Not Detected (Not Detect); Pseudomonas aeruginosa Not Detected (Not Detect); Serratia marcescens Not Detected (Not Detect)
--- NOTE | 2021-06-21 10:39 | PC.NURSE ---
Addendum entered by Katiuska Nieves R.N. 06/21/21 10:48: Tele d/c'd per MD order. Original Note: Patient A/O x 3. Resting in bed, VSS, titrated off O2 to Room Air, patient remains on continuous pulse ox, 96%, lungs CTA. Yoder draining bedside, patient repositioned for comfort, patient appears anxious r/t situation and pain. C/o bilateral should pain, PRN tylenol administered and ointment applied, patient ordered 0.5mg Ativan, patient accepts. Refusing SCD's d/t pain. Son is currently bedside. Patient denies further needs, call light in reach.
[2021-06-21 11:12] LABS: HCO3 VBG 33 mmol/L (23-28); Oxygen Saturation VBG 91 % (70-75); PCO2 VBG 41.7 mmHg (45-50); PO2 VBG 55 mmHg (35-45); Total CO2 VBG 35 mmol/L (24-29); pH VBG 7.51 (7.33-7.43)
--- NOTE | 2021-06-21 11:50 | P.PN_ITS ---
Subjective Subjective Date Patient Seen: 06/21/21 Time Patient Seen: 11:00 Interval history: Today she is feeling much improved. She does remember having some burning with urination. She feels nearly back to her normal self, but weaker than usual. Exam Vital Signs (past 8 hours): - 06/21/21 03:55 06/21/21 04:00 06/21/21 04:58 Temperature 99.7 F H Pulse Rate 68 70 Respiratory Rate 18 Blood Pressure 111/68 123/72 Pulse Oximetry 97 99 06/21/21 07:23 06/21/21 08:00 06/21/21 08:18 Temperature 98.0 F Pulse Rate 75 73 Respiratory Rate 14 16 Blood Pressure 120/67 Pulse Oximetry 99 98 98 06/21/21 08:46 Temperature Pulse Rate 73 Respiratory Rate Blood Pressure 120/67 Pulse Oximetry Oxygen Delivery Method Room Air,Nasal Cannula Oxygen Flow Rate 4 Narrative Exam Narrative: General: no acute distress Lungs:? clear bilaterally Cardio:? 2/6 murmur Abdomen:? Soft nontender. no organomegaly Neuro:? alert and oriented, slow speech, much more alert than previously Objective Labs Result Diagrams: 06/21/21 05:30 06/21/21 05:30 Labs: Laboratory Results - last 24 hr 05/21/21 06/20/21 06/20/21 17:54 16:27 16:27 WBC 11.0 RBC 3.71 L Hgb 11.1 L Hct 33.3 L MCV 89.9 MCH 29.8 MCHC 33.2 RDW 14.4 Plt Count 265 Neut % (Auto) 83.0 H Lymph % (Auto) 7.2 L [place] % (Auto) 9.2 Eos % (Auto) 0.3 L Baso % (Auto) 0.3 Neut # (Auto) 9100 H Lymph # (Auto) 800 L [place] # (Auto) 1000 H Eos # (Auto) 0 Baso # (Auto) 0 VBG pH VBG pCO2 VBG pO2 VBG HCO3 VBG Total CO2 VBG O2 Saturation VBG Base Excess Sodium Potassium Chloride Carbon Dioxide BUN Creatinine Estimated GFR BUN/Creatinine Ratio Glucose Lactate Calcium Phosphorus Magnesium Total Bilirubin AST ALT Alkaline Phosphatase Total Creatine Kinase 35 CK-MB (CK-2) TNP CK-MB (CK-2) Rel Index TNP Troponin I < 0.012 NT-Pro-B Natriuret Pep Total Protein Albumin Globulin Albumin/Globulin Ratio Procalcitonin TSH Prolactin Urine Color Urine Appearance Urine pH Ur Specific [place] Urine Protein Urine Glucose (UA) Urine Ketones Urine Occult Blood Urine Nitrate Urine Bilirubin Urine Urobilinogen Ur Leukocyte Esterase Urine RBC Urine WBC Ur Squamous Epith Cells Urine Bacteria Ur Culture Indicated? U Opiates 300ng/mL cut Ur Oxycodone Screen Urine Methadone Screen Ur Barbiturates Screen U Tricyclic Antidepress Ur Phencyclidine Scrn Ur Amphetamines Screen U Methamphetamines Scrn Ur MDMA Scrn (Ecstasy) U Benzodiazepines Scrn Urine Cocaine Screen U Marijuana (THC) Screen Ethyl Alcohol A. baumannii (PCR) Not detected Melly albicans (PCR) Not detected C. glabrata (PCR) Not detected C. krusei (PCR) Not detected C. parapsilosis (PCR) Not detected C. tropicalis (PCR) Not detected SARS-CoV-2 (PCR) Enterobacteriac sp PCR Not detected E. cloacae complex PCR Not detected Enterococcus sp PCR Not detected E. coli (PCR) Not detected H. influenzae (PCR) Not detected Klebsiella oxytoca PCR Not detected Klebsiella pneumoniae Not detected List. monocytogenes PCR Not detected N. meningitidis (PCR) Not detected Proteus species (PCR) Not detected Serratia marcescens PCR Not detected Staphylococcus sp PCR Not detected Staph aureus (PCR) Not detected mecA-Methicil Res Gene Not detected Streptococcus sp PCR Not detected Group A Strep (PCR) Not detected Strep agalactiae (PCR) Not detected Strep pneumoniae (PCR) Not detected P. aeruginosa (PCR) Not detected Elie/B-Vanco Res Genes Not detected KPC-Carbap Res Gene PCR Not detected 06/20/21 06/20/21 06/20/21 16:27 16:27 16:27 WBC RBC Hgb Hct MCV MCH MCHC RDW Plt Count Neut % (Auto) Lymph % (Auto) [place] % (Auto) Eos % (Auto) Baso % (Auto) Neut # (Auto) Lymph # (Auto) [place] # (Auto) Eos # (Auto) Baso # (Auto) VBG pH VBG pCO2 VBG pO2 VBG HCO3 VBG Total CO2 VBG O2 Saturation VBG Base Excess Sodium 141 Potassium 3.3 L Chloride 98 Carbon Dioxide 35 H BUN 14 Creatinine 0.92 Estimated GFR 59.4 L BUN/Creatinine Ratio 15.2 Glucose 130 H Lactate 1.3 Calcium 9.5 Phosphorus Magnesium Total Bilirubin 0.9 AST 20 ALT 12 Alkaline Phosphatase 70 Total Creatine Kinase CK-MB (CK-2) CK-MB (CK-2) Rel Index Troponin I NT-Pro-B Natriuret Pep Total Protein 6.8 Albumin 3.8 Globulin 3.0 Albumin/Globulin Ratio 1.3 Procalcitonin TSH 0.629 Prolactin 6.0 Urine Color Urine Appearance Urine pH Ur Specific [place] Urine Protein Urine Glucose (UA) Urine Ketones Urine Occult Blood Urine Nitrate Urine Bilirubin Urine Urobilinogen Ur Leukocyte Esterase Urine RBC Urine WBC Ur Squamous Epith Cells Urine Bacteria Ur Culture Indicated? U Opiates 300ng/mL cut Ur Oxycodone Screen Urine Methadone Screen Ur Barbiturates Screen U Tricyclic Antidepress Ur Phencyclidine Scrn Ur Amphetamines Screen U Methamphetamines Scrn Ur MDMA Scrn (Ecstasy) U Benzodiazepines Scrn Urine Cocaine Screen U Marijuana (THC) Screen Ethyl Alcohol < 10 A. baumannii (PCR) Melly albicans (PCR) C. glabrata (PCR) C. krusei (PCR) C. parapsilosis (PCR) C. tropicalis (PCR) SARS-CoV-2 (PCR) Enterobacteriac sp PCR E. cloacae complex PCR Enterococcus sp PCR E. coli (PCR) H. influenzae (PCR) Klebsiella oxytoca PCR Klebsiella pneumoniae List. monocytogenes PCR N. meningitidis (PCR) Proteus species (PCR) Serratia marcescens PCR Staphylococcus sp PCR Staph aureus (PCR) mecA-Methicil Res Gene Streptococcus sp PCR Group A Strep (PCR) Strep agalactiae (PCR) Strep pneumoniae (PCR) P. aeruginosa (PCR) Elie/B-Vanco Res Genes KPC-Carbap Res Gene PCR 06/20/21 06/20/21 06/20/21 16:27 16:27 16:41 WBC RBC Hgb Hct MCV MCH MCHC RDW Plt Count Neut % (Auto) Lymph % (Auto) [place] % (Auto) Eos % (Auto) Baso % (Auto) Neut # (Auto) Lymph # (Auto) [place] # (Auto) Eos # (Auto) Baso # (Auto) VBG pH VBG pCO2 VBG pO2 VBG HCO3 VBG Total CO2 VBG O2 Saturation VBG Base Excess Sodium Potassium Chloride Carbon Dioxide BUN Creatinine Estimated GFR BUN/Creatinine Ratio Glucose Lactate Calcium Phosphorus Magnesium Total Bilirubin AST ALT Alkaline Phosphatase Total Creatine Kinase CK-MB (CK-2) CK-MB (CK-2) Rel Index Troponin I NT-Pro-B Natriuret Pep 877 H Total Protein Albumin Globulin Albumin/Globulin Ratio Procalcitonin 0.05 TSH Prolactin Urine Color Urine Appearance Urine pH Ur Specific [place] Urine Protein Urine Glucose (UA) Urine Ketones Urine Occult Blood Urine Nitrate Urine Bilirubin Urine Urobilinogen Ur Leukocyte Esterase Urine RBC Urine WBC Ur Squamous Epith Cells Urine Bacteria Ur Culture Indicated? U Opiates 300ng/mL cut Ur Oxycodone Screen Urine Methadone Screen Ur Barbiturates Screen U Tricyclic Antidepress Ur Phencyclidine Scrn Ur Amphetamines Screen U Methamphetamines Scrn Ur MDMA Scrn (Ecstasy) U Benzodiazepines Scrn Urine Cocaine Screen U Marijuana (THC) Screen Ethyl Alcohol A. baumannii (PCR) Melly albicans (PCR) C. glabrata (PCR) C. krusei (PCR) C. parapsilosis (PCR) C. tropicalis (PCR) SARS-CoV-2 (PCR) Negative Enterobacteriac sp PCR E. cloacae complex PCR Enterococcus sp PCR E. coli (PCR) H. influenzae (PCR) Klebsiella oxytoca PCR Klebsiella pneumoniae List. monocytogenes PCR N. meningitidis (PCR) Proteus species (PCR) Serratia marcescens PCR Staphylococcus sp PCR Staph aureus (PCR) mecA-Methicil Res Gene Streptococcus sp PCR Group A Strep (PCR) Strep agalactiae (PCR) Strep pneumoniae (PCR) P. aeruginosa (PCR) Elie/B-Vanco Res Genes KPC-Carbap Res Gene PCR 06/20/21 06/20/21 06/20/21 16:41 16:58 16:58 WBC RBC Hgb Hct MCV MCH MCHC RDW Plt Count Neut % (Auto) Lymph % (Auto) [place] % (Auto) Eos % (Auto) Baso % (Auto) Neut # (Auto) Lymph # (Auto) [place] # (Auto) Eos # (Auto) Baso # (Auto) VBG pH VBG pCO2 VBG pO2 VBG HCO3 VBG Total CO2 VBG O2 Saturation VBG Base Excess Sodium Potassium Chloride Carbon Dioxide BUN Creatinine Estimated GFR BUN/Creatinine Ratio Glucose Lactate Calcium Phosphorus Magnesium Total Bilirubin AST ALT Alkaline Phosphatase Total Creatine Kinase CK-MB (CK-2) CK-MB (CK-2) Rel Index Troponin I NT-Pro-B Natriuret Pep Total Protein Albumin Globulin Albumin/Globulin Ratio Procalcitonin TSH Prolactin Urine Color Yellow Urine Appearance Cloudy Urine pH 7.0 Ur Specific [place] 1.010 Urine Protein Negative Urine Glucose (UA) Negative Urine Ketones Negative Urine Occult Blood 2+ H Urine Nitrate Negative Urine Bilirubin Negative Urine Urobilinogen 1.0 Ur Leukocyte Esterase 3+ H Urine RBC 5-10/hpf H Urine WBC >100/hpf H Ur Squamous Epith Cells 1-5 /hpf Urine Bacteria Many (>30) H Ur Culture Indicated? Specimen cultured U Opiates 300ng/mL cut Positive H Ur Oxycodone Screen Negative Urine Methadone Screen Negative Ur Barbiturates Screen Negative U Tricyclic Antidepress Negative Ur Phencyclidine Scrn Negative Ur Amphetamines Screen Negative U Methamphetamines Scrn Negative Ur MDMA Scrn (Ecstasy) Negative U Benzodiazepines Scrn Negative Urine Cocaine Screen Negative U Marijuana (THC) Screen Negative Ethyl Alcohol A. baumannii (PCR) Melly albicans (PCR) C. glabrata (PCR) C. krusei (PCR) C. parapsilosis (PCR) C. tropicalis (PCR) SARS-CoV-2 (PCR) Negative Enterobacteriac sp PCR E. cloacae complex PCR Enterococcus sp PCR E. coli (PCR) H. influenzae (PCR) Klebsiella oxytoca PCR Klebsiella pneumoniae List. monocytogenes PCR N. meningitidis (PCR) Proteus species (PCR) Serratia marcescens PCR Staphylococcus sp PCR Staph aureus (PCR) mecA-Methicil Res Gene Streptococcus sp PCR Group A Strep (PCR) Strep agalactiae (PCR) Strep pneumoniae (PCR) P. aeruginosa (PCR) Elie/B-Vanco Res Genes KPC-Carbap Res Gene PCR 06/20/21 06/20/21 06/21/21 20:10 20:10 00:30 WBC RBC Hgb Hct MCV MCH MCHC RDW Plt Count Neut % (Auto) Lymph % (Auto) [place] % (Auto) Eos % (Auto) Baso % (Auto) Neut # (Auto) Lymph # (Auto) [place] # (Auto) Eos # (Auto) Baso # (Auto) VBG pH 7.53 H VBG pCO2 44.3 L VBG pO2 67 H VBG HCO3 37 H VBG Total CO2 38 H VBG O2 Saturation 95 H VBG Base Excess 14.0 H Sodium Potassium Chloride Carbon Dioxide BUN Creatinine Estimated GFR BUN/Creatinine Ratio Glucose Lactate Calcium Phosphorus 3.0 Magnesium 2.2 Total Bilirubin AST ALT Alkaline Phosphatase Total Creatine Kinase CK-MB (CK-2) CK-MB (CK-2) Rel Index Troponin I 0.014 0.017 NT-Pro-B Natriuret Pep Total Protein Albumin Globulin Albumin/Globulin Ratio Procalcitonin TSH Prolactin Urine Color Urine Appearance Urine pH Ur Specific [place] Urine Protein Urine Glucose (UA) Urine Ketones Urine Occult Blood Urine Nitrate Urine Bilirubin Urine Urobilinogen Ur Leukocyte Esterase Urine RBC Urine WBC Ur Squamous Epith Cells Urine Bacteria Ur Culture Indicated? U Opiates 300ng/mL cut Ur Oxycodone Screen Urine Methadone Screen Ur Barbiturates Screen U Tricyclic Antidepress Ur Phencyclidine Scrn Ur Amphetamines Screen U Methamphetamines Scrn Ur MDMA Scrn (Ecstasy) U Benzodiazepines Scrn Urine Cocaine Screen U Marijuana (THC) Screen Ethyl Alcohol A. baumannii (PCR) Melly albicans (PCR) C. glabrata (PCR) C. krusei (PCR) C. parapsilosis (PCR) C. tropicalis (PCR) SARS-CoV-2 (PCR) Enterobacteriac sp PCR E. cloacae complex PCR Enterococcus sp PCR E. coli (PCR) H. influenzae (PCR) Klebsiella oxytoca PCR Klebsiella pneumoniae List. monocytogenes PCR N. meningitidis (PCR) Proteus species (PCR) Serratia marcescens PCR Staphylococcus sp PCR Staph aureus (PCR) mecA-Methicil Res Gene Streptococcus sp PCR Group A Strep (PCR) Strep agalactiae (PCR) Strep pneumoniae (PCR) P. aeruginosa (PCR) Elie/B-Vanco Res Genes KPC-Carbap Res Gene PCR 06/21/21 06/21/21 06/21/21 05:30 05:30 05:30 WBC 9.6 RBC 3.18 L Hgb 9.4 L Hct 28.6 L MCV 90.0 MCH 29.7 MCHC 33.0 RDW 14.3 Plt Count 216 Neut % (Auto) 75.0 Lymph % (Auto) 10.1 L [place] % (Auto) 14.4 H Eos % (Auto) 0.4 L Baso % (Auto) 0.1 Neut # (Auto) 7200 H Lymph # (Auto) 1000 L [place] # (Auto) 1400 H Eos # (Auto) 0 Baso # (Auto) 0 VBG pH VBG pCO2 VBG pO2 VBG HCO3 VBG Total CO2 VBG O2 Saturation VBG Base Excess Sodium 138 Potassium 2.9 L Chloride 98 Carbon Dioxide 35 H BUN 14 Creatinine 0.90 Estimated GFR > 60.0 BUN/Creatinine Ratio 15.6 Glucose 105 Lactate Calcium 8.8 Phosphorus Magnesium Total Bilirubin 0.8 AST 25 ALT 13 Alkaline Phosphatase 55 Total Creatine Kinase CK-MB (CK-2) CK-MB (CK-2) Rel Index Troponin I 0.019 NT-Pro-B Natriuret Pep Total Protein 5.9 L Albumin 3.3 L Globulin 2.6 Albumin/Globulin Ratio 1.3 Procalcitonin TSH Prolactin Urine Color Urine Appearance Urine pH Ur Specific [place] Urine Protein Urine Glucose (UA) Urine Ketones Urine Occult Blood Urine Nitrate Urine Bilirubin Urine Urobilinogen Ur Leukocyte Esterase Urine RBC Urine WBC Ur Squamous Epith Cells Urine Bacteria Ur Culture Indicated? U Opiates 300ng/mL cut Ur Oxycodone Screen Urine Methadone Screen Ur Barbiturates Screen U Tricyclic Antidepress Ur Phencyclidine Scrn Ur Amphetamines Screen U Methamphetamines Scrn Ur MDMA Scrn (Ecstasy) U Benzodiazepines Scrn Urine Cocaine Screen U Marijuana (THC) Screen Ethyl Alcohol A. baumannii (PCR) Melly albicans (PCR) C. glabrata (PCR) C. krusei (PCR) C. parapsilosis (PCR) C. tropicalis (PCR) SARS-CoV-2 (PCR) Enterobacteriac sp PCR E. cloacae complex PCR Enterococcus sp PCR E. coli (PCR) H. influenzae (PCR) Klebsiella oxytoca PCR Klebsiella pneumoniae List. monocytogenes PCR N. meningitidis (PCR) Proteus species (PCR) Serratia marcescens PCR Staphylococcus sp PCR Staph aureus (PCR) mecA-Methicil Res Gene Streptococcus sp PCR Group A Strep (PCR) Strep agalactiae (PCR) Strep pneumoniae (PCR) P. aeruginosa (PCR) Elie/B-Vanco Res Genes KPC-Carbap Res Gene PCR 06/21/21 10:50 WBC RBC Hgb Hct MCV MCH MCHC RDW Plt Count Neut % (Auto) Lymph % (Auto) [place] % (Auto) Eos % (Auto) Baso % (Auto) Neut # (Auto) Lymph # (Auto) [place] # (Auto) Eos # (Auto) Baso # (Auto) VBG pH 7.51 H VBG pCO2 41.7 L VBG pO2 55 H VBG HCO3 33 H VBG Total CO2 35 H VBG O2 Saturation 91 H VBG Base Excess 10.0 H Sodium Potassium Chloride Carbon Dioxide BUN Creatinine Estimated GFR BUN/Creatinine Ratio Glucose Lactate Calcium Phosphorus Magnesium Total Bilirubin AST ALT Alkaline Phosphatase Total Creatine Kinase CK-MB (CK-2) CK-MB (CK-2) Rel Index Troponin I NT-Pro-B Natriuret Pep Total Protein Albumin Globulin Albumin/Globulin Ratio Procalcitonin TSH Prolactin Urine Color Urine Appearance Urine pH Ur Specific [place] Urine Protein Urine Glucose (UA) Urine Ketones Urine Occult Blood Urine Nitrate Urine Bilirubin Urine Urobilinogen Ur Leukocyte Esterase Urine RBC Urine WBC Ur Squamous Epith Cells Urine Bacteria Ur Culture Indicated? U Opiates 300ng/mL cut Ur Oxycodone Screen Urine Methadone Screen Ur Barbiturates Screen U Tricyclic Antidepress Ur Phencyclidine Scrn Ur Amphetamines Screen U Methamphetamines Scrn Ur MDMA Scrn (Ecstasy) U Benzodiazepines Scrn Urine Cocaine Screen U Marijuana (THC) Screen Ethyl Alcohol A. baumannii (PCR) Melly albicans (PCR) C. glabrata (PCR) C. krusei (PCR) C. parapsilosis (PCR) C. tropicalis (PCR) SARS-CoV-2 (PCR) Enterobacteriac sp PCR E. cloacae complex PCR Enterococcus sp PCR E. coli (PCR) H. influenzae (PCR) Klebsiella oxytoca PCR Klebsiella pneumoniae List. monocytogenes PCR N. meningitidis (PCR) Proteus species (PCR) Serratia marcescens PCR Staphylococcus sp PCR Staph aureus (PCR) mecA-Methicil Res Gene Streptococcus sp PCR Group A Strep (PCR) Strep agalactiae (PCR) Strep pneumoniae (PCR) P. aeruginosa (PCR) Elie/B-Vanco Res Genes KPC-Carbap Res Gene PCR PFSH Medical History Arthritis Asthma Atrial fibrillation Essential hypertension Frequent falls GERD (gastroesophageal reflux disease) Insomnia Iron deficiency anemia Lymphedema Major depressive disorder, recurrent episode with anxious distress Morbid obesity with BMI of 45.0-49.9, adult Osteoarthritis Unstable gait Surgical History History of adjustable gastric banding History of bilateral hip replacements History of gastric bypass Family History Mother Stroke Dementia Father Autoimmune disease Social History household members: none Smoking Status: Former smoker Assessment & Plan Assessment & Plan narrative: 1. UTI with acute metabolic encephalopathy -continue ceftriaxone -follow up cultures -mental status much improved with treatment 2. Possible bacteremia -blood cultures with gram positive cocci -recheck blood culture today -start vancomycin while await final culture 3. Atrial fibrillation, with chronic Eliquis use, essential hypertension, chr onic, present on admission -continue metoprolol, eliquis 3. Asthma, chronic, present on admission -continue patient's albuterol 4. Major depressive disorder with anxiety, chronic, present on admission -patient denies suicidal ideation, continue patient's Ativan and citalopram 5. Osteoarthritis of the hips, knees, shoulders, chronic, present on admission -Continue [place] after 24 hr evaluation (r/o oversedation), Voltaren 6. Bilateral lower extremity lymphedema, acute on chronic, present on admission -SCDs continue patient's Lasix, magnesium, potassium 7. GERD, chronic, present on admission -Continue patient's omeprazole 8. Insomnia, chronic, present on admission -Continue patient's melatonin at bedtime 9. Morbid obesity as evidence by BMI 45.7 kg, acute on chronic, present on admission -consideration will be given for dietary counseling Time Spent With Patient Critical Care time: I spent a total of [] minutes of critical care time on this patient's care today; this time is exclusive of procedural time.
[2021-06-21] MEDS: VANCOMYCIN 1,500 MG/300 ML PIGGYBACK 200 MG IV (12:20)
--- NOTE | 2021-06-21 12:35 | OT.IPNOTE ---
OT eval and treat order received. Upon chart review, pt seen by Kofi on 04/03/21 with note stating Pt receives assist with all ADLs from facility staff at baseline. Will discharge order as pt already needing assist for all care and is not at this time appropriate for OT services.
[2021-06-21] MEDS: ALBUTEROL 2.5 MG/3 ML NEB (ADULT) INH (13:04)
--- NOTE | 2021-06-21 14:37 | PT-IP ANOTE ---
Received orders and reviewed the chart. Pt is not ambulatory at baseline and has been needing increased assist for transfers with [facility] at [facility]. Discussed pt with hospitalist for appropriateness of PT kerwin and would like PT to proceed. Met with pt to discuss prior level but pt refused mobility assessment. Will follow up as staffing allows.
[2021-06-21] MEDS: cefTRIAXone 1,000 MG in SODIUM CHLORIDE 0.9% 100 ML 200 ML IV (20:25)
[2021-06-21] MEDS: MELATONIN 3 MG TABLET 6 MG PO (20:26)
[2021-06-21] MEDS: VANCOMYCIN 1,000 MG/200 ML PIGGYBACK 200 MG IV (23:28)
[2021-06-22] VITALS (15 sets, daily range): BP systolic 134–175; BP diastolic 72–88; PULSE 71–101; RESP 16–20; TEMP 36.6–37.7; O2SAT 92–95
[2021-06-22 06:31] LABS: Hematocrit 28.4 % (36-46); Hemoglobin 9.5 g/dL (12.0-16.0); Mean Corpuscular HGB Conc 33.3 % (30-36); Platelet Count 208 X10^3/uL (150-400); Red Blood Cell Count 3.16 X10^6/uL (4.0-5.2); Red Cell Distribution Width 14.6 % (11.6-14.8); White Blood Cell Count 8.5 X10^3/uL (4.5-11.0)
[2021-06-22 06:41] LABS: BUN Creatinine Ratio 16.5 (6-22); Blood Urea Nitrogen 13 mg/dL (7-17); Calcium 9.2 mg/dL (8.4-10.2); Carbon Dioxide 33 mmol/L (22-32); Chloride 102 mmol/L (98-107); Estimated Glomerular Filt Rate > 60.0 mL/min (>60); Glucose 117 mg/dL (80-110); HEMOLYSIS < 15 (0-50); Potassium 3.3 mmol/L (3.4-5.1); Sodium 140 mmol/L (137-145)
[2021-06-22] MEDS: BUDESONIDE 0.5 MG/2 ML NEB INH ×2 (09:06→19:45)
[2021-06-22] MEDS: RIVAROXABAN 10 MG TABLET 20 MG PO (09:10)
[2021-06-22] MEDS: CITALOPRAM 10 MG TABLET 20 MG PO (09:11)
[2021-06-22] MEDS: PANTOPRAZOLE DR 40 MG TABLET PO (09:11)
[2021-06-22] MEDS: METOPROLOL ER 25 MG TABLET PO (09:11)
[2021-06-22] MEDS: POTASSIUM CHLORIDE 20 MEQ TAB PO ×2 (09:11→12:01)
[2021-06-22] MEDS: ACETAMINOPHEN 325 MG TABLET 650 MG PO ×3 (09:25→23:09)
[2021-06-22] MEDS: LORazepam 0.5 MG TABLET PO ×3 (09:27→23:09)
--- NOTE | 2021-06-22 11:32 | PT-IP ANOTE ---
Called [facility] to inquire about pt's PLOF. PLOF obtained. check on pt but pt refused PT. stated that she has not slept good last night and does not want to move or get out of the bed. will f/u in the afternoon.
--- NOTE | 2021-06-22 11:43 | PM.PN.1 ---
Subjective Subjective Date Patient Seen: 06/22/21 Time Patient Seen: 08:00 Interval history: She has no complaints today. She has no pain. No shortness of breath. Exam Vital Signs (past 8 hours): - 06/22/21 04:00 06/22/21 08:07 06/22/21 09:10 Temperature 97.8 F 99.4 F Pulse Rate 80 78 Respiratory Rate 18 18 19 Blood Pressure 149/75 H 175/88 H Pulse Oximetry 92 95 06/22/21 09:11 06/22/21 09:30 Temperature Pulse Rate Respiratory Rate Blood Pressure 175/88 H Pulse Oximetry 95 Oxygen Delivery Method Room Air Oxygen Flow Rate 0 Narrative Exam Narrative: General: no acute distress Lungs:? clear bilaterally Cardio:? 2/6 murmur Abdomen:? Soft nontender. no organomegaly Neuro:? alert and oriented, slow speech, much more alert than previously Objective Labs Result Diagrams: 06/22/21 05:39 06/22/21 05:39 Labs: Laboratory Results - last 24 hr 06/22/21 06/22/21 05:39 05:39 WBC 8.5 RBC 3.16 L Hgb 9.5 L Hct 28.4 L MCV 90.0 MCH 30.0 MCHC 33.3 RDW 14.6 Plt Count 208 Sodium 140 Potassium 3.3 L Chloride 102 Carbon Dioxide 33 H BUN 13 Creatinine 0.79 Estimated GFR > 60.0 BUN/Creatinine Ratio 16.5 Glucose 117 H Calcium 9.2 PFSH Medical History Arthritis Asthma Atrial fibrillation Essential hypertension Frequent falls GERD (gastroesophageal reflux disease) Insomnia Iron deficiency anemia Lymphedema Major depressive disorder, recurrent episode with anxious distress Morbid obesity with BMI of 45.0-49.9, adult Osteoarthritis Unstable gait Surgical History History of adjustable gastric banding History of bilateral hip replacements History of gastric bypass Family History Mother Stroke Dementia Father Autoimmune disease Social History household members: none Smoking Status: Former smoker Assessment & Plan Assessment & Plan narrative: 1. UTI with acute metabolic encephalopathy -continue ceftriaxone at higher dose 2gm daily -follow up cultures -mental status much improved with treatment 2. Bacteremia -blood cultures with gram positive cocci, gram negative bacilli -recheck blood culture today -start vancomycin while await final culture 3. Atrial fibrillation, with chronic Eliquis use, essential hypertension, chronic, present on admission -continue metoprolol, eliquis 3. Asthma, chronic, present on admission -continue patient's albuterol 4. Major depressive disorder with anxiety, chronic, present on admission -patient denies suicidal ideation, continue patient's Ativan and citalopram 5. Osteoarthritis of the hips, knees, shoulders, chronic, present on admission -Continue [place] after 24 hr evaluation (r/o oversedation), Voltaren 6. Bilateral lower extremity lymphedema, acute on chronic, present on admission -SCDs continue patient's Lasix, magnesium, potassium 7. GERD, chronic, present on admission -Continue patient's omeprazole 8. Insomnia, chronic, present on admission -Continue patient's melatonin at bedtime 9. Morbid obesity as evidence by BMI 45.7 kg, acute on chronic, present on admission -consideration will be given for dietary counseling Time Spent With Patient Critical Care time: I spent a total of [] minutes of critical care time on this patient's care today; this time is exclusive of procedural time.
[2021-06-22] MEDS: VANCOMYCIN 1,000 MG/200 ML PIGGYBACK 200 MG IV (12:01)
--- NOTE | 2021-06-22 13:30 | PT.IIE ---
Medical History (Last Reviewed 06/20/21 @ 22:40 by Mendy Hunt, [facility]) Arthritis Asthma Atrial fibrillation Essential hypertension Frequent falls GERD (gastroesophageal reflux disease) Insomnia Iron deficiency anemia Lymphedema Major depressive disorder, recurrent episode with anxious distress Morbid obesity with BMI of 45.0-49.9, adult Osteoarthritis Unstable gait Physical Therapy Inpatient Evaluation/Re-Eval M1 PT/OT-IP Prior Functional Status Start: 06/21/21 08:31 Freq: NEEDED Status: Active Protocol: Document 06/22/21 15:23 AB (Rec: 06/22/21 15:38 AB [email or web address]) Medical Review Prior Functional Status Medical History Reviewed Yes Communication Able to make her needs known Mobility and Gait Contacted [facility] for PLOF : stated that pt is able to stand pivot transfer using FWW requiring 1-2 person assist and is non ambulatory. pt stated that she usually sits on her manual w/c and staff assists her with maneuvering w/c. pt stated that she has chronic pains on B knees and unable to ambulate because of this Activities of Daily Living and IADL's She uses a bedpan at night but transfers to the toilet pulling on grab bars to stand and pivot transfer with staff assistance of 1-2. Staff assists pt with toilet care, shower and dressing needs Social History Household Members none Living Arrangements Assisted Living Number of Stairs To Enter/Railing? pt lives at [facility] Home Environment Standard Height Toilet, Elevator Home Equipment Front Wheel Walker,Manual Wheelchair,Raised Toilet Seat w/Armrests,Head Loft Worker,Lift Recliner,Hospital Bed,Bed Rails,Grab Bars Near Toilet, Grab Bars In Shower Additional Social History Comment pt stated that she has a hospital bed M2 PT-IP Current Condition Start: 06/21/21 08:31 Freq: NEEDED Status: Active Protocol: Document 06/22/21 15:23 AB (Rec: 06/22/21 15:38 AB [email or web address]) Physical Therapy Current Condition Current Condition Evaluation Date 06/22/21 Treatment Diagnosis UTI; generalized weakness Onset Date 06/20/21 M3 PT-IP Subjective Start: 06/21/21 08:31 Freq: NEEDED Status: Active Protocol: Document 06/22/21 15:23 AB (Rec: 06/22/21 15:38 AB [email or web address]) Subjective Physical Therapy Visit Type Type Initial Evaluation Visit Start Time 13:30 Visit Stop Time 14:05 Total Visit Minutes 35 Number of COMPUTER SUPPORT SPECIALIST Visits 0 Physical Therapy Visit Comments Patient Comments agreed to do PT Therapy Pain Assessment Pain When Pain Assessed During Mobility Pain Present Pain Present Pain Reported Location B LE Scale Used pain scale not stated Pain Management Techniques Modification of Treatment,Re- positioning,Timing of Activity with Medications M4 PT-IP Mobility and Gait Start: 06/21/21 08:31 Freq: NEEDED Status: Active Protocol: Document 06/22/21 15:23 AB (Rec: 06/22/21 15:38 [email or web address]) PT-Bed Mobility Assessment Supine to Sit Supine to Sit Maximum Assistance,2 Person Assistance,Head of Bed Elevated,Bedrails Sit to Supine Sit to Supine Total Assistance,2 Person Assistance Scooting Scooting to Edge of Bed Dependent PT-Transfer Assessment Sit to and From Stand Sit to and from Stand Maximum Assistance,2 Person Assistance,Use of Upper Extremities Equipment Transfer Assistive Device Gait Belt,Front Wheeled Walker Orthotic/Prosthetic Devices or Brace: No Transfers Transfer Destination Chair Transfer Technique Stand Step Pivot Transfer Ability Level of Assist Maximum Assistance,2 Person Assistance,Use of Upper Extremities Comments Mobility Comments pt completed supine to sit max A x 2 and max cues with HOB elevated and used bed rails to assist. pt required max A with initial sitting with increase posterior LOB during sitting. positioned pt on EOB total A x 2 for scooting. pt completed sit to stand from EOB max A x 2 and max cues and step transfer to bed max A x 2 and max cues. pt then stated that she started to move her towels during transfer and wants to go back to the bed to use the bed meyer. attempted sit to stand from the chair providing total A x 2 but pt unable to stand. Used mechanical lift to transfer pt. positioned pt on bed. Left pt with NAC and nurse. PT-Balance Assessment Sitting Balance and Reactions Static Sitting Balance Ability Poor Dynamic Sitting Balance Ability Poor Standing Balance and Reactions Static Standing Balance Ability Poor Dynamic Standing Balance Ability Poor Device Used FWW M5 PT-IP Objective Assessments Start: 06/21/21 08:31 Freq: NEEDED Status: Active Protocol: Document 06/22/21 15:23 AB (Rec: 06/22/21 15:38 [email or web address]) Orientation Orientation/Cognition Level of Alertness Alert Orientation Name,Place,Situation Language Function Ability No Deficits Noted Safety Awareness Decreased Safety Awareness Memory Description Short Term Impaired Gross Range of Motion Lower Extremity ROM Impairments (+) crepitus on B knees with PROM testing Strength Lower Extremity Strength Assessment Bilaterally Impaired Hip 3-/5 Knee 3-/5 Muscle Tone Muscle Tone WNL Yes M6 PT-IP Treatment Start: 06/21/21 08:31 Freq: NEEDED Status: Active Protocol: Document 06/22/21 15:23 AB (Rec: 06/22/21 15:38 AB [email or web address]) Physical Therapy Treatment Education Education Provided Safety M7 PT-IP Assessment and Plan Start: 06/21/21 08:31 Freq: NEEDED Status: Active Protocol: Document 06/22/21 15:23 AB (Rec: 06/22/21 15:38 AB [email or web address]) PT Summary Assessment and Plan Potential Rehabilitation Potential Fair Status of Condition at Evaluation Evolving Summary Impairments Pain,ROM,Strength,Balance, Coordination,Sensation,Tone, Cognition,Bed Mobility, Transfers,Gait,Activity Tolerance Assessment Summary pt requiring total A x2 for mobility with c/o increase B knee pain with sit to stand and standing. d/c plan depending if Yanci HILL will be able to provide necessary assistance. Pt at this time requires a mechanical lift to transfer safely. will continue to assess progress. Goals Bed Mobility Goal Moderate Assistance Transfer Goal Moderate Assistance,Front Wheeled Walker Days to Meet Goals 10 Frequency of Treatment Frequency Of Treatment Once a Day Treatment Plan Physical Therapy Treatment Plan Bed Mobility Training,Transfer Training,Gait Training, Therapeutic Exercise,Balance Retraining,Discharge Planning, Hot or Cold Pack,Neuromuscular Re-ed,Coordination Retraining ,Manual Therapy Recommendations To Nursing Amount of Assist Needed Mechanical Lift Discharge Recommendations PT Discharge Recommendations Home with 13/03 Assist Available,Home Health,SNF Rehab Transportation Needs at Discharge Wheelchair/Cabulance
[2021-06-22] MEDS: cefTRIAXone 2,000 MG in SODIUM CHLORIDE 0.9% 100 ML 200 ML IV (21:24)
[2021-06-22] MEDS: MELATONIN 3 MG TABLET 6 MG PO (21:24)
[2021-06-23] VITALS (15 sets, daily range): BP systolic 119–154; BP diastolic 72–95; PULSE 69–89; RESP 16–21; TEMP 36.2–37; O2SAT 93–96
[2021-06-23] MEDS: VANCOMYCIN 1,000 MG/200 ML PIGGYBACK 200 MG IV (00:48)
[2021-06-23] MEDS: LACTATED RINGERS 1,000 ML 40 ML IV (00:53)
[2021-06-23 02:23] LABS: BUN Creatinine Ratio 14.3 (6-22); Blood Urea Nitrogen 10 mg/dL (7-17); Carbon Dioxide 30 mmol/L (22-32); Chloride 104 mmol/L (98-107); Estimated Glomerular Filt Rate > 60.0 mL/min (>60); Glucose 121 mg/dL (80-110); HEMOLYSIS < 15 (0-50); Potassium 3.5 mmol/L (3.4-5.1); Sodium 139 mmol/L (137-145)
[2021-06-23 02:28] LABS: Vancomycin Peak 30.9 ug/mL (20-40)
[2021-06-23] MEDS: VANCOMYCIN TROUGH 1 REQUEST MISC (04:12)
[2021-06-23] MEDS: VANCOMYCIN PEAK 1 REQUEST MISC (04:13)
[2021-06-23] MEDS: ALBUTEROL 2.5 MG/3 ML NEB (ADULT) INH (05:18)
[2021-06-23] MEDS: BUDESONIDE 0.5 MG/2 ML NEB INH ×2 (05:18→20:21)
[2021-06-23] MEDS: ACETAMINOPHEN 325 MG TABLET 650 MG PO (07:29)
[2021-06-23] MEDS: LORazepam 0.5 MG TABLET PO (07:29)
[2021-06-23] MEDS: CITALOPRAM 10 MG TABLET 20 MG PO (10:26)
[2021-06-23] MEDS: RIVAROXABAN 10 MG TABLET 20 MG PO (10:27)
[2021-06-23] MEDS: METOPROLOL ER 25 MG TABLET PO (10:27)
[2021-06-23] MEDS: PANTOPRAZOLE DR 40 MG TABLET PO (10:27)
[2021-06-23] MEDS: POTASSIUM CHLORIDE 20 MEQ TAB PO (10:28)
--- NOTE | 2021-06-23 10:36 | CM.DPC ---
DCP continued: DAVIS met with Dr Partida in AM rounds and he stated patient will be DC with PO ABX. CM called Mary at [facility] who stated she will start the [employer] auth today but not sure they will authorize do to the fact that the patient will not need IV ABX. CM call [facility] to work on secondary plan to DC back to [facility] when patient is medically ready. Spoke with Nurse practitioner at [facility] and she agrees to accept the patient back at [place] if she cannot go to SNF due to [employer] auth denial. If auth approved will need PASRR, COVID swab and proof of vaccination. Sheryl Lebron RN, Case management.
--- NOTE | 2021-06-23 10:44 | PT-IP ANOTE ---
Pt refused tx x2 today when arrived, 0855. Initial stated to tired, agreeable to return in am. DREDGE ENGINEER educated on importance of mobilizing with therapy for strength and improving functional independence, verbalized understanding but still stated not wanting to work with therapy at that time. When DREDGE ENGINEER/SPTA arrived at 1144 pt stated just got a shower with nursing and need some time to rest, agreeable for DREDGE ENGINEER/SPTA to return in afternoon. DREDGE ENGINEER talked with nursing, pt was hoyered for transfer to shower chair for mobility. DREDGE ENGINEER noted DC orders and possible transfer to SNF later today. Will continue to assess progress in afternoon.
--- NOTE | 2021-06-23 10:52 | PC.NURSE ---
Addendum entered by Saumya Madden R.N. 06/25/21 11:57: 1100- Patient is upset that she is going to [facility], but she understands why. Patient will go for rehab, she has trouble with lifting her arms and legs, when getting up she is a dominick lift. Incontinent of stool and poole just taken out at 1100am. Awaiting for patient to void. Original Note: Assess- Patient is alert and oriented x3, she denies pain. Patient is anxious and tends to be on her call luis alot but she is pleasant and cooperative. She has a blister to her r.thigh that is intact, and some bruising to her r.hand. Ate breakfast, resting comfortably after her bed bath.
--- NOTE | 2021-06-23 15:43 | PT.IPTN ---
Physical Therapy Treatment Note M2 PT-IP Current Condition Start: 06/21/21 08:31 Freq: NEEDED Status: Active Protocol: Document 06/23/21 13:03 SP (Rec: 06/23/21 16:46 SP [id number]) Physical Therapy Current Condition Current Condition Evaluation Date 06/22/21 Treatment Diagnosis UTI; generalized weakness Onset Date 06/20/21 M3 PT-IP Subjective Start: 06/21/21 08:31 Freq: NEEDED Status: Active Protocol: Document 06/23/21 13:03 SP (Rec: 06/23/21 16:46 SP [id number]) Subjective Physical Therapy Visit Type Type Treatment Note Visit Start Time 15:03 Visit Stop Time 15:43 Total Visit Minutes 40 Notes SPTA Ryan provided 2nd person physical assist to REGULATORY COMPLIANCE DIRECTOR Thelma with pt throughout tx. Number of REGULATORY COMPLIANCE DIRECTOR Visits 1 Physical Therapy Visit Comments Patient Comments Pt agreeable to mobilizing with therapy. Therapy Pain Assessment Pain When Pain Assessed During Mobility Pain Present Pain Present Pain Reported Location B LE Scale Used not quanitified Description With Movement Pain Behaviors Facial Grimacing,Moaning, Restlessness,Wincing Pain Management Techniques Modification of Treatment,Re- positioning,Timing of Activity with Medications M4 PT-IP Mobility and Gait Start: 06/21/21 08:31 Freq: NEEDED Status: Active Protocol: Document 06/23/21 13:03 SP (Rec: 06/23/21 16:46 SP [id number]) PT-Bed Mobility Assessment Rolling Type of Rolling Log Rolling,Bilateral Level of Assist Maximal Assistance,2 Person Assistance Supine to Sit Supine to Sit Maximum Assistance,2 Person Assistance,Head of Bed Elevated Sit to Supine Sit to Supine Total Assistance,2 Person Assistance Scooting Scooting to Edge of Bed Dependent Scooting Up and Down in Bed Dependent PT-Transfer Assessment Sit to and From Stand Sit to and from Stand Maximum Assistance,2 Person Assistance,Use of Upper Extremities Equipment Transfer Assistive Device Gait Belt,Front Wheeled Walker Orthotic/Prosthetic Devices or Brace: No Transfers Transfer Destination Bed Comments Mobility Comments Pt elevated supine when arrived. SPTA Provided instruction LE mobility to EOB 75%A each LE while REGULATORY COMPLIANCE DIRECTOR provided Upper body support. Pt attempts to scoot pelvis with trunk extension no advancement, pt wt shifts trunk into bed for attempt in assist mobility, unable to WB UE on bed due to pain and inability to reach. Max A x2 to trunk right to sit and scoot to EOB w/ use of transfer pad. Pt was able to come to full stand with Max A x2 BUE on FWW for few seconds, pt attempted to reach back to sit, difficult controlled sit due to B knees locked into extension and report of bone on bone pain cues for need to allow knee flexion to complete sit on EOB max A x2 for slow descent. Pt had difficult sitting back onto be due to lack of height, pressed call light for 3rd person assist, unsuccessful to scoot back using transfer pad and support under LE, while providing Max A for retro lean . REGULATORY COMPLIANCE DIRECTOR called completed rayne transfer for safety return to bed. FIELD MANAGER, SPTA and REGULATORY COMPLIANCE DIRECTOR completed proper positioning of rayne sling while in sitting EOB. FIELD MANAGER completed mechanical lift with assist of REGULATORY COMPLIANCE DIRECTOR/ SPTA to center and lower in bed. Max A of 2 person for LR R and L x2, 3rd person for hygiene and assist with bedding change. Pt was supine, provided FIELD MANAGER recommendations to give pt position change every 1-2 hrs for safety of skin integrity. SPTA notifed FIELD MANAGER of blister on R posterolateral hip, FIELD MANAGER responded noted during shower and nurse is aware and continally assessing. Pt had call light and all needs in reach. Gait Assessment Comments Gait Comments Only able to come to stand. Stair Climbing Assessment Comments Stair Climbing Comments No stairs to assess PT-Balance Assessment Sitting Balance and Reactions Static Sitting Balance Ability Poor Dynamic Sitting Balance Ability Poor Standing Balance and Reactions Static Standing Balance Ability Poor Device Used FWW M5 PT-IP Objective Assessments Start: 06/21/21 08:31 Freq: NEEDED Status: Active Protocol: Document 06/22/21 15:23 AB (Rec: 06/22/21 15:38 AB [id number]) Orientation Orientation/Cognition Level of Alertness Alert Orientation Name,Place,Situation Language Function Ability No Deficits Noted Safety Awareness Decreased Safety Awareness Memory Description Short Term Impaired Gross Range of Motion Lower Extremity ROM Impairments (+) crepitus on B knees with PROM testing Strength Lower Extremity Strength Assessment Bilaterally Impaired Hip 3-/5 Knee 3-/5 Muscle Tone Muscle Tone WNL Yes M6 PT-IP Treatment Start: 06/21/21 08:31 Freq: NEEDED Status: Active Protocol: Document 06/23/21 13:03 SP (Rec: 06/23/21 16:46 SP [id number]) Physical Therapy Treatment Education Education Provided Safety M7 PT-IP Assessment and Plan Start: 06/21/21 08:31 Freq: NEEDED Status: Active Protocol: Document 06/23/21 13:03 SP (Rec: 06/23/21 16:46 SP [id number]) PT Summary Assessment and Plan Summary Impairments Pain,ROM,Strength,Balance, Coordination,Sensation,Tone, Cognition,Bed Mobility, Transfers,Gait,Activity Tolerance Progress Towards Goals Slow Progress due to Pain,Slow Progress due to Medical Issues,Slow Progress due to Activity Tolerance Assessment Summary Pt required Max A x2, c/o knee and shoulder pain during supine>sit and scoot to EOB with heavy use of transfer pad . sit<>stand Max A x2 and maintain standing w/ FWW, stood few seconds. Rayne lift back to bed due to inability to complete Max x3 attempt for safety. Max A x1-2 for LR and maintain sidelying. Recommend rayne lift for transfers and SNF for benefit increase strength and functional mobility. Will continue to assess progress. Goals Bed Mobility Goal Moderate Assistance Transfer Goal Moderate Assistance,Front Wheeled Walker Days to Meet Goals 10 Frequency of Treatment Frequency Of Treatment Once a Day Treatment Plan Physical Therapy Treatment Plan Bed Mobility Training,Transfer Training,Gait Training, Therapeutic Exercise,Balance Retraining,Discharge Planning, Hot or Cold Pack,Neuromuscular Re-ed,Coordination Retraining ,Manual Therapy Other Recommendations and Next Treatment bed mob, standing, transfers Focus if tolerated. Recommendations To Nursing Amount of Assist Needed Mechanical Lift Discharge Recommendations PT Discharge Recommendations SNF Rehab Transportation Needs at Discharge Wheelchair/Cabulance
--- NOTE | 2021-06-23 18:43 | P.PN_ITS ---
Subjective Subjective Date Patient Seen: 06/23/21 Time Patient Seen: 11:00 Interval history: She has no complaints today. She has no pain. No shortness of breath. Exam Vital Signs (past 8 hours): - 06/23/21 11:20 06/23/21 15:35 Temperature 97.2 F L 97.2 F L Pulse Rate 77 78 Respiratory Rate 17 16 Blood Pressure 134/80 138/72 Pulse Oximetry 95 95 Oxygen Delivery Method Room Air Oxygen Flow Rate 0 Narrative Exam Narrative: General: no acute distress Lungs:? clear bilaterally without wheezes, rhonchi, or rales Cardio:? 2/6 murmur, irregularly irregular rhythm with normal rate Abdomen:? Soft nontender, nondistended Neuro:? alert and oriented, slow speech reportedly improved Objective Labs Result Diagrams: 06/22/21 05:39 06/23/21 01:52 Labs: Laboratory Results - last 24 hr 06/22/21 06/23/21 06/23/21 23:25 01:52 01:52 Sodium Potassium Cancelled Chloride Carbon Dioxide BUN Creatinine Estimated GFR BUN/Creatinine Ratio Glucose Calcium Vancomycin Peak 30.9 Vancomycin Trough 12.0 06/23/21 01:52 Sodium 139 Potassium 3.5 Chloride 104 Carbon Dioxide 30 BUN 10 Creatinine 0.70 Estimated GFR > 60.0 BUN/Creatinine Ratio 14.3 Glucose 121 H Calcium 9.0 Vancomycin Peak Vancomycin Trough PFSH Medical History Arthritis Asthma Atrial fibrillation Essential hypertension Frequent falls GERD (gastroesophageal reflux disease) Insomnia Iron deficiency anemia Lymphedema Major depressive disorder, recurrent episode with anxious distress Morbid obesity with BMI of 45.0-49.9, adult Osteoarthritis Unstable gait Surgical History History of adjustable gastric banding History of bilateral hip replacements History of gastric bypass Family History Mother Stroke Dementia Father Autoimmune disease Social History household members: none Smoking Status: Former smoker Assessment & Plan Assessment & Plan narrative: 1. UTI with acute metabolic encephalopathy, impr oving. -continue ceftriaxone at higher dose 2gm daily given bacteremia -final cultures as noted below. Initially on ceftriaxone now changed to PO cefdinir. Total 7 days therapy recommended for bacteremia. 2. Bacteremia -blood cultures with aerococcus and an acenitobacter. -can change from ceftriaxone to PO cefdinir. 3. 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 Asthma, chronic, present on admission -continue patient's albuterol 4. Major depressive disorder with anxiety, chronic, present on admission -patient denies suicidal ideation, continue patient's Ativan and citalopram 5. Osteoarthritis of the hips, knees, shoulders, chronic, present on admission -Continue [place], Voltaren 6. Bilateral lower extremity lymphedema, acute on chronic, present on admission -SCDs continue patient's Lasix, magnesium, potassium 7. GERD, chronic, present on admission -Continue patient's omeprazole 8. Insomnia, chronic, present on admission -Continue patient's melatonin at bedtime 9. Morbid obesity as evidence by BMI 45.7 kg, acute on chronic, present on admission -consideration will be given for dietary counseling dispo: pending further PT / OT to determine if return to assisted living or need for SNF. Time Spent With Patient Critical Care time: I spent a total of [] minutes of critical care time on this patient's care today; this time is exclusive of procedural time.
[2021-06-23] MEDS: MELATONIN 3 MG TABLET 6 MG PO (21:34)
[2021-06-23] MEDS: CEFDINIR 300 MG CAPSULE PO (21:34)
[2021-06-24] VITALS (15 sets, daily range): BP systolic 133–149; BP diastolic 66–91; PULSE 70–88; RESP 15–20; TEMP 36–36.9; O2SAT 93–96
[2021-06-24 01:22] LABS: Clostridium Difficile Tox PCR Positive for C. diff (Negative)
--- NOTE | 2021-06-24 01:26 | PM.CALLCOV.1 ---
Call Coverage Note Note Narrative of Care Provided: Patient's PCR for clostridium difficile was positive. She was started on po vancomycin 125 mg qid.
--- NOTE | 2021-06-24 01:41 | PC.NURSE ---
Addendum entered by Gi Dunham R.N. 06/24/21 05:18: Patient appears to be anxious throughout shift. 0.5mg Ativan PO was given at 0225 which helped but patient is now stating that she is feeling anxious again. Patient was reassured that staff is right outside her door if needed and medication timing was explained. Patient resting in bed with no other complaints at this time. Original Note: This RN was told my day shift RN that patient had had 3 loose stools during day shift. Patient continued to have loose BMs this shift and this RN called Provider, LUC Pascual asking if a C-Diff sample could be sent to the lab. Telephone orders were given to collect and send. A sample was sent at 2345. Rin in the lab called at 0122 to report that the patient was positive for C-Diff. Provider and charge were notified.
[2021-06-24] MEDS: VANCOMYCIN 125 MG CAPSULE PO ×4 (02:25→18:47)
[2021-06-24] MEDS: LORazepam 0.5 MG TABLET PO ×3 (02:25→20:30)
[2021-06-24] MEDS: BUDESONIDE 0.5 MG/2 ML NEB INH ×2 (08:43→19:43)
[2021-06-24] MEDS: RIVAROXABAN 10 MG TABLET 20 MG PO (08:43)
[2021-06-24] MEDS: METOPROLOL ER 25 MG TABLET PO (08:44)
[2021-06-24] MEDS: CITALOPRAM 10 MG TABLET 20 MG PO (08:44)
[2021-06-24] MEDS: POTASSIUM CHLORIDE 20 MEQ TAB PO (08:45)
[2021-06-24] MEDS: PANTOPRAZOLE DR 40 MG TABLET PO (08:45)
[2021-06-24] MEDS: CEFDINIR 300 MG CAPSULE PO ×2 (08:52→20:18)
[2021-06-24] MEDS: ONDANSETRON 4 MG ODT SL (10:59)
--- NOTE | 2021-06-24 11:57 | PM.PN.1 ---
Subjective Subjective Date Patient Seen: 06/24/21 Time Patient Seen: 11:57 Interval history: Diarrhea overnight, C .diff positive. Diarrhea has slightly improved she thinks this mornining. No abdominal pain, nausea, vomiting. Continues to feel weak. Exam Vital Signs (past 8 hours): - 06/24/21 05:00 06/24/21 08:40 06/24/21 08:44 Temperature 98.5 F Pulse Rate 76 76 Respiratory Rate 15 Blood Pressure 144/88 H 144/88 H Pulse Oximetry 94 95 06/24/21 08:46 Temperature Pulse Rate 72 Respiratory Rate 16 Blood Pressure Pulse Oximetry 95 Oxygen Delivery Method Room Air Oxygen Flow Rate 0 Narrative Exam Narrative: General: no acute distress Lungs:? clear bilaterally without wheezes, rhonchi, or rales Cardio:? 2/6 murmur, irregularly irregular rhythm with normal rate Abdomen:? Soft nontender, nondistended Neuro:? alert and oriented, slow speech reportedly improved Objective Labs Result Diagrams: 06/22/21 05:39 06/23/21 01:52 Labs: Laboratory Results - last 24 hr 06/23/21 23:41 C. difficile Tox (PCR) Positive for c. diff H [facility] Medical History Arthritis Asthma Atrial fibrillation Essential hypertension Frequent falls GERD (gastroesophageal reflux disease) Insomnia Iron deficiency anemia Lymphedema Major depressive disorder, recurrent episode with anxious distress Morbid obesity with BMI of 45.0-49.9, adult Osteoarthritis Unstable gait Surgical History History of adjustable gastric banding History of bilateral hip replacements History of gastric bypass Family History Mother Stroke Dementia Father Autoimmune disease Social History household members: none Smoking Status: Former smoker Assessment & Plan Assessment & Plan narrative: 1. Sepsis without septic shock, secondary to bacteremia from urinary source with acute metabolic encephalopathy secondary to sepsis, improving. -continue ceftriaxone at higher dose 2gm daily given bacteremia. Patients encephalopathy took a few days to return to her baseline. SOFA score of 3 on admission. -final cultures as noted below. Initially on ceftriaxone now changed to PO cefdinir. Total 7 days therapy recommended for bacteremia. 2. Gram negative Bacteremia, acute, present on admission -blood cultures with aerococcus and an acenitobacter. -can change from ceftriaxone to PO cefdinir. Total 7 day course. 3. Atrial fibrillation, with chronic Eliquis use, essential hypertension, chronic, present on admission -continue metoprolol, eliquis 4. Asthma, chronic, present on admission -continue patient's albuterol 5. Major depressive disorder with anxiety, chronic, present on admission -patient denies suicidal ideation, continue patient's Ativan and citalopram 6. Osteoarthritis of the hips, knees, shoulders, chronic, present on admission -Continue [place], Voltaren 7. Bilateral lower extremity lymphedema, acute on chronic, present on admission -SCDs continue patient's Lasix, magnesium, potassium 8. GERD, chronic, present on admission -Continue patient's omeprazole 9. Insomnia, chronic, present on admission -Continue patient's melatonin at bedtime 10. Morbid obesity as evidence by BMI 45.7 kg, acute on chronic, present on admission -consideration will be given for dietary counseling 11. C. difficile colitis - patient developed diarrhea 06/23. Testing positive for C. diff. Will treat with oral vancomycin. dispo: likely SNF Time Spent With Patient Critical Care time: I spent a total of [] minutes of critical care time on this patient's care today; this time is exclusive of procedural time. Scores SOFA PaO2/FIO2: < 400 mmHg Platelets: >= 150 Bilirubin: < 1.2 mg/dL Hypotension: MAP >= 70 mmHg [place] Coma Scale: 10-12 Renal: < 1.2 mg/dL SOFA Score: 3
[2021-06-24 13:20] LABS: Add Manual Diff / Slide Review NO; Basophils Absolute Auto 100 /uL (0-100); Basophils Percent Auto 0.6 % (0-2); Eosinophils Absolute Auto 200 /uL (0-450); Eosinophils Percent Auto 1.4 % (2-4); Hematocrit 27.8 % (36-46); Hemoglobin 9.4 g/dL (12.0-16.0); Lymphocytes Absolute Auto 700 /uL (1100-4500); Lymphocytes Percent Auto 6.8 % (25-40); Mean Corpuscular HGB Conc 33.9 % (30-36); Mean Corpuscular Volume 88.5 fL (80-100); Monocytes Absolute Auto 1000 /uL (0-900); Neutrophils Absolute Auto 9000 /uL (1500-7000); Neutrophils Percent Auto 82.2 % (50-75); Platelet Count 258 X10^3/uL (150-400); Red Blood Cell Count 3.14 X10^6/uL (4.0-5.2); White Blood Cell Count 10.9 X10^3/uL (4.5-11.0)
[2021-06-24 13:33] LABS: BUN Creatinine Ratio 13.8 (6-22); Blood Urea Nitrogen 8 mg/dL (7-17); Calcium 8.7 mg/dL (8.4-10.2); Carbon Dioxide 27 mmol/L (22-32); Chloride 101 mmol/L (98-107); Estimated Glomerular Filt Rate > 60.0 mL/min (>60); Glucose 93 mg/dL (80-110); Sodium 134 mmol/L (137-145)
[2021-06-24 13:34] LABS: HEMOLYSIS 61 (0-50); Potassium 3.7 mmol/L (3.4-5.1)
[2021-06-24] MEDS: MELATONIN 3 MG TABLET 6 MG PO (20:18)
[2021-06-24] MEDS: DICLOFENAC 1% GEL 100 GM 1 APPLIC TOP (20:18)
[2021-06-24] MEDS: ACETAMINOPHEN 325 MG TABLET 650 MG PO (20:30)
[2021-06-25] VITALS (8 sets, daily range): BP systolic 116–140; BP diastolic 59–74; PULSE 73–85; RESP 17–18; TEMP 36.2–36.6; O2SAT 94–96
[2021-06-25] MEDS: LORazepam 0.5 MG TABLET PO (00:03)
[2021-06-25] MEDS: VANCOMYCIN 125 MG CAPSULE PO ×2 (01:23→08:57)
[2021-06-25] MEDS: ACETAMINOPHEN 325 MG TABLET 650 MG PO (02:58)
[2021-06-25] MEDS: CEFDINIR 300 MG CAPSULE PO (08:50)
[2021-06-25] MEDS: RIVAROXABAN 10 MG TABLET 20 MG PO (08:51)
[2021-06-25] MEDS: CITALOPRAM 10 MG TABLET 20 MG PO (08:51)
[2021-06-25] MEDS: METOPROLOL ER 25 MG TABLET PO (08:52)
[2021-06-25] MEDS: POTASSIUM CHLORIDE 20 MEQ TAB PO (08:53)
[2021-06-25] MEDS: PANTOPRAZOLE DR 40 MG TABLET PO (08:53)
[2021-06-25] MEDS: BUDESONIDE 0.5 MG/2 ML NEB INH (09:22)
--- NOTE | 2021-06-25 10:33 | P.DS_ITS ---
History of Present Illness History of Present Illness Date Patient Seen: 06/25/21 Time Patient Seen: 10:33 Chief complaint: Altered mental status Narrative: Per Mendy Hunt, ALFALFA DEHYDRATOR OPERATOR-BC: ?This is a 75-year-old female who comes to emergency department with complaint of altered mental status.? Patient is having difficulty with speech and concern for possible stroke.? Patient was here in March for possible stroke and suspected have a TIA with failure on Eliquis and changed to Xarelto.? Per EMS they state that she also seemed to have quite foul odor to urine.? She was last seen normal sometime before 10:00 a.m, but exact time frame is unclear.? Patient is febrile here in the department.? She answers yes no to some questions but has difficulty getting her words out.? She does seem to be altered and does not clearly answer questions.? She does have a history of morbid obesity, atrial fibrillation major depression, hypertension with prior CVA/TIA and is currently at [facility].? Upon admit to the floor are patient continues to be confused she can answered her name and date of is confused as to why she was recently hospitalized and cannot recall any of the events of today that brought her in, she is unable to accurately participate in HPI or ROS due to encephalopathy.? Patient's initial admitting vitals, she is febrile, and tachypneic temp of 102.2?, BP 159/70, HR 86, R 24, 95% on room air.? She is noted to have ARLENE and normally sleeps with a CPAP and desats into the 80s while she sleeping normally.? Patient appears in no distress and verbalizes no pain or discomfort.? Yoder placed in ED urine output appropriate. Patient does not have a white count, but does have neutrophils 9100 and mono# 1000, HGB 11.1, HCT 33.3.? Patient has mild hypokalemia potassium 3.3, HC03 of 35, glucose 130, GFR 59.4, BNP slightly elevated 877, T a SAH, procalcitonin are both normal.? Patient's urine is positive for opiates as prescribed.? Urinalysis was positive for bacteria and sent for culture.? At the time of admit patient does meet SIRS and sepsis criteria, with a sofa score:? 3.? Patient's head CT was negative for any intracranial acute processes, chest x-ray was negative for any consolidation, hip x-ray noted bilateral arthroplasties without fractures visualized.? VBG is pH 7.526, pCO2 44.3, PO2 67, HC03 36.7, TCO2 38, O2 sat 95%.? Patient admitted for encephalopathy likely secondary to UTI resulting in hypokalemia. Discharge Providers Provider Date of admission: 06/20/21 18:11 Discharge Date: 06/25/21 Primary care physician: LUC Bruce Consults: 06/20/21 23:00 Consult to Physical Therapy Evaluate & Treat Comment: Mobility issues Physician Instructions: Evaluate and Treat 06/21/21 10:13 Consult to Occupational Therapy Evaluate & Treat Comment: Physician Instructions: Evaluate and treat 06/21/21 18:13 Consult to Dietitian, Adult Routine Comment: Reason For Exam: Nutritional Assessment Score 06/24/21 18:16 Consult to Dietitian, Adult Routine Comment: Reason For Exam: immobile, morbid obesity, skin breakdown Discharge provider: Jose Partida DO Summary Hospital Course Discharge Diagnosis: Please see hospital course by problem list noted below. Hospital Course: 1. Sepsis without septic shock, secondary to bacteremia from urinary source with acute metabolic encephalopathy secondary to sepsis, improving. -continued ceftriaxone at higher dose 2gm daily given bacteremia. Patients encephalopathy took a few days to return to her baseline. SOFA score of 3 on admission. -final cultures as noted below. Initially on ceftriaxone then changed to PO cefdinir when medically stable. Total 7 days therapy recommended for bacteremia. 2 additional days after discharge prescribed. 2. Gram negative Bacteremia, acute, present on admission -blood cultures with aerococcus and an acenitobacter. -antibiotics as noted above. 3. Atrial fibrillation, with chronic Eliquis use, essential hypertension, chronic, present on admission -continue metoprolol, eliquis. No changes are recommended upon discharge. 4. Asthma, chronic, present on admission -continue patient's albuterol 5. Major depressive disorder with anxiety, chronic, present on admission -patient denies suicidal ideation, continue patient's Ativan and citalopram 6. Osteoarthritis of the hips, knees, shoulders, chronic, present on admission -Continue [place], [place] 7. Bilateral lower extremity lymphedema, acute on chronic, present on admission -patient's lasix was discontinued given normotension and current diarrhea. Consider resuming as an outpatient. 8. GERD, chronic, present on admission -Continue patient's omeprazole 9. Insomnia, chronic, present on admission -Continue patient's melatonin at bedtime 10. Morbid obesity as evidence by BMI 45.7 kg, acute on chronic, present on admission -patient at higher risk for complications from her sepsis and C.diff due to her obesity. -continue PT/OT and recommend further interventions and dietary changes at SNF and subsequently at assisted living. 11. C. difficile colitis ?- patient developed diarrhea 06/23. Testing positive for C. diff. Will treat with oral vancomycin for 14 total days. Time Spent with Patient Time spent: Greater than 30 minutes Exam Vital Signs (past 8 hours): - 06/25/21 03:20 06/25/21 05:00 06/25/21 07:20 Temperature 97.8 F 97.1 F L Pulse Rate 85 74 Respiratory Rate 18 17 Blood Pressure 140/74 133/59 L Pulse Oximetry 95 94 95 06/25/21 08:52 06/25/21 09:00 06/25/21 09:24 Temperature Pulse Rate 73 Respiratory Rate Blood Pressure 133/59 L Pulse Oximetry 96 96 Oxygen Delivery Method Room Air Oxygen Flow Rate 0 Narrative Exam Narrative: General: no acute distress Lungs:? clear bilaterally without wheezes, rhonchi, or rales Cardio:? 2/6 murmur, irregularly irregular rhythm with normal rate Abdomen:? Soft nontender, nondistended Neuro:? alert and oriented, slow speech reportedly improved Objective Labs Result Diagrams: 06/24/21 13:05 06/24/21 13:05 Labs: Laboratory Results - last 24 hr 06/24/21 06/24/21 13:05 13:05 WBC 10.9 RBC 3.14 L Hgb 9.4 L Hct 27.8 L MCV 88.5 MCH 30.0 MCHC 33.9 RDW 14.0 Plt Count 258 Neut % (Auto) 82.2 H Lymph % (Auto) 6.8 L [place] % (Auto) 9.0 Eos % (Auto) 1.4 L Baso % (Auto) 0.6 Neut # (Auto) 9000 H Lymph # (Auto) 700 L [place] # (Auto) 1000 H Eos # (Auto) 200 Baso # (Auto) 100 Sodium 134 L Potassium 3.7 Chloride 101 Carbon Dioxide 27 BUN 8 Creatinine 0.58 Estimated GFR > 60.0 BUN/Creatinine Ratio 13.8 Glucose 93 Calcium 8.7 PFSH Medical History Arthritis Asthma Atrial fibrillation Essential hypertension Frequent falls GERD (gastroesophageal reflux disease) Insomnia Iron deficiency anemia Lymphedema Major depressive disorder, recurrent episode with anxious distress Morbid obesity with BMI of 45.0-49.9, adult Osteoarthritis Unstable gait Surgical History History of adjustable gastric banding History of bilateral hip replacements History of gastric bypass Family History Mother Stroke Dementia Father Autoimmune disease Social History household members: none Smoking Status: Former smoker Discharge Plan Discharge Plan Patient Disposition: SNF Transfer to: [facility] Provider Discharge Comment: Patient admitted to the hospital with sepsis secondary to UTI and corresponding bacteremia. Transfer to SNF for continued rehabilitation due to condition. Course complicated by C. diff colitis. Continue enhanced contact precautions. Discharge orders & Medications Prescriptions: New vancomycin 125 mg Capsule 125 mg PO Q6H 12 Days Qty: 48 RF: 0 cefdinir 300 mg Capsule 300 mg PO BID 2 Days Qty: 4 RF: 0 Continued melatonin 3 mg Tablet 6 mg PO BEDTIME RF: 0 citalopram 20 mg tablet 20 mg PO DAILY RF: 0 montelukast 10 mg tablet 10 mg PO BEDTIME RF: 0 metoprolol succinate 25 mg tablet extended release 24 hr 25 mg PO DAILY RF: 0 diclofenac sodium 1 % gel 4 g TOPICAL BID RF: 0 Arnuity Ellipta 200 mcg/actuation blister with device 1 inh INHALATION DAILY RF: 0 magnesium oxide 400 mg magnesium Tablet 400 mg PO BID RF: 0 sennosides [senna] 8.6 mg Tablet 8.6 mg PO DAILY PRN (Reason: Constipation) RF: 0 polyethylene glycol 3350 17 gram Powder In Packet 17 g PO DAILY PRN (Reason: Constipation) RF: 0 fexofenadine 60 mg Tablet 60 mg PO BID PRN (Reason: unknown) RF: 0 cyanocobalamin (vitamin B-12) [Vitamin B-12] 1,000 mcg Tablet 1,000 mcg PO DAILY RF: 0 omeprazole 40 mg capsule,delayed release(DR/EC) 40 mg PO DAILY RF: 0 potassium chloride 20 mEq tablet,ER particles/crystals 20 meq PO DAILY RF: 0 magnesium hydroxide [Milk of Magnesia] 400 mg/5 mL Suspension 400 mg PO DAILY PRN (Reason: Constipation) RF: 0 hydrocortisone 1 % Cream 1 applic TOPICAL Q6H PRN (Reason: Rash) RF: 0 nystatin 100,000 unit/gram powder 1 applic TOPICAL Q6H PRN (Reason: Rash) RF: 0 albuterol sulfate 90 mcg/actuation HFA aerosol inhaler 2 inh INHALATION Q4HR PRN (Reason: Shortness Of Breath) RF: 0 bisacodyl 5 mg Tablet 10 mg PO DAILY PRN (Reason: Constipation) RF: 0 cholecalciferol (vitamin D3) [Vitamin D3] 25 mcg (1,000 unit) Tablet 25 mcg PO DAILY RF: 0 PNV cmb#95-ferrous fumarate-FA [] 28 mg iron- 800 mcg Tablet 1 tab PO DAILY RF: 0 Xarelto 20 mg tablet 20 mg PO DAILY Qty: 30 RF: 0 hydrocodone-acetaminophen 5-325 mg Tablet 1 tab PO Q4H PRN (Reason: Pain (Scale Score 1-3)) 7 Days Qty: 10 RF: 0 Changed lorazepam 0.5 mg tablet 0.5 mg PO Q6H PRN (Reason: Anxiety) 7 Days Qty: 10 RF: 0 Discontinued furosemide 80 mg tablet 80 mg PO DAILY RF: 0 bisacodyl 10 mg Suppository 10 mg CA DAILY RF: 0 hydrocodone bitartrate 20 mg tablet,oral only,ext.rel.24 hr 20 mg PO DAILY RF: 0 Follow up/Referrals: Inés Whitley ARNP [Primary Care Provider] - Discharge Health Status Precautions: Contact Diet/Activity/Treatments Diet: Diet as Tolerated Discharge Data Primary Care Provider: Inés Whitley
--- NOTE | 2021-06-25 11:04 | CM.DPNOTE ---
Faxed vaccination card to [employer] and received confirm. Also scanned to EMR. DAVIS Huntert.
[2021-06-25 12:01] LABS: COVID19 -Nasal RAPID Negative (Negative)
--- NOTE | 2021-06-25 12:29 | PC.NURSE ---
Pt AOx3, vital signs stable. Had one loose stool this morning. Yoder d/c at 11AM. Reported pain /10. Pt is going to be discharged to a SNF at 1300. Bed is in low and call light is within reach.
--- NOTE | 2021-06-25 13:40 | PT-IP ANOTE ---
Attempted to see pt at 13:40, but pt was already d/c.
--- NOTE | 2021-06-25 13:51 | PC.NURSE ---
Patient discharged to SNF and reort called to [facility]. Folder of paperwork sent with sanitation truck driver.
--- NOTE | 2021-06-25 14:43 | CM.DPC ---
DCP Cont: Checked in with Mary earlier this morning, at [facility] to see about [employer] authorization. She indicated, it was still pending, and unsure if they would cover since she is not on IV ABO. Patient is positive for C-Diff. Discussed patient at team rounds and verified that she is not needing any IV antibiotics, only oral. Confirmed that [facility] could take her back if [facility] could not get the authorization. Called January back later in the morning and she indicated, she just received the auth. Updated patient, and she stated, 'I really want to go back to [facility], I don't see how skilled rehab would help me because I am in a wheel-chair all the time anyway. Explained to patient that she would get more rehab at [facility], and due to her medical needs, may be able to work with her over there before returning home. Patient still upset about not being able to go back to [facility]. Let patient know that this outsole caser could call back [facility] to see what they would say. Spoke to Bar at [facility]. She had LUC Villa there as well, and discussed situation. Inés spoke to this outsole caser and encouraged this outsole caser to let her know that her nurse practitioner advises her to go over to [facility] so she can get daily therapy. She also indicated that she would go over there and see her since it is next door. Relayed this to patient, and after much encouragement, she consented to go. Reminded her that her apartment at [facility] would be waiting for her after rehab. P: Patient to DC to [facility]. Per patient's permission, was able to pull up her COVID vaccination, and she was also swabbed, and was negative. 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 Natalie Flores RN/[employer]
[2021-06-25 14:57] LABS: C difficie Toxins A and B, EIA Negative (Negative)
== END 2021-06-25 13:00 | DRG 871 ==
LOC: ED 18:12 → AC 18:12
PROVIDERS: Internal Medicine; Nurse Practitioner Family; Admitting Provider Internal Medicine; Emergency Provider Emergency Medicine; PCP Nurse Practitioner Family; Referring Provider Emergency Medicine; Visit Provider Internal Medicine
DX: A41.89 Other specified sepsis (principal); G93.41 Metabolic encephalopathy; N39.0 Urinary tract infection, site not specified; Z68.42 Body mass index [BMI] 45.0-49.9, adult; I48.20 Chronic atrial fibrillation, unspecified; A04.72 Enterocolitis due to Clostridium difficile, not specified as recurrent; R65.20 Severe sepsis without septic shock; E87.6 Hypokalemia; E66.01 Morbid (severe) obesity due to excess calories; J45.909 Unspecified asthma, uncomplicated; I10 Essential (primary) hypertension; F32.9 Major depressive disorder, single episode, unspecified; F41.9 Anxiety disorder, unspecified; M15.9 Polyosteoarthritis, unspecified; I89.0 Lymphedema, not elsewhere classified; K21.9 Gastro-esophageal reflux disease without esophagitis; G47.00 Insomnia, unspecified; D50.9 Iron deficiency anemia, unspecified; Z20.822 Contact with and (suspected) exposure to COVID-19; Z79.01 Long term (current) use of anticoagulants; Z87.891 Personal history of nicotine dependence
CPT/HCPCS: 36415; 70450; 71045; 72170; 80048; 80053; 80202; 80305; 80320; 81001; 82550; 82805; 83605; 83735; 83880; 84100; 84145; 84146; 84443; 84484; 85025; 85027; 87040; 87077; 87086; 87150; 87186; 87205; 87324; 87493; 87635; 93005; 94640; 94760; 94762; 96365; 97162; 97530; 99285; C9803; J0696; J1956; J7613

== ENCOUNTER → 2021-08-26 17:13 | Outpatient (ROUT) | payer MEDICARE, SELFPAY ==
[2021-06-20 23:39] VITALS: BMI 45.7
[2021-08-29 09:21] LABS: COVID19 Sendout Not Detected (Not Detect)
== END ==
PROVIDERS: PCP Nurse Practitioner Family; Visit Provider Internal Medicine
DX: Z20.822 Contact with and (suspected) exposure to COVID-19 (principal)
CPT/HCPCS: 87635